=== PATIENT | female | born 1955 | race Caucasian/White ===

== ENCOUNTER 2017-03-15 16:40 | Emergency (ER) | payer MEDICARE, OTHER ==
[~2017-03-15] VITALS: Ht 147.3 cm; Wt 108.0 kg
--- OUTSIDE RECORDS SUMMARY | ~2017-03-15 | XMS ---
Demographics + + + | Address | [address] | | | [address] | | | [place] [address] | + + + | Preferred Language | Unknown | + + + | Marital Status | Unknown | + + + | Uatsdin Affiliation | Unknown | + + + | Race | Unknown | + + + | Ethnic Group | Unknown | + + + Author + + + | Author | [facility] | + + + | Organization | [facility] | + + + | Address | [address] | | | [place] [address] | + + + | Phone | | + + + Care Team Providers + + + + | Care Lime Boiler Name | Role | Phone | + + + + Unavailable | Unavailable | + + + + PROBLEMS +---------+ + + +--------+ + + | Type | Condition | ICD9-CM | [id number] | Onset | Condition | SNOMED | | | | Code | Code | Dates | Status | Code | +---------+ + + +--------+ + + | Problem | Migraine | G43.001 | | | Active | 07989607 | | | without | | | [...] | I11.9 | | | Active | 49363751 | | | ve | | | [...] | G43.101 | | | Active | 2940863 | | | with aura | | [...] | F33.1 | | | Active | 48756152 | | | , major, | | | | | | | | recurrent, | | | | | | | | moderate | | | | | | +---------+ + + +--------+ + + | 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 | 64290013 | | | tiated | | | | | | | | somatoform | | | | | | | | disorder | | | | | | +---------+ + + +--------+ + + | 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 | 79678915 | | | lorrie | | | | | | +---------+ + + +--------+ + + | Problem | Angina | I20.9 | | | Active | 025055560 | | | pectoris | | | [...] | K21.9 | | | Active | 131872826 | | | hageal | | | [...] | E66.01 | | | Active | 228081720 | | | obesity | | | | | | | | due to | | | | | | | | excess | | | | | | | | calories | | | | | | +---------+ + + +--------+ + + | Problem | Primary | M17.0 | | | Active | 965078827 | | | osteoarthr | | | | | | | | itis of | | | | | | | | both knees | | | | | | +---------+ + + +--------+ + + | Problem | Chronic | | G89.4 | | Active | 476036113 | | | pain | | | | | | | | syndrome | | | | | | +---------+ + + +--------+ + + | Problem | Essential | | I10 | | Active | 38751670 | | | hypertensi | | | | | | | | on | | | | | | +---------+ + + +--------+ + + | Problem | Type 2 | E11.9 | | | Active | 976657087 | | | diabetes | | | [...]
--- OUTSIDE RECORDS SUMMARY | ~2017-03-15 | XMS ---
Demographics + + + | Address | [address] | | | [address] | | | [place] [address] | + + + | Preferred Language [...] | + + + | Organization | [facility] | + + + | Address | [address] | | | [place] [address] | + + + | Phone | | + + + Care Team Providers + + + + | Care Web Content Manager Name | Role | Phone | + + + + Unavailable | Unavailable | + + + + PROBLEMS +---------+ + + +--------+ + + | Type | Condition | ICD9-CM | [id number] | Onset | Condition | SNOMED | | | | Code | Code | Dates | Status | Code | +---------+ + + +--------+ + + | Problem | Migraine | G43.001 | | | Active | 91494603 | | | without | | | [...] | I11.9 | | | Active | 50711999 | | | ve | | | [...] | G43.101 | | | Active | 3243080 | | | with aura | | [...] | F33.1 | | | Active | 07932728 | | | , major, | | | | | | | | recurrent, | | | | | | | | moderate | | | | | | +---------+ + + +--------+ + + | 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 | 64584291 | | | tiated | | | | | | | | somatoform | | | | | | | | disorder | | | | | | +---------+ + + +--------+ + + | 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 | 94064157 | | | lorrie | | | | | | +---------+ + + +--------+ + + | Problem | Angina | I20.9 | | | Active | 387567723 | | | pectoris | | | [...] | K21.9 | | | Active | 743877690 | | | hageal | | | [...] | E66.01 | | | Active | 114925312 | | | obesity | | | | | | | | due to | | | | | | | | excess | | | | | | | | calories | | | | | | +---------+ + + +--------+ + + | Problem | Primary | M17.0 | | | Active | 904951430 | | | osteoarthr | | | | | | | | itis of | | | | | | | | both knees | | | | | | +---------+ + + +--------+ + + | Problem | Chronic | | G89.4 | | Active | 424471780 | | | pain | | | | | | | | syndrome | | | | | | +---------+ + + +--------+ + + | Problem | Essential | | I10 | | Active | 48257343 | | | hypertensi | | | | | | | | on | | | | | | +---------+ + + +--------+ + + | Problem | Type 2 | E11.9 | | | Active | 947289673 | | | diabetes | | | [...]
--- OUTSIDE RECORDS SUMMARY | ~2017-03-15 | XMS ---
Demographics + + + | Address | [address] | | | [address] | | | [place] [address] | + + + | Preferred Language [...] | + + + | Organization | [facility] | + + + | Address | [address] | | | [place] [address] | + + + | Phone | | + + + Care Team Providers + + + + | Care Varnish Remover Name | Role | Phone | + + + + Unavailable | Unavailable | + + + + PROBLEMS +---------+ + + +--------+ + + | Type | Condition | ICD9-CM | [id number] | Onset | Condition | SNOMED | | | | Code | Code | Dates | Status | Code | +---------+ + + +--------+ + + | Problem | Migraine | G43.001 | | | Active | 62328405 | | | without | | | [...] | I11.9 | | | Active | 25435394 | | | ve | | | [...] | G43.101 | | | Active | 2816287 | | | with aura | | [...] | F33.1 | | | Active | 04544327 | | | , major, | | | | | | | | recurrent, | | | | | | | | moderate | | | | | | +---------+ + + +--------+ + + | 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 | 19850874 | | | tiated | | | | | | | | somatoform | | | | | | | | disorder | | | | | | +---------+ + + +--------+ + + | 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 | 17521519 | | | lorrie | | | | | | +---------+ + + +--------+ + + | Problem | Angina | I20.9 | | | Active | 830056815 | | | pectoris | | | [...] | K21.9 | | | Active | 085397687 | | | hageal | | | [...] | E66.01 | | | Active | 256374106 | | | obesity | | | | | | | | due to | | | | | | | | excess | | | | | | | | calories | | | | | | +---------+ + + +--------+ + + | Problem | Primary | M17.0 | | | Active | 543139096 | | | osteoarthr | | | | | | | | itis of | | | | | | | | both knees | | | | | | +---------+ + + +--------+ + + | Problem | Chronic | | G89.4 | | Active | 866305093 | | | pain | | | | | | | | syndrome | | | | | | +---------+ + + +--------+ + + | Problem | Essential | | I10 | | Active | 50149624 | | | hypertensi | | | | | | | | on | | | | | | +---------+ + + +--------+ + + | Problem | Type 2 | E11.9 | | | Active | 960535206 | | | diabetes | | | [...] available PLAN OF CARE VITAL SIGNS MEDICATIONS + + + + + + [...] + + +--------+ RESULTS No Results PROCEDURES No Known procedures IMMUNIZATIONS No Known Immunizations"
--- OUTSIDE RECORDS SUMMARY | ~2017-03-15 | XMS ---
Demographics + + + | Address | [address] | | | [address] | | | [place] [address] | + + + | Preferred Language | Unknown | + + + | Marital Status | Unknown | + + + | Scientologist Affiliation | Unknown | + + + | Race | Unknown | + + + | Ethnic Group | Unknown | + + + Author + + + | Author | [facility] | + + + | Organization | [facility] | + + + | Address | [address] | | | [place] [address] | + + + | Phone | | + + + Care Team Providers + + + + | Care Steel Rigger Name | Role | Phone | + + + + Unavailable | Unavailable | + + + + PROBLEMS +---------+ + + +--------+ + + | Type | Condition | ICD9-CM | XLO46-[id number] | Onset | Condition | SNOMED | | | | Code | Code | Dates | Status | Code | +---------+ + + +--------+ + + | Problem | Migraine | G43.001 | | | Active | 46894295 | | | without | | | [...] | I11.9 | | | Active | 80162454 | | | ve | | | [...] | G43.101 | | | Active | 6038157 | | | with aura | | [...] | F33.1 | | | Active | 52201448 | | | , major, | | | | | | | | recurrent, | | | | | | | | moderate | | | | | | +---------+ + + +--------+ + + | 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 | 49167647 | | | tiated | | | | | | | | somatoform | | | | | | | | disorder | | | | | | +---------+ + + +--------+ + + | 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 | 69349161 | | | lorrie | | | | | | +---------+ + + +--------+ + + | Problem | Angina | I20.9 | | | Active | 708145399 | | | pectoris | | | [...] | K21.9 | | | Active | 918059509 | | | hageal | | | [...] | E66.01 | | | Active | 725095437 | | | obesity | | | | | | | | due to | | | | | | | | excess | | | | | | | | calories | | | | | | +---------+ + + +--------+ + + | Problem | Primary | M17.0 | | | Active | 843790466 | | | osteoarthr | | | | | | | | itis of | | | | | | | | both knees | | | | | | +---------+ + + +--------+ + + | Problem | Chronic | | G89.4 | | Active | 852855077 | | | pain | | | | | | | | syndrome | | | | | | +---------+ + + +--------+ + + | Problem | Essential | | I10 | | Active | 59693701 | | | hypertensi | | | | | | | | on | | | | | | +---------+ + + +--------+ + + | Problem | Type 2 | E11.9 | | | Active | 299282931 | | | diabetes | | | [...]
--- OUTSIDE RECORDS SUMMARY | ~2017-03-15 | XMS ---
Demographics + + + | Address | [address] | | | [address] | | | [place] [address] | + + + | Preferred Language [...] | + + + | Organization | [facility] | + + + | Address | [address] | | | [place] [address] | + + + | Phone | | + + + Care Team Providers + + + + | Care Track Repairer Helper Name | Role | Phone | + + + + Unavailable | Unavailable | + + + + PROBLEMS +---------+ + + +--------+ + + | Type | Condition | ICD9-CM | KSP28-XM | Onset | Condition | SNOMED | | | | Code | Code | Dates | Status | Code | +---------+ + + +--------+ + + | Problem | Migraine | G43.001 | | | Active | 10829930 | | | without | | | [...] | I11.9 | | | Active | 49904872 | | | ve | | | [...] | G43.101 | | | Active | 1178735 | | | with aura | | [...] | F33.1 | | | Active | 70994482 | | | , major, | | | | | | | | recurrent, | | | | | | | | moderate | | | | | | +---------+ + + +--------+ + + | 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 | 94177865 | | | tiated | | | | | | | | somatoform | | | | | | | | disorder | | | | | | +---------+ + + +--------+ + + | 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 | 79302295 | | | lorrie | | | | | | +---------+ + + +--------+ + + | Problem | Angina | I20.9 | | | Active | 882253948 | | | pectoris | | | [...] | K21.9 | | | Active | 579557117 | | | hageal | | | [...] | E66.01 | | | Active | 941408197 | | | obesity | | | | | | | | due to | | | | | | | | excess | | | | | | | | calories | | | | | | +---------+ + + +--------+ + + | Problem | Primary | M17.0 | | | Active | 419728781 | | | osteoarthr | | | | | | | | itis of | | | | | | | | both knees | | | | | | +---------+ + + +--------+ + + | Problem | Chronic | | G89.4 | | Active | 880851097 | | | pain | | | | | | | | syndrome | | | | | | +---------+ + + +--------+ + + | Problem | Essential | | I10 | | Active | 25865859 | | | hypertensi | | | | | | | | on | | | | | | +---------+ + + +--------+ + + | Problem | Type 2 | E11.9 | | | Active | 659470708 | | | diabetes | | | [...]
--- OUTSIDE RECORDS SUMMARY | ~2017-03-15 | XMS ---
Demographics + + + | Address | [address] | | | [address] | | | [place] [address] | + + + | Preferred Language | Unknown | + + + | Marital Status | Unknown | + + + | Episcopal Affiliation | Unknown | + + + | Race | Unknown | + + + | Ethnic Group | Unknown | + + + Author + + + | Author | [facility] | + + + | Organization | [facility] | + + + | Address | [address] | | | [place] [address] | + + + | Phone | | + + + Care Team Providers + + + + | Care Informix Developer Name | Role | Phone | + + + + Unavailable | Unavailable | + + + + PROBLEMS +---------+ + + +--------+ + + | Type | Condition | ICD9-CM | HUM25-LP | Onset | Condition | SNOMED | | | | Code | Code | Dates | Status | Code | +---------+ + + +--------+ + + | Problem | Migraine | G43.001 | | | Active | 44057507 | | | without | | | [...] | I11.9 | | | Active | 50889576 | | | ve | | | [...] | G43.101 | | | Active | 2762576 | | | with aura | | [...] | F33.1 | | | Active | 24431908 | | | , major, | | | | | | | | recurrent, | | | | | | | | moderate | | | | | | +---------+ + + +--------+ + + | 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 | 55208486 | | | tiated | | | | | | | | somatoform | | | | | | | | disorder | | | | | | +---------+ + + +--------+ + + | 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 | 65872784 | | | lorrie | | | | | | +---------+ + + +--------+ + + | Problem | Angina | I20.9 | | | Active | 642011240 | | | pectoris | | | [...] | K21.9 | | | Active | 736458961 | | | hageal | | | [...] | E66.01 | | | Active | 140621389 | | | obesity | | | | | | | | due to | | | | | | | | excess | | | | | | | | calories | | | | | | +---------+ + + +--------+ + + | Problem | Primary | M17.0 | | | Active | 591968518 | | | osteoarthr | | | | | | | | itis of | | | | | | | | both knees | | | | | | +---------+ + + +--------+ + + | Problem | Chronic | | G89.4 | | Active | 413656851 | | | pain | | | | | | | | syndrome | | | | | | +---------+ + + +--------+ + + | Problem | Essential | | I10 | | Active | 37148360 | | | hypertensi | | | | | | | | on | | | | | | +---------+ + + +--------+ + + | Problem | Type 2 | E11.9 | | | Active | 892343809 | | | diabetes | | | [...]
--- OUTSIDE RECORDS SUMMARY | ~2017-03-15 | XMS ---
Demographics + + + | Address | [address] | | | [address] | | | [place] [address] | + + + | Preferred Language | Unknown | + + + | Marital Status | Unknown | + + + | Buddhism Affiliation | Unknown | + + + | Race | Unknown | + + + | Ethnic Group | Unknown | + + + Author + + + | Author | [facility] | + + + | Organization | [facility] | + + + | Address | [address] | | | [place] [address] | + + + | Phone | | + + + Care Team Providers + + + + | Care Field Observer Name | Role | Phone | + + + + Unavailable | Unavailable | + + + + PROBLEMS +---------+ + + +--------+ + + | Type | Condition | ICD9-CM | HYG68-[id number] | Onset | Condition | SNOMED | | | | Code | Code | Dates | Status | Code | +---------+ + + +--------+ + + | Problem | Migraine | G43.001 | | | Active | 33113665 | | | without | | | [...] | I11.9 | | | Active | 65330533 | | | ve | | | [...] | G43.101 | | | Active | 4668242 | | | with aura | | [...] | F33.1 | | | Active | 19244683 | | | , major, | | | | | | | | recurrent, | | | | | | | | moderate | | | | | | +---------+ + + +--------+ + + | 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 | 11873195 | | | tiated | | | | | | | | somatoform | | | | | | | | disorder | | | | | | +---------+ + + +--------+ + + | 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 | 71318664 | | | lorrie | | | | | | +---------+ + + +--------+ + + | Problem | Angina | I20.9 | | | Active | 339596271 | | | pectoris | | | [...] | K21.9 | | | Active | 188129657 | | | hageal | | | [...] | E66.01 | | | Active | 184734862 | | | obesity | | | | | | | | due to | | | | | | | | excess | | | | | | | | calories | | | | | | +---------+ + + +--------+ + + | Problem | Primary | M17.0 | | | Active | 438057423 | | | osteoarthr | | | | | | | | itis of | | | | | | | | both knees | | | | | | +---------+ + + +--------+ + + | Problem | Chronic | | G89.4 | | Active | 229692682 | | | pain | | | | | | | | syndrome | | | | | | +---------+ + + +--------+ + + | Problem | Essential | | I10 | | Active | 03001798 | | | hypertensi | | | | | | | | on | | | | | | +---------+ + + +--------+ + + | Problem | Type 2 | E11.9 | | | Active | 649268487 | | | diabetes | | | [...]
--- OUTSIDE RECORDS SUMMARY | ~2017-03-15 | XMS ---
Demographics + + + | Address | [address] | | | [address] | | | [place] [address] | + + + | Preferred Language | Unknown | + + + | Marital Status | Unknown | + + + | Denominational Affiliation | Unknown | + + + | Race | Unknown | + + + | Ethnic Group | Unknown | + + + Author + + + | Author | [facility] | + + + | Organization | [facility] | + + + | Address | [address] | | | [place] [address] | + + + | Phone | | + + + Care Team Providers + + + + | Care Grape Crusher Name | Role | Phone | + + + + Unavailable | Unavailable | + + + + PROBLEMS +---------+ + + +--------+ + + | Type | Condition | ICD9-CM | BLW98-[id number] | Onset | Condition | SNOMED | | | | Code | Code | Dates | Status | Code | +---------+ + + +--------+ + + | Problem | Migraine | G43.001 | | | Active | 96482576 | | | without | | | [...] | I11.9 | | | Active | 39416733 | | | ve | | | [...] | G43.101 | | | Active | 2114251 | | | with aura | | [...] | F33.1 | | | Active | 43062668 | | | , major, | | | | | | | | recurrent, | | | | | | | | moderate | | | | | | +---------+ + + +--------+ + + | 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 | 45295918 | | | tiated | | | | | | | | somatoform | | | | | | | | disorder | | | | | | +---------+ + + +--------+ + + | 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 | 81212521 | | | lorrie | | | | | | +---------+ + + +--------+ + + | Problem | Angina | I20.9 | | | Active | 457330317 | | | pectoris | | | [...] | K21.9 | | | Active | 689099528 | | | hageal | | | [...] | E66.01 | | | Active | 604501501 | | | obesity | | | | | | | | due to | | | | | | | | excess | | | | | | | | calories | | | | | | +---------+ + + +--------+ + + | Problem | Primary | M17.0 | | | Active | 537028666 | | | osteoarthr | | | | | | | | itis of | | | | | | | | both knees | | | | | | +---------+ + + +--------+ + + | Problem | Chronic | | G89.4 | | Active | 533498797 | | | pain | | | | | | | | syndrome | | | | | | +---------+ + + +--------+ + + | Problem | Essential | | I10 | | Active | 40213499 | | | hypertensi | | | | | | | | on | | | | | | +---------+ + + +--------+ + + | Problem | Type 2 | E11.9 | | | Active | 760405259 | | | diabetes | | | [...]
--- OUTSIDE RECORDS SUMMARY | ~2017-03-15 | XMS ---
Demographics + + + | Address | [address] | | | [address] | | | [place] [address] | + + + | Preferred Language | Unknown | + + + | Marital Status | Unknown | + + + | Taoism Affiliation | Unknown | + + + | Race | Unknown | + + + | Ethnic Group | Unknown | + + + Author + + + | Author | [facility] | + + + | Organization | [facility] | + + + | Address | [address] | | | [place] [address] | + + + | Phone | | + + + Care Team Providers + + + + | Care Pharmacy Benefit Manager Name | Role | Phone | + + + + Unavailable | Unavailable | + + + + PROBLEMS +---------+ + + +--------+ + + | Type | Condition | ICD9-CM | HKT44-KO | Onset | Condition | SNOMED | | | | Code | Code | Dates | Status | Code | +---------+ + + +--------+ + + | Problem | Migraine | G43.001 | | | Active | 95388778 | | | without | | | [...] | I11.9 | | | Active | 62135381 | | | ve | | | [...] | G43.101 | | | Active | 7441167 | | | with aura | | [...] | F33.1 | | | Active | 72377285 | | | , major, | | | | | | | | recurrent, | | | | | | | | moderate | | | | | | +---------+ + + +--------+ + + | 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 | 80793812 | | | tiated | | | | | | | | somatoform | | | | | | | | disorder | | | | | | +---------+ + + +--------+ + + | 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 | 17901512 | | | lorrie | | | | | | +---------+ + + +--------+ + + | Problem | Angina | I20.9 | | | Active | 275418508 | | | pectoris | | | [...] | K21.9 | | | Active | 022932795 | | | hageal | | | [...] | E66.01 | | | Active | 942208692 | | | obesity | | | | | | | | due to | | | | | | | | excess | | | | | | | | calories | | | | | | +---------+ + + +--------+ + + | Problem | Primary | M17.0 | | | Active | 074186875 | | | osteoarthr | | | | | | | | itis of | | | | | | | | both knees | | | | | | +---------+ + + +--------+ + + | Problem | Chronic | | G89.4 | | Active | 184140626 | | | pain | | | | | | | | syndrome | | | | | | +---------+ + + +--------+ + + | Problem | Essential | | I10 | | Active | 05117910 | | | hypertensi | | | | | | | | on | | | | | | +---------+ + + +--------+ + + | Problem | Type 2 | E11.9 | | | Active | 184702456 | | | diabetes | | | [...] information available PLAN OF CARE VITAL SIGNS + + + + | Height | 4 ft 10 in in | 2017-02-01 | + + + + | Weight | 244.0 lbs | 2017-02-01 | + + + + | BMI | 50.99 kg/m2 | 2017-02-01 | + + + + | Heart Rate | 79 /min | 2017-02-01 | + + + + | Blood pressure systolic | 145 mm Hg | 2017-02-01 | + + + + | Blood pressure diastolic | 81 mm Hg | 2017-02-01 | + + + + MEDICATIONS + [...] Orally | 1 tablet | 24h | Nov, | | 30 days | Active | | de | Once a | | | 2016 | | | | | Mononitr | day | | | | | | | | ate ER | | | | | | | | | 30 MG | | | | | | | | + + + + + + + +--------+ | Salsalat | Orally | 1-2 | | Aug, | Dec, | 30 | Active | | e 750 MG | two to | tablet | | 2015 | 2016 | day(s) | | | | three | | | | | | | | | times a | | | | | | | | | day prn | | | | | | | | | with | | | | | | | | | food | | | | | | | [...] + + + + + +--------+ | Nitrogly | | | | | | | Active | | cerin | | | | | | | | | 0.4 MG | | | | | | | | + + + + + + + +--------+ | Depend | | as | | 23 Hector, | | 30 | Active | | Underwea | | directed | | 2017 | | day(s) | | | r | | | | | | | | | X-Large | | | | | | | | | . | | | | | | | [...] 24h | Sep, | 7 Feb, | 30 days | Active | | Barrier | y once | applicat | | 2017 | 2018 | | | | Cream . | daily | ion | | | | | | + + + + + + + +--------+ RESULTS No Results PROCEDURES No Known procedures IMMUNIZATIONS No Known Immunizations"
--- OUTSIDE RECORDS SUMMARY | ~2017-03-15 | XMS ---
Demographics + + + | Address | [address] | | | [address] | | | [place] [address] | + + + | Preferred Language | Unknown | + + + | Marital Status | Unknown | + + + | Hoahaoism Affiliation | Unknown | + + + | Race | Unknown | + + + | Ethnic Group | Unknown | + + + Author + + + | Author | [facility] | + + + | Organization | [facility] | + + + | Address | [address] | | | [place] [address] | + + + | Phone | | + + + Care Team Providers + + + + | Care Third Steel Pourer Name | Role | Phone | + + + + Unavailable | Unavailable | + + + + PROBLEMS +---------+ + + +--------+ + + | Type | Condition | ICD9-CM | [id number] | Onset | Condition | SNOMED | | | | Code | Code | Dates | Status | Code | +---------+ + + +--------+ + + | Problem | Migraine | G43.001 | | | Active | 07673121 | | | without | | | [...] | I11.9 | | | Active | 14913698 | | | ve | | | [...] | G43.101 | | | Active | 2927847 | | | with aura | | [...] | F33.1 | | | Active | 48583104 | | | , major, | | | | | | | | recurrent, | | | | | | | | moderate | | | | | | +---------+ + + +--------+ + + | 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 | 71491538 | | | tiated | | | | | | | | somatoform | | | | | | | | disorder | | | | | | +---------+ + + +--------+ + + | 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 | 13198069 | | | lorrie | | | | | | +---------+ + + +--------+ + + | Problem | Angina | I20.9 | | | Active | [id number] | | | pectoris | | | [...] | K21.9 | | | Active | [id number] | | | hageal | | | [...] | E66.01 | | | Active | [id number] | | | obesity | | | | | | | | due to | | | | | | | | excess | | | | | | | | calories | | | | | | +---------+ + + +--------+ + + | Problem | Primary | M17.0 | | | Active | [id number] | | | osteoarthr | | | | | | | | itis of | | | | | | | | both knees | | | | | | +---------+ + + +--------+ + + | Problem | Chronic | | G89.4 | | Active | [id number] | | | pain | | | | | | | | syndrome | | | | | | +---------+ + + +--------+ + + | Problem | Essential | | I10 | | Active | [id number] | | | hypertensi | | | | | | | | on | | | | | | +---------+ + + +--------+ + + | Problem | Type 2 | E11.9 | | | Active | [id number] | | | diabetes | | | [...]
--- OUTSIDE RECORDS SUMMARY | ~2017-03-15 | XMS ---
Demographics + + + | Address | [address] | | | [address] | | | [place] [address] | + + + | Preferred Language | Unknown | + + + | Marital Status | Unknown | + + + | Yarsanism Affiliation | Unknown | + + + | Race | Unknown | + + + | Ethnic Group | Unknown | + + + Author + + + | Author | [facility] | + + + | Organization | [facility] | + + + | Address | [address] | | | [place] [address] | + + + | Phone | | + + + Care Team Providers + + + + | Care Monorail Hooker Name | Role | Phone | + + + + Unavailable | Unavailable | + + + + PROBLEMS +---------+ + + +--------+ + + | Type | Condition | ICD9-CM | [id number] | Onset | Condition | SNOMED | | | | Code | Code | Dates | Status | Code | +---------+ + + +--------+ + + | Problem | Migraine | G43.001 | | | Active | 41010581 | | | without | | | [...] | I11.9 | | | Active | 12044042 | | | ve | | | [...] | G43.101 | | | Active | 5649699 | | | with aura | | [...] | F33.1 | | | Active | 34952870 | | | , major, | | | | | | | | recurrent, | | | | | | | | moderate | | | | | | +---------+ + + +--------+ + + | 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 | 96950273 | | | tiated | | | | | | | | somatoform | | | | | | | | disorder | | | | | | +---------+ + + +--------+ + + | 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 | 59904121 | | | lorrie | | | | | | +---------+ + + +--------+ + + | Problem | Angina | I20.9 | | | Active | 617216543 | | | pectoris | | | [...] | K21.9 | | | Active | 673628511 | | | hageal | | | [...] | E66.01 | | | Active | 662921826 | | | obesity | | | | | | | | due to | | | | | | | | excess | | | | | | | | calories | | | | | | +---------+ + + +--------+ + + | Problem | Primary | M17.0 | | | Active | 417006115 | | | osteoarthr | | | | | | | | itis of | | | | | | | | both knees | | | | | | +---------+ + + +--------+ + + | Problem | Chronic | | G89.4 | | Active | 600578326 | | | pain | | | | | | | | syndrome | | | | | | +---------+ + + +--------+ + + | Problem | Essential | | I10 | | Active | 12984373 | | | hypertensi | | | | | | | | on | | | | | | +---------+ + + +--------+ + + | Problem | Type 2 | E11.9 | | | Active | 217707105 | | | diabetes | | | [...]
--- OUTSIDE RECORDS SUMMARY | ~2017-03-15 | XMS ---
Demographics + + + | Address | [address] | | | [address] | | | [place] [address] | + + + | Preferred Language | Unknown | + + + | Marital Status | Unknown | + + + | Mandaeism Affiliation | Unknown | + + + | Race | Unknown | + + + | Ethnic Group | Unknown | + + + Author + + + | Author | [facility] | + + + | Organization | [facility] | + + + | Address | [address] | | | [place] [address] | + + + | Phone | | + + + Care Team Providers + + + + | Care Apparatus Lineman Name | Role | Phone | + + + + Unavailable | Unavailable | + + + + PROBLEMS +---------+ + + +--------+ + + | Type | Condition | ICD9-CM | OJE32-FR | Onset | Condition | SNOMED | | | | Code | Code | Dates | Status | Code | +---------+ + + +--------+ + + | Problem | Migraine | G43.001 | | | Active | 25166526 | | | without | | | [...] | I11.9 | | | Active | 37433667 | | | ve | | | [...] | G43.101 | | | Active | 7298035 | | | with aura | | [...] | F33.1 | | | Active | 18941242 | | | , major, | | | | | | | | recurrent, | | | | | | | | moderate | | | | | | +---------+ + + +--------+ + + | 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 | 69309341 | | | tiated | | | | | | | | somatoform | | | | | | | | disorder | | | | | | +---------+ + + +--------+ + + | 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 | 34907051 | | | lorrie | | | | | | +---------+ + + +--------+ + + | Problem | Angina | I20.9 | | | Active | 957598089 | | | pectoris | | | [...] | K21.9 | | | Active | 073211182 | | | hageal | | | [...] | E66.01 | | | Active | 254405351 | | | obesity | | | | | | | | due to | | | | | | | | excess | | | | | | | | calories | | | | | | +---------+ + + +--------+ + + | Problem | Primary | M17.0 | | | Active | 992781990 | | | osteoarthr | | | | | | | | itis of | | | | | | | | both knees | | | | | | +---------+ + + +--------+ + + | Problem | Chronic | | G89.4 | | Active | 042849239 | | | pain | | | | | | | | syndrome | | | | | | +---------+ + + +--------+ + + | Problem | Essential | | I10 | | Active | 07386351 | | | hypertensi | | | | | | | | on | | | | | | +---------+ + + +--------+ + + | Problem | Type 2 | E11.9 | | | Active | 190906843 | | | diabetes | | | [...] Salsalat | Orally | 1-2 | | 01 Dec, | 26 Dec, | 30 | Active | | e 750 MG | two to | tablet | | 2016 | 2017 | day(s) | | | | three [...] | 24h | 10 Nov, | | 30 days | Active [...] | 13 Sep, | 7 Feb, | 30 days [...]
--- OUTSIDE RECORDS SUMMARY | ~2017-03-15 | XMS ---
Demographics + + + | Address | [address] | | | [address] | | | [place] [address] | + + + | Preferred Language | Unknown | + + + | Marital Status | Unknown | + + + | Orthodox Affiliation | Unknown | + + + | Race | Unknown | + + + | Ethnic Group | Unknown | + + + Author + + + | Author | [facility] | + + + | Organization | [facility] | + + + | Address | [address] | | | [place] [address] | + + + | Phone | | + + + Care Team Providers + + + + | Care Parking Officer Name | Role | Phone | + + + + Unavailable | Unavailable | + + + + PROBLEMS +---------+ + + +--------+ + + | Type | Condition | ICD9-CM | TER94-OQ | Onset | Condition | SNOMED | | | | Code | Code | Dates | Status | Code | +---------+ + + +--------+ + + | Problem | Migraine | G43.001 | | | Active | 40640317 | | | without | | | [...] | I11.9 | | | Active | 41231020 | | | ve | | | [...] | G43.101 | | | Active | 5411305 | | | with aura | | [...] | F33.1 | | | Active | 75362152 | | | , major, | | | | | | | | recurrent, | | | | | | | | moderate | | | | | | +---------+ + + +--------+ + + | 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 | 99296265 | | | tiated | | | | | | | | somatoform | | | | | | | | disorder | | | | | | +---------+ + + +--------+ + + | 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 | 10372897 | | | lorrie | | | | | | +---------+ + + +--------+ + + | Problem | Angina | I20.9 | | | Active | 268158808 | | | pectoris | | | [...] | K21.9 | | | Active | 585385894 | | | hageal | | | [...] | E66.01 | | | Active | 495874362 | | | obesity | | | | | | | | due to | | | | | | | | excess | | | | | | | | calories | | | | | | +---------+ + + +--------+ + + | Problem | Primary | M17.0 | | | Active | 531740248 | | | osteoarthr | | | | | | | | itis of | | | | | | | | both knees | | | | | | +---------+ + + +--------+ + + | Problem | Chronic | | G89.4 | | Active | 517257721 | | | pain | | | | | | | | syndrome | | | | | | +---------+ + + +--------+ + + | Problem | Essential | | I10 | | Active | 98020995 | | | hypertensi | | | | | | | | on | | | | | | +---------+ + + +--------+ + + | Problem | Type 2 | E11.9 | | | Active | 102943226 | | | diabetes | | | [...]
--- OUTSIDE RECORDS SUMMARY | ~2017-03-15 | XMS ---
Demographics + + + | Address | [address] | | | [address] | | | [place] [address] | + + + | Preferred Language | Unknown | + + + | Marital Status | Unknown | + + + | Druze Affiliation | Unknown | + + + | Race | Unknown | + + + | Ethnic Group | Unknown | + + + Author + + + | Author | [facility] | + + + | Organization | [facility] | + + + | Address | [address] | | | [place] [address] | + + + | Phone | | + + + Care Team Providers + + + + | Care Buyer Broker Name | Role | Phone | + + + + Unavailable | Unavailable | + + + + PROBLEMS +---------+ + + +--------+ + + | Type | Condition | ICD9-CM | NLS60-ZV | Onset | Condition | SNOMED | | | | Code | Code | Dates | Status | Code | +---------+ + + +--------+ + + | Problem | Migraine | G43.001 | | | Active | 92249435 | | | without | | | [...] | I11.9 | | | Active | 84776058 | | | ve | | | [...] | G43.101 | | | Active | 0408456 | | | with aura | | [...] | F33.1 | | | Active | 57187998 | | | , major, | | | | | | | | recurrent, | | | | | | | | moderate | | | | | | +---------+ + + +--------+ + + | 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 | 23576513 | | | tiated | | | | | | | | somatoform | | | | | | | | disorder | | | | | | +---------+ + + +--------+ + + | 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 | 89093615 | | | lorrie | | | | | | +---------+ + + +--------+ + + | Problem | Angina | I20.9 | | | Active | 639046930 | | | pectoris | | | [...] | K21.9 | | | Active | 200504880 | | | hageal | | | [...] | E66.01 | | | Active | 562402010 | | | obesity | | | | | | | | due to | | | | | | | | excess | | | | | | | | calories | | | | | | +---------+ + + +--------+ + + | Problem | Primary | M17.0 | | | Active | 238816895 | | | osteoarthr | | | | | | | | itis of | | | | | | | | both knees | | | | | | +---------+ + + +--------+ + + | Problem | Chronic | | G89.4 | | Active | 822317211 | | | pain | | | | | | | | syndrome | | | | | | +---------+ + + +--------+ + + | Problem | Essential | | I10 | | Active | 78438785 | | | hypertensi | | | | | | | | on | | | | | | +---------+ + + +--------+ + + | Problem | Type 2 | E11.9 | | | Active | 339211626 | | | diabetes | | | [...]
--- OUTSIDE RECORDS SUMMARY | ~2017-03-15 | XMS ---
Demographics + + + | Address | [address] | | | [address] | | | [place] [address] | + + + | Preferred Language | Unknown | + + + | Marital Status | Unknown | + + + | Presybeterian Affiliation | Unknown | + + + | Race | Unknown | + + + | Ethnic Group | Unknown | + + + Author + + + | Author | [facility] | + + + | Organization | [facility] | + + + | Address | [address] | | | [place] [address] | + + + | Phone | | + + + Care Team Providers + + + + | Care Public Policy Analyst Name | Role | Phone | + + + + Unavailable | Unavailable | + + + + PROBLEMS +---------+ + + +--------+ + + | Type | Condition | ICD9-CM | OUM70-QU | Onset | Condition | SNOMED | | | | Code | Code | Dates | Status | Code | +---------+ + + +--------+ + + | Problem | Migraine | G43.001 | | | Active | 51468552 | | | without | | | [...] | I11.9 | | | Active | 92358318 | | | ve | | | [...] | G43.101 | | | Active | 0150208 | | | with aura | | [...] | F33.1 | | | Active | 44408961 | | | , major, | | | | | | | | recurrent, | | | | | | | | moderate | | | | | | +---------+ + + +--------+ + + | 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 | 81814890 | | | tiated | | | | | | | | somatoform | | | | | | | | disorder | | | | | | +---------+ + + +--------+ + + | 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 | 33407718 | | | lorrie | | | | | | +---------+ + + +--------+ + + | Problem | Angina | I20.9 | | | Active | 303195498 | | | pectoris | | | [...] | K21.9 | | | Active | 077208640 | | | hageal | | | [...] | E66.01 | | | Active | 519925239 | | | obesity | | | | | | | | due to | | | | | | | | excess | | | | | | | | calories | | | | | | +---------+ + + +--------+ + + | Problem | Primary | M17.0 | | | Active | 137311860 | | | osteoarthr | | | | | | | | itis of | | | | | | | | both knees | | | | | | +---------+ + + +--------+ + + | Problem | Chronic | | G89.4 | | Active | 515829627 | | | pain | | | | | | | | syndrome | | | | | | +---------+ + + +--------+ + + | Problem | Essential | | I10 | | Active | 70538653 | | | hypertensi | | | | | | | | on | | | | | | +---------+ + + +--------+ + + | Problem | Type 2 | E11.9 | | | Active | 638379317 | | | diabetes | | | [...]
--- OUTSIDE RECORDS SUMMARY | ~2017-03-15 | XMS ---
Demographics + + + | Address | [address] | | | [address] | | | [place] [address] | + + + | Preferred Language [...] | + + + | Organization | [facility] | + + + | Address | [address] | | | [place] [address] | + + + | Phone | | + + + Care Team Providers + + + + | Care Cloth Finisher Name | Role | Phone | + + + + Unavailable | Unavailable | + + + + PROBLEMS +---------+ + + +--------+ + + | Type | Condition | ICD9-CM | YQL21-TL | Onset | Condition | SNOMED | | | | Code | Code | Dates | Status | Code | +---------+ + + +--------+ + + | Problem | Migraine | G43.001 | | | Active | 96028021 | | | without | | | [...] | I11.9 | | | Active | 81373648 | | | ve | | | [...] | G43.101 | | | Active | 5006892 | | | with aura | | [...] | F33.1 | | | Active | 76570308 | | | , major, | | | | | | | | recurrent, | | | | | | | | moderate | | | | | | +---------+ + + +--------+ + + | 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 | 34830220 | | | tiated | | | | | | | | somatoform | | | | | | | | disorder | | | | | | +---------+ + + +--------+ + + | 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 | 68442628 | | | lorrie | | | | | | +---------+ + + +--------+ + + | Problem | Angina | I20.9 | | | Active | 572675405 | | | pectoris | | | [...] | K21.9 | | | Active | 189045646 | | | hageal | | | [...] | E66.01 | | | Active | 480718422 | | | obesity | | | | | | | | due to | | | | | | | | excess | | | | | | | | calories | | | | | | +---------+ + + +--------+ + + | Problem | Primary | M17.0 | | | Active | 637730216 | | | osteoarthr | | | | | | | | itis of | | | | | | | | both knees | | | | | | +---------+ + + +--------+ + + | Problem | Chronic | | G89.4 | | Active | 800197253 | | | pain | | | | | | | | syndrome | | | | | | +---------+ + + +--------+ + + | Problem | Essential | | I10 | | Active | 87933162 | | | hypertensi | | | | | | | | on | | | | | | +---------+ + + +--------+ + + | Problem | Type 2 | E11.9 | | | Active | 500848541 | | | diabetes | | | [...]
--- OUTSIDE RECORDS SUMMARY | ~2017-03-15 | XMS ---
Demographics + + + | Address | [address] | | | [address] | | | [place] [address] | + + + | Preferred Language | Unknown | + + + | Marital Status | Unknown | + + + | Yazdanism Affiliation | Unknown | + + + | Race | Unknown | + + + | Ethnic Group | Unknown | + + + Author + + + | Author | [facility] | + + + | Organization | [facility] | + + + | Address | [address] | | | [place] [address] | + + + | Phone | | + + + Care Team Providers + + + + | Care Dietary Cook Name | Role | Phone | + + + + Unavailable | Unavailable | + + + + PROBLEMS +---------+ + + +--------+ + + | Type | Condition | ICD9-CM | KIZ49-TE | Onset | Condition | SNOMED | | | | Code | Code | Dates | Status | Code | +---------+ + + +--------+ + + | Problem | Migraine | G43.001 | | | Active | 87753123 | | | without | | | [...] | I11.9 | | | Active | 78973816 | | | ve | | | [...] | G43.101 | | | Active | 2102484 | | | with aura | | [...] | F33.1 | | | Active | 84930684 | | | , major, | | | | | | | | recurrent, | | | | | | | | moderate | | | | | | +---------+ + + +--------+ + + | 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 | 56043813 | | | tiated | | | | | | | | somatoform | | | | | | | | disorder | | | | | | +---------+ + + +--------+ + + | 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 | 06570159 | | | lorrie | | | | | | +---------+ + + +--------+ + + | Problem | Angina | I20.9 | | | Active | 348078419 | | | pectoris | | | [...] | K21.9 | | | Active | 195394508 | | | hageal | | | [...] | E66.01 | | | Active | 317679912 | | | obesity | | | | | | | | due to | | | | | | | | excess | | | | | | | | calories | | | | | | +---------+ + + +--------+ + + | Problem | Primary | M17.0 | | | Active | 229843672 | | | osteoarthr | | | | | | | | itis of | | | | | | | | both knees | | | | | | +---------+ + + +--------+ + + | Problem | Chronic | | G89.4 | | Active | 342355981 | | | pain | | | | | | | | syndrome | | | | | | +---------+ + + +--------+ + + | Problem | Essential | | I10 | | Active | 49540817 | | | hypertensi | | | | | | | | on | | | | | | +---------+ + + +--------+ + + | Problem | Type 2 | E11.9 | | | Active | 854465781 | | | diabetes | | | [...]
--- OUTSIDE RECORDS SUMMARY | ~2017-03-15 | XMS ---
Demographics + + + | Address | [address] | | | [address] | | | [place] [address] | + + + | Preferred Language | Unknown | + + + | Marital Status | Unknown | + + + | Gnosticism Affiliation | Unknown | + + + | Race | Unknown | + + + | Ethnic Group | Unknown | + + + Author + + + | Author | [facility] | + + + | Organization | [facility] | + + + | Address | [address] | | | [place] [address] | + + + | Phone | | + + + Care Team Providers + + + + | Care Oyster Grower Name | Role | Phone | + + + + Unavailable | Unavailable | + + + + PROBLEMS +---------+ + + +--------+ + + | Type | Condition | ICD9-CM | OTJ25-ES | Onset | Condition | SNOMED | | | | Code | Code | Dates | Status | Code | +---------+ + + +--------+ + + | Problem | Migraine | G43.001 | | | Active | 05384465 | | | without | | | [...] | I11.9 | | | Active | 23133664 | | | ve | | | [...] | G43.101 | | | Active | 9745327 | | | with aura | | [...] | F33.1 | | | Active | 40101637 | | | , major, | | | | | | | | recurrent, | | | | | | | | moderate | | | | | | +---------+ + + +--------+ + + | 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 | 42358369 | | | tiated | | | | | | | | somatoform | | | | | | | | disorder | | | | | | +---------+ + + +--------+ + + | 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 | 22769553 | | | lorrie | | | | | | +---------+ + + +--------+ + + | Problem | Angina | I20.9 | | | Active | 351217587 | | | pectoris | | | [...] | K21.9 | | | Active | 315080953 | | | hageal | | | [...] | E66.01 | | | Active | 198664113 | | | obesity | | | | | | | | due to | | | | | | | | excess | | | | | | | | calories | | | | | | +---------+ + + +--------+ + + | Problem | Primary | M17.0 | | | Active | 551261080 | | | osteoarthr | | | | | | | | itis of | | | | | | | | both knees | | | | | | +---------+ + + +--------+ + + | Problem | Chronic | | G89.4 | | Active | 435755371 | | | pain | | | | | | | | syndrome | | | | | | +---------+ + + +--------+ + + | Problem | Essential | | I10 | | Active | 18321105 | | | hypertensi | | | | | | | | on | | | | | | +---------+ + + +--------+ + + | Problem | Type 2 | E11.9 | | | Active | 194949245 | | | diabetes | | | [...]
--- OUTSIDE RECORDS SUMMARY | ~2017-03-15 | XMS ---
Demographics + + + | Address | [address] | | | [address] | | | [place] [address] | + + + | Preferred Language | Unknown | + + + | Marital Status | Unknown | + + + | Zoroastrianism Affiliation | Unknown | + + + | Race | Unknown | + + + | Ethnic Group | Unknown | + + + Author + + + | Author | [facility] | + + + | Organization | [facility] | + + + | Address | [address] | | | [place] [address] | + + + | Phone | | + + + Care Team Providers + + + + | Care Compound Specialist Name | Role | Phone | + + + + Unavailable | Unavailable | + + + + PROBLEMS +---------+ + + +--------+ + + | Type | Condition | ICD9-CM | FMQ43-ZB | Onset | Condition | SNOMED | | | | Code | Code | Dates | Status | Code | +---------+ + + +--------+ + + | Problem | Migraine | G43.001 | | | Active | 05527672 | | | without | | | [...] | I11.9 | | | Active | 55621399 | | | ve | | | [...] | G43.101 | | | Active | 6299952 | | | with aura | | [...] | F33.1 | | | Active | 09134932 | | | , major, | | | | | | | | recurrent, | | | | | | | | moderate | | | | | | +---------+ + + +--------+ + + | 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 | 80272726 | | | tiated | | | | | | | | somatoform | | | | | | | | disorder | | | | | | +---------+ + + +--------+ + + | 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 | 47515891 | | | lorrie | | | | | | +---------+ + + +--------+ + + | Problem | Angina | I20.9 | | | Active | 742366532 | | | pectoris | | | [...] | K21.9 | | | Active | 851570627 | | | hageal | | | [...] | E66.01 | | | Active | 215642492 | | | obesity | | | | | | | | due to | | | | | | | | excess | | | | | | | | calories | | | | | | +---------+ + + +--------+ + + | Problem | Primary | M17.0 | | | Active | 165848474 | | | osteoarthr | | | | | | | | itis of | | | | | | | | both knees | | | | | | +---------+ + + +--------+ + + | Problem | Chronic | | G89.4 | | Active | 311522906 | | | pain | | | | | | | | syndrome | | | | | | +---------+ + + +--------+ + + | Problem | Essential | | I10 | | Active | 85028500 | | | hypertensi | | | | | | | | on | | | | | | +---------+ + + +--------+ + + | Problem | Type 2 | E11.9 | | | Active | 053365691 | | | diabetes | | | [...]
--- OUTSIDE RECORDS SUMMARY | ~2017-03-15 | XMS ---
Demographics + + + | Address | [address] | | | [address] | | | [place] [address] | + + + | Preferred Language [...] | Organization | [facility] | + + + | Address | [address] | | | [place] [address] | + + + | Phone | | + + + Care Team Providers + + + + | Care Pinsetter Mechanic Helper Name | Role | Phone | + + + + Unavailable | Unavailable | + + + + PROBLEMS +---------+ + + +--------+ + + | Type | Condition | ICD9-CM | ICO40-BI | Onset | Condition | SNOMED | | | | Code | Code | Dates | Status | Code | +---------+ + + +--------+ + + | Problem | Migraine | G43.001 | | | Active | 88879916 | | | without | | | [...] | I11.9 | | | Active | 30953899 | | | ve | | | [...] | G43.101 | | | Active | 7758226 | | | with aura | | [...] | F33.1 | | | Active | 94861446 | | | , major, | | | | | | | | recurrent, | | | | | | | | moderate | | | | | | +---------+ + + +--------+ + + | 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 | 29106854 | | | tiated | | | | | | | | somatoform | | | | | | | | disorder | | | | | | +---------+ + + +--------+ + + | 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 | 96163437 | | | lorrie | | | | | | +---------+ + + +--------+ + + | Problem | Angina | I20.9 | | | Active | 286724601 | | | pectoris | | | [...] | K21.9 | | | Active | 239616317 | | | hageal | | | [...] | E66.01 | | | Active | 356238765 | | | obesity | | | | | | | | due to | | | | | | | | excess | | | | | | | | calories | | | | | | +---------+ + + +--------+ + + | Problem | Primary | M17.0 | | | Active | 298571768 | | | osteoarthr | | | | | | | | itis of | | | | | | | | both knees | | | | | | +---------+ + + +--------+ + + | Problem | Chronic | | G89.4 | | Active | 383293857 | | | pain | | | | | | | | syndrome | | | | | | +---------+ + + +--------+ + + | Problem | Essential | | I10 | | Active | 16459229 | | | hypertensi | | | | | | | | on | | | | | | +---------+ + + +--------+ + + | Problem | Type 2 | E11.9 | | | Active | 156364202 | | | diabetes | | | [...]
--- OUTSIDE RECORDS SUMMARY | ~2017-03-15 | XMS ---
Demographics + + + | Address | [address] | | | [address] | | | [place] [address] | + + + | Preferred Language | Unknown | + + + | Marital Status | Unknown | + + + | Samaritan Affiliation | Unknown | + + + | Race | Unknown | + + + | Ethnic Group | Unknown | + + + Author + + + | Author | [facility] | + + + | Organization | [facility] | + + + | Address | [address] | | | [place] [address] | + + + | Phone | | + + + Care Team Providers + + + + | Care Auto Service Dispatcher Name | Role | Phone | + + + + Unavailable | Unavailable | + + + + PROBLEMS +---------+ + + +--------+ + + | Type | Condition | ICD9-CM | [id number] | Onset | Condition | SNOMED | | | | Code | Code | Dates | Status | Code | +---------+ + + +--------+ + + | Problem | Migraine | G43.001 | | | Active | 88967723 | | | without | | | [...] | I11.9 | | | Active | 21034021 | | | ve | | | [...] | G43.101 | | | Active | 2941996 | | | with aura | | [...] | F33.1 | | | Active | 68951642 | | | , major, | | | | | | | | recurrent, | | | | | | | | moderate | | | | | | +---------+ + + +--------+ + + | 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 | 70043726 | | | tiated | | | | | | | | somatoform | | | | | | | | disorder | | | | | | +---------+ + + +--------+ + + | 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 | | | | | | +---------+ + + +--------+ + + | Problem | Angina | I20.9 | | | Active | 042945205 | | | pectoris | | | [...] | K21.9 | | | Active | 137146792 | | | hageal | | | [...] | E66.01 | | | Active | 212139171 | | | obesity | | | | | | | | due to | | | | | | | | excess | | | | | | | | calories | | | | | | +---------+ + + +--------+ + + | Problem | Primary | M17.0 | | | Active | 732541368 | | | osteoarthr | | | | | | | | itis of | | | | | | | | both knees | | | | | | +---------+ + + +--------+ + + | Problem | Chronic | | G89.4 | | Active | 359926341 | | | pain | | | | | | | | syndrome | | | | | | +---------+ + + +--------+ + + | Problem | Essential | | I10 | | Active | 52228989 | | | hypertensi | | | | | | | | on | | | | | | +---------+ + + +--------+ + + | Problem | Type 2 | E11.9 | | | Active | 993423822 | | | diabetes | | | [...]
[~2017-03-15 16:40] MED LIST: ABILIFY5 MG PO; ALLOPURINOL PO; ALLOPURINOL300 MG PO; AMLODIPINE BES2.5 MG PO; ARIPIPRAZOLE2 MG PO; BUSPIRONE HCL10 MG PO; BUSPIRONE HCL5 MG PO; CODEINE SULFATE30 MG PO; COZAAR100 MG PO; CYCLOBENZAPRINE10 MG PO; CYMBALTA60 MG PO; DOXYCYCLINE HYC50 MG PO; DULOXETINE HCL60 MG PO; GABAPENTIN100 MG PO; GLUCOPHAGE500 MG PO; IMITREX50 MG PO; ISOSORBIDE MONO30 MG PO; LIDODERM700 MG TOP; LO-DOSE ASPIRIN81 M1 PO; LORAZEPAM1 MG PO; LOSARTAN POTAS100 MG PO; LYRICA75 MG PO; NAPROXEN500 MG PO; NITROSTAT0.4 MG SL; OMEPRAZOLE20 MG PO; POLYETHYLENE G255 GM PO; PREDNISONE20 MG PO; PROMETHAZINE HC25 M1 PO; PROPRANOLOL HCL60 M1 PO; PROVENTIL HFA6.7 GM INH; SALSALATE750 MG PO; SEROQUEL100 MG PO; SUMATRIPTA6 MG/0.5 M SUB-Q; TOPAMAX100 MG PO; TOPAMAX50 MG PO; TRAMADOL HCL50 MG PO; VITAMIN D2000 UNI1 PO; VITAMIN D32000 UNIT PO; ZITHROMAX250 MG PO
[2017-05-09] MEDS ORDERED: CINSULIN PO (22:08)
[2017-05-09] MEDS ORDERED: ISOSORBIDE DINI30 MG PO (22:09)
[2017-05-09] MEDS ORDERED: ULTRAM50 MG PO (22:11)
[2017-05-09] MEDS ORDERED: IMITREX50 MG PO (23:22)
[2017-08-17] MEDS ORDERED: RANITIDINE HCL150 MG PO (03:26)
[2017-08-17] MEDS ORDERED: GEODON40 MG PO (03:28)
== END 2017-03-15 18:30 | disposition home or self-care (01) ==
LOC: ED 16:40
DX: R10.9 Unspecified abdominal pain (principal); I10 Essential (primary) hypertension; E11.9 Type 2 diabetes mellitus without complications; F32.9 Major depressive disorder, single episode, unspecified; K21.9 Gastro-esophageal reflux disease without esophagitis; I25.10 Atherosclerotic heart disease of native coronary artery without angina pectoris; E66.01 Morbid (severe) obesity due to excess calories; Z86.73 Personal history of transient ischemic attack (TIA), and cerebral infarction without residual deficits; Z90.710 Acquired absence of both cervix and uterus; Z90.89 Acquired absence of other organs; Z88.8 Allergy status to other drugs, medicaments and biological substances; Z88.1 Allergy status to other antibiotic agents; Z88.6 Allergy status to analgesic agent; Z79.82 Long term (current) use of aspirin; Z79.899 Other long term (current) drug therapy
CPT/HCPCS: 80048; 85025; 99283

== ENCOUNTER 2017-03-16 19:24 | Emergency (ER) | payer MEDICARE, OTHER ==
[~2017-03-16] VITALS: Ht 147.3 cm; Wt 108.0 kg
--- OUTSIDE RECORDS SUMMARY | ~2017-03-16 | XMS ---
Demographics + + + | Address | [address] | | | [address] | | | [place] [address] | + + + | Preferred Language | Unknown | + + + | Marital Status | Unknown | + + + | Jainism Affiliation | Unknown | + + + | Race | Unknown | + + + | Ethnic Group | Unknown | + + + Author + + + | Author | [facility] | + + + | Organization | [facility] | + + + | Address | [address] | | | [place] [address] | + + + | Phone | | + + + Care Team Providers + + + + | Care Network Planner Name | Role | Phone | + + + + Unavailable | Unavailable | + + + + PROBLEMS +---------+ + + +--------+ + + | Type | Condition | ICD9-CM | STR53-[id number] | Onset | Condition | SNOMED | | | | Code | Code | Dates | Status | Code | +---------+ + + +--------+ + + | Problem | Migraine | G43.001 | | | Active | 72088257 | | | without | | | [...] | I11.9 | | | Active | 20879492 | | | ve | | | [...] | G43.101 | | | Active | 2591950 | | | with aura | | [...] | F33.1 | | | Active | 08640143 | | | , major, | | | | | | | | recurrent, | | | | | | | | moderate | | | | | | +---------+ + + +--------+ + + | 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 | 83720517 | | | tiated | | | | | | | | somatoform | | | | | | | | disorder | | | | | | +---------+ + + +--------+ + + | 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 | 96076137 | | | lorrie | | | | | | +---------+ + + +--------+ + + | Problem | Angina | I20.9 | | | Active | 451325765 | | | pectoris | | | [...] | K21.9 | | | Active | 045384159 | | | hageal | | | [...] | E66.01 | | | Active | 891863655 | | | obesity | | | | | | | | due to | | | | | | | | excess | | | | | | | | calories | | | | | | +---------+ + + +--------+ + + | Problem | Primary | M17.0 | | | Active | 919302315 | | | osteoarthr | | | | | | | | itis of | | | | | | | | both knees | | | | | | +---------+ + + +--------+ + + | Problem | Chronic | | G89.4 | | Active | 505660391 | | | pain | | | | | | | | syndrome | | | | | | +---------+ + + +--------+ + + | Problem | Essential | | I10 | | Active | 16131735 | | | hypertensi | | | | | | | | on | | | | | | +---------+ + + +--------+ + + | Problem | Type 2 | E11.9 | | | Active | 880465653 | | | diabetes | | | [...]
--- NOTE | 2017-03-17 14:24 | EKG ---
[facility] [address] [facility] [place] [address] Signed Normal sinus rhythm ST \T\ T wave abnormality, consider lateral ischemia Abnormal ECG When compared with ECG of 24-FEB-2017 00:21, No significant change was found Confirmed by ALEXANDRA WERNER MD ([id number]) on 03/17/2017 2:24:23 PM Electronically Signed By: ALEXANDRA WERNER MD 03/17/17 1424 PATIENT NAME: MAJOR GROVES Electrocardiogram DATE OF : 55 PHYSICIAN: ALEXANDRA WERNER MD REPORT #: [id number] REPORT IS CONFIDENTIAL AND NOT TO BE RELEASED WITHOUT AUTHORIZATION
[2017-05-09] MEDS ORDERED: CINSULIN PO (22:08)
[2017-05-09] MEDS ORDERED: ISOSORBIDE DINI30 MG PO (22:09)
[2017-05-09] MEDS ORDERED: ULTRAM50 MG PO (22:11)
[2017-05-09] MEDS ORDERED: IMITREX50 MG PO (23:22)
[2017-08-17] MEDS ORDERED: RANITIDINE HCL150 MG PO (03:26)
[2017-08-17] MEDS ORDERED: GEODON40 MG PO (03:28)
== END 2017-03-16 21:26 | disposition home or self-care (01) ==
LOC: ED 19:24
DX: R07.9 Chest pain, unspecified (principal); F41.9 Anxiety disorder, unspecified; G89.29 Other chronic pain; M54.9 Dorsalgia, unspecified; I10 Essential (primary) hypertension; E11.9 Type 2 diabetes mellitus without complications; E66.01 Morbid (severe) obesity due to excess calories; Z86.73 Personal history of transient ischemic attack (TIA), and cerebral infarction without residual deficits; Z98.51 Tubal ligation status; Z88.8 Allergy status to other drugs, medicaments and biological substances; Z88.5 Allergy status to narcotic agent; Z79.01 Long term (current) use of anticoagulants; Z79.899 Other long term (current) drug therapy; Z79.82 Long term (current) use of aspirin
CPT/HCPCS: 36415; 84484; 93005; 93010; 99284

== ENCOUNTER → 2017-05-09 | Emergency (ER) | payer MEDICARE, OTHER ==
[~2017-05-09] VITALS: Ht 147.3 cm; Wt 108.0 kg
[~2017-05-09] MED LIST changes: +CINSULIN PO; +GEODON40 MG PO; +ISOSORBIDE DINI30 MG PO; +RANITIDINE HCL150 MG PO; +ULTRAM50 MG PO
--- OUTSIDE RECORDS SUMMARY | 2017-05-09 22:12 | XMS ---
Demographics + + + | Address | [address] | | | [address] | | | [place] [address] | + + + | Preferred Language | Unknown | + + + | Marital Status | Unknown | + + + | Rastafarian Affiliation | Unknown | + + + | Race | Unknown | + + + | Ethnic Group | Unknown | + + + Author + + + | Author | [facility] | + + + | Organization | [facility] | + + + | Address | [address] | | | [place] [address] | + + + | Phone | | + + + Care Team Providers + + + + | Care Business Office Director Name | Role | Phone | + + + + Unavailable | Unavailable | + + + + PROBLEMS +---------+ + + +--------+ + + | Type | Condition | ICD9-CM | PER04-ZA | Onset | Condition | SNOMED | | | | Code | Code | Dates | Status | Code | +---------+ + + +--------+ + + | Problem | Migraine | G43.001 | | | Active | 40604734 | | | without | | | | | | | | aura and | | | | | | | | with | | | | | | | | status | | | | | | | | migrainosu | | | | | | | | s, not | | | | | | | | intractabl | | | | | | | | e | | | | | | +---------+ + + +--------+ + + | Problem | Hypertensi | I11.9 | | | Active | 46416616 | | | ve | | | | | | | | arterioscl | | | | | | | | erotic | | | | | | | | cardiovasc | | | | | | | | ular | | | | | | | | disease | | | | | | +---------+ + + +--------+ + + | Problem | Migraine | G43.101 | | | Active | 0315186 | | | with aura | | | | | | | | and with | | | | | | | | status | | | | | | | | migrainosu | | | | | | | | s, not | | | | | | | | intractabl | | | | | | | | e | | | | | | +---------+ + + +--------+ + + | Problem | Depression | F33.1 | | | Active | 23954146 | | | , major, | | | | | | | | recurrent, | | | | | | | | moderate | | | | | | +---------+ + + +--------+ + + | 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 | 85462494 | | | tiated | | | | | | | | somatoform | | | | | | | | disorder | | | | | | +---------+ + + +--------+ + + | 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 | 14747399 | | | lorrie | | | | | | +---------+ + + +--------+ + + | Problem | Angina | I20.9 | | | Active | 217716468 | | | pectoris | | | | | | +---------+ + + +--------+ + + | Problem | Other | | F60.89 | | Active | | | | specific | | | | | | | | personalit | | | | | | | | y | | | | | | | | disorders | | | | | | +---------+ + + +--------+ + + | Problem | Gastroesop | K21.9 | | | Active | 443153978 | | | hageal | | | | | | | | reflux | | | | | | | | disease | | | | | | | | without | | | | | | | | esophagiti | | | | | | | | s | | | | | | +---------+ + + +--------+ + + | Problem | Morbid | E66.01 | | | Active | 612600800 | | | obesity | | | | | | | | due to | | | | | | | | excess | | | | | | | | calories | | | | | | +---------+ + + +--------+ + + | Problem | Primary | M17.0 | | | Active | 951589984 | | | osteoarthr | | | | | | | | itis of | | | | | | | | both knees | | | | | | +---------+ + + +--------+ + + | Problem | Chronic | | G89.4 | | Active | 190034523 | | | pain | | | | | | | | syndrome | | | | | | +---------+ + + +--------+ + + | Problem | Essential | | I10 | | Active | 34721403 | | | hypertensi | | | | | | | | on | | | | | | +---------+ + + +--------+ + + | Problem | Type 2 | E11.9 | | | Active | 268167116 | | | diabetes | | | | | | | | mellitus | | | | | | | | without | | | | | | | | complicati | | | | | | | | on | | | | | | +---------+ + + +--------+ + + ALLERGIES + + + + +--------+ | Substance | Reaction | Event Type | Date | Status | + + + + +--------+ | Simvastatin | unknown | Drug Allergy | Mar, | Active | + + + + +--------+ | Polysorbate | unknown | Drug Allergy | Mar, | Active | | 80-Lecithin | | | | | + + + + +--------+ | Phenobarbital | unknown | Drug Allergy | Mar, | Active | + + + + +--------+ | Lisinopril | cough | Drug Allergy | Mar, | Active | + + + + +--------+ | Inapsine | unknown | Drug Allergy | Mar, | Active | + + + + +--------+ | Ditropan | unknown | Drug Allergy | Mar, | Active | + + + + +--------+ SOCIAL HISTORY No smoking Hx information available PLAN OF CARE + +---------+ | Activity | Details | + +---------+ +---+ | | +---+ + + + | Follow Up | as scheduled by nilson ELIAS Reason:null | + + + VITAL SIGNS + + + + | Height | 4 ft 10 in in | 2017-03-15 | + + + + | Weight | 238.1 lbs | 2017-03-15 | + + + + | BMI | 49.76 kg/m2 | 2017-03-15 | + + + + | Temperature | 97.8 degrees Fahrenheit | 2017-03-15 | + + + + | Heart Rate | 89 /min | 2017-03-15 | + + + + | Blood pressure systolic | 138 mm Hg | 2017-03-15 | + + + + | Blood pressure diastolic | 83 mm Hg | 2017-03-15 | + + + + MEDICATIONS + + + + + + + +--------+ | Medicati | Instruct | Dosage | Frequenc | Start | End Date | Duration | Status | | on | ions | | y | Date | | | | + + + + + + + +--------+ | Moisture | topicall | an | 24h | Sep, | 7 b, | | Active | | Barrier | y once | applicat | | 2017 | 2018 | | | | Cream . | daily | ion | | | | | | + + + + + + + +--------+ | Abilify | Orally | 1 tablet | 24h | | | | Active | | 2 MG | Once a | | | | | | | | | day | | | | | | | + + + + + + + +--------+ | Vitamin | Orally | 1 tablet | 24h | | | | Active | | C 500 MG | Once a | | | | | | | | | day | | | | | | | + + + + + + + +--------+ | Ventolin | Inhalati | 2-3 | | | | | Active | | HFA 108 | on | puffs as | | | | | | | (90 | every2-3 | needed | | | | | | | Base) | hrs | | | | | | | | MCG/ACT | | | | | | | | + + + + + + + +--------+ | Topirama | Orally | 1 tablet | | | | | Active | | te 200 | Once a | | | | | | | | MG | day qhs | | | | | | | + + + + + + + +--------+ | Allopuri | Orally | 1 tablet | 24h | | | | Active | | nol 300 | Once a | | | | | | | | MG | day | | | | | | | + + + + + + + +--------+ | Proprano | Orally | 1 | 24h | | | | Active | | lol HCl | Once a | capsule | | | | | | | ER 60 MG | day | | | | | | | + + + + + + + +--------+ | Prometha | | TAKE ONE | | | | | Active | | zine HCl | | TABLET | | | | | | | 25 MG | | BY MOUTH | | | | | | | | | EVERY 8 | | | | | | | | | HOURS | | | | | | | | | | | | | | | | | | NEEDED | | | | | | + + + + + + + +--------+ | Salsalat | Orally | 1 tablet | | | | | Active | | e 750 MG | Twice a | | | | | | | | | day prn | | | | | | | + + + + + + + +--------+ | BusPIRon | Orally | 1 tablet | 8h | | | | Active | | e HCl 10 | tid | | | | | | | | mg | | | | | | | | + + + + + + + +--------+ | Isosorbi | Orally | 1 tablet | 24h | 10 Mar, | | | Active | | de | Once a | | | 2017 | | | | | Mononitr | day | | | | | | | | ate ER | | | | | | | | | 30 MG | | | | | | | | + + + + + + + +--------+ | Prilosec | Orally | 1 | 24h | | | | Active | | 20 MG | Once a | capsule | | | | | | | | day | | | | | | | + + + + + + + +--------+ | Cymbalta | Orally | 1 | 24h | | | | Active | | 60 MG | Once a | capsule | | | | | | | | day | | | | | | | + + + + + + + +--------+ | Aspirin | Orally | 1 tablet | 24h | | | | Active | | 81 MG | Once a | | | | | | | | | day | | | | | | | + + + + + + + +--------+ | Losartan | Orally | 1 tablet | 24h | | | | Active | | | Once a | | | | | | | | Potassiu | day | | | | | | | | m 100 MG | | | | | | | | + + + + + + + +--------+ | Amlodipi | Orally | 1 tablet | 24h | | | | Active | | ne | Once a | | | | | | | | Besylate | day | | | | | | | | 2.5 MG | | | | | | | | + + + + + + + +--------+ | Cinnamon | Orally | 2 | 24h | | | | Active | | 500 MG | daily | tablets | | | | | | + + + + + + + +--------+ RESULTS + +--------+------+ + | Name | Result | Date | Reference Range | + +--------+------+ + | Urinalysis, Dip | | | | | (IH) | | | | + +--------+------+ + | Specific Mobile | 1.015 | | | + +--------+------+ + | pH | 6 | | | + +--------+------+ + | Leukocytes | neg | | | + +--------+------+ + | Nitrite, Urine | neg | | | + +--------+------+ + | Protein | neg | | | + +--------+------+ + | Glucose | norm | | | + +--------+------+ + | Ketones | neg | | | + +--------+------+ + | Urobilingen, | norm | | | | Semi-Qn | | | | + +--------+------+ + | Bilirubin | neg | | | + +--------+------+ + | Blood Hemoglobin | neg | | | | (BLD) | | | | + +--------+------+ + PROCEDURES + + + + + | Procedure | Date Ordered | Related Diagnosis | Body Site | + + + + + | LAB URINALYSIS (DIP | March 15, 2017 | | | | STICK ONLY | | | | + + + + + | Office Visit, Est | March 15, 2017 | | | | Pt., Level 3 | | | | + + + + + IMMUNIZATIONS No Known Immunizations"
--- OUTSIDE RECORDS SUMMARY | 2017-05-09 22:12 | XMS ---
Demographics + + + | Address | [address] | | | [address] | | | [place] [address] | + + + | Preferred Language | Unknown | + + + | Marital Status | Unknown | + + + | Bahai Affiliation | Unknown | + + + | Race | Unknown | + + + | Ethnic Group | Unknown | + + + Author + + + | Author | [facility] | + + + | Organization | [facility] | + + + | Address | [address] | | | [place] [address] | + + + | Phone | | + + + Care Team Providers + + + + | Care Physician Scribe Name | Role | Phone | + + + + Unavailable | Unavailable | + + + + PROBLEMS +---------+ + + +--------+ + + | Type | Condition | ICD9-CM | [id number] | Onset | Condition | SNOMED | | | | Code | Code | Dates | Status | Code | +---------+ + + +--------+ + + | Problem | Migraine | G43.001 | | | Active | 10077981 | | | without | | | [...] | I11.9 | | | Active | 89525267 | | | ve | | | [...] | G43.101 | | | Active | 1386164 | | | with aura | | [...] | F33.1 | | | Active | 58307863 | | | , major, | | | | | | | | recurrent, | | | | | | | | moderate | | | | | | +---------+ + + +--------+ + + | 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 | 69186651 | | | tiated | | | | | | | | somatoform | | | | | | | | disorder | | | | | | +---------+ + + +--------+ + + | 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 | 90011663 | | | lorrie | | | | | | +---------+ + + +--------+ + + | Problem | Angina | I20.9 | | | Active | 724291364 | | | pectoris | | | [...] | K21.9 | | | Active | 846173159 | | | hageal | | | [...] | E66.01 | | | Active | 453741041 | | | obesity | | | | | | | | due to | | | | | | | | excess | | | | | | | | calories | | | | | | +---------+ + + +--------+ + + | Problem | Primary | M17.0 | | | Active | 671783808 | | | osteoarthr | | | | | | | | itis of | | | | | | | | both knees | | | | | | +---------+ + + +--------+ + + | Problem | Chronic | | G89.4 | | Active | 031095516 | | | pain | | | | | | | | syndrome | | | | | | +---------+ + + +--------+ + + | Problem | Essential | | I10 | | Active | 64007209 | | | hypertensi | | | | | | | | on | | | | | | +---------+ + + +--------+ + + | Problem | Type 2 | E11.9 | | | Active | 966470659 | | | diabetes | | | | | | | | mellitus | | | | | | | | without | | | | | | | | complicati | | | | | | | | on | | | | | | +---------+ + + +--------+ + + ALLERGIES Unknown Allergies SOCIAL HISTORY No smoking Hx information available PLAN OF CARE VITAL SIGNS MEDICATIONS Unknown Medications RESULTS No Results PROCEDURES No Known procedures IMMUNIZATIONS No Known Immunizations"
--- OUTSIDE RECORDS SUMMARY | 2017-05-09 22:12 | XMS ---
Demographics + + + | Address | [address] | | | [address] | | | [place] [address] | + + + | Preferred Language | Unknown | + + + | Marital Status | Unknown | + + + | Orthodoxy Affiliation | Unknown | + + + | Race | Unknown | + + + | Ethnic Group | Unknown | + + + Author + + + | Author | [facility] | + + + | Organization | [facility] [address] | + + + | Address | [address] | | | [place] [address] | + + + | Phone | | + + + Care Team Providers + + + + | Care Superintendent Name | Role | Phone | + + + + Unavailable | Unavailable | + + + + PROBLEMS +---------+ + + +--------+ + + | Type | Condition | ICD9-CM | [id number] | Onset | Condition | SNOMED | | | | Code | Code | Dates | Status | Code | +---------+ + + +--------+ + + | 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 | 47764150 | | | lorrie | | | | | | +---------+ + + +--------+ + + | Problem | Other | | F60.89 | | Active | 36680158 | | | specific | | | | | | | | personalit | | | | | | | | y | | | | | | | | disorders | | | | | | +---------+ + + +--------+ + + | Problem | Gastroesop | K21.9 | | | Active | 245194228 | | | hageal | | | [...] + +--------+ + + | Problem | Viral | | B34.9 | | Active | 95831319 | | | illness | | | | | | +---------+ + + +--------+ + + | Problem | Cough | | R05 | | Active | 16540149 | +---------+ + + +--------+ + + | Problem | Depression | F33.1 | | | Active | 10244203 | | | , major, | | | | | | | | recurrent, | | | | | | | | moderate | | | | | | +---------+ + + +--------+ + + | 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 | 91950444 | | | tiated | | | | | | | | somatoform | | | | | | | | disorder | | | | | | +---------+ + + +--------+ + + | Problem | Pharyngiti | | J02.9 | | Active | 956473220 | | | s | | | | | | +---------+ + + +--------+ + + | Problem | Nausea | | R11.0 | | Active | 564034765 | +---------+ + + +--------+ + + | Problem | Morbid | E66.01 | | | Active | 070946029 | | | obesity | | | | | | | | due to | | | | | | | | excess | | | | | | | | calories | | | | | | +---------+ + + +--------+ + + | Problem | Primary | M17.0 | | | Active | 961071605 | | | osteoarthr | | | | | | | | itis of | | | | | | | | both knees | | | | | | +---------+ + + +--------+ + + | Problem | Essential | | I10 | | Active | 71431830 | | | hypertensi | | | | | | | | on | | | | | | +---------+ + + +--------+ + + | Problem | Migraine | G43.001 | | | Active | 54051326 | | | without | | | [...] | G43.101 | | | Active | 9708814 | | | with aura | | [...] | | G89.4 | | Active | 125206892 | | | pain | | | | | | | | syndrome | | | | | | +---------+ + + +--------+ + + | Problem | Hypertensi | I11.9 | | | Active | 73022709 | | | ve | | | [...] | E11.9 | | | Active | 296113961 | | | diabetes | | | | | | | | mellitus | | | | | | | | without | | | | | | | | complicati | | | | | | | | on | | | | | | +---------+ + + +--------+ + + | Problem | Angina | I20.9 | | | Active | 617258186 | | | pectoris | | | | | | +---------+ + + +--------+ + + ALLERGIES + + + + +--------+ | Substance | Reaction | Event Type | Date | Status | + + + + +--------+ | Simvastatin | unknown | Drug Allergy | Apr, | Active | + + + + +--------+ | Polysorbate | unknown | Drug Allergy | Apr, | Active | | 80-Lecithin | | | | | + + + + +--------+ | Phenobarbital | unknown | Drug Allergy | Apr, | Active | + + + + +--------+ | Lisinopril | cough | Drug Allergy | Apr, | Active | + + + + +--------+ | Inapsine | unknown | Drug Allergy | Apr, | Active | + + + + +--------+ | Ditropan | unknown | Drug Allergy | 27 Apr, 2017 | Active | + + + + +--------+ SOCIAL HISTORY No smoking Hx information available PLAN OF CARE + +---------+ | Activity | Details | + +---------+ +---+ | | +---+ + + + | Follow Up | prn Reason:null | + + + | Pending Test | Urinalysis, Complete | + + + | Pending Test | CBC With Differential/Platelet | + + + | Pending Test | Comp. Metabolic Panel (14) | + + + | Pending Test | Topiramate | + + + VITAL SIGNS + + + + | Height | 4 ft 10 in in | 2017-04-29 | + + + + | Weight | 240.8 lbs | 2017-04-29 | + + + + | BMI | 50.32 kg/m2 | 2017-04-29 | + + + + | Temperature | 98.0 degrees Fahrenheit | 2017-04-29 | + + + + | Heart Rate | 73 /min | 2017-04-29 | + + + + | Blood pressure systolic | 134 mm Hg | 2017-04-29 | + + + + | Blood pressure diastolic | 70 mm Hg | 2017-04-29 | + + + + MEDICATIONS + [...] | 1 tablet | 24h | 10 Nov, | | | Active | | de [...] | topicall | an | 24h | 13 Sep, | 7 Feb, | | Active | | Barrier | [...] + + +--------+ | Salsalat | Orally 3 | 1-2 | | | | 30 day | Active | | e 750 MG | times a | tablet | | | | | | | | day as | | | | | | | | | needed | | | | | | | | | not to | | | | | | | | | use more | | | | | | | | | than 6 | | | | | | | | | a day | | | | | | | + + + + + + + +--------+ RESULTS No Results PROCEDURES + + + + + | Procedure | Date Ordered | Related Diagnosis | Body Site | + + + + + | Office Visit, Est | Apr 29, 2017 | | | | Pt., Level 3 | | | | + + + + + | [facility] MED/CURRENT | Apr 29, 2017 | | | | MED MERGE | | | | + + + + + | DOC MEDS VERIFIED | Apr 29, 2017 | | | | W/PT OR RE | | | | + + + + + IMMUNIZATIONS No Known Immunizations"
--- OUTSIDE RECORDS SUMMARY | 2017-05-09 22:12 | XMS ---
Demographics + + + | Address | [address] | | | [address] | | | [place] [address] | + + + | Preferred Language | Unknown | + + + | Marital Status | Unknown | + + + | Catholic Affiliation | Unknown | + + + | Race | Unknown | + + + | Ethnic Group | Unknown | + + + Author + + + | Author | [facility] | + + + | Organization | [facility] | + + + | Address | [address] | | | [place] [address] | + + + | Phone | Unavailable | + + + Care Team Providers + + + + | Care Cashier Office Name | Role | Phone | + + + + Unavailable | Unavailable | + + + + PROBLEMS +---------+ + + +--------+ + + | Type | Condition | ICD9-CM | [id number] | Onset | Condition | SNOMED | | | | Code | Code | Dates | Status | Code | +---------+ + + +--------+ + + | Problem | Migraine | G43.001 | | | Active | 68143183 | | | without | | | [...] | I11.9 | | | Active | 24353510 | | | ve | | | [...] | G43.101 | | | Active | 8553344 | | | with aura | | [...] | F33.1 | | | Active | 68812430 | | | , major, | | | | | | | | recurrent, | | | | | | | | moderate | | | | | | +---------+ + + +--------+ + + | 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 | 54076338 | | | tiated | | | | | | | | somatoform | | | | | | | | disorder | | | | | | +---------+ + + +--------+ + + | 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 | 61170179 | | | lorrie | | | | | | +---------+ + + +--------+ + + | Problem | Angina | I20.9 | | | Active | 853671971 | | | pectoris | | | [...] | K21.9 | | | Active | 074947654 | | | hageal | | | [...] | E66.01 | | | Active | 233919146 | | | obesity | | | | | | | | due to | | | | | | | | excess | | | | | | | | calories | | | | | | +---------+ + + +--------+ + + | Problem | Primary | M17.0 | | | Active | [id number] | | | osteoarthr | | | | | | | | itis of | | | | | | | | both knees | | | | | | +---------+ + + +--------+ + + | Problem | Chronic | | G89.4 | | Active | [id number] | | | pain | | | | | | | | syndrome | | | | | | +---------+ + + +--------+ + + | Problem | Essential | | I10 | | Active | [id number] | | | hypertensi | | | | | | | | on | | | | | | +---------+ + + +--------+ + + | Problem | Type 2 | E11.9 | | | Active | [id number] | | | diabetes | | | [...]
--- OUTSIDE RECORDS SUMMARY | 2017-05-09 22:12 | XMS ---
Demographics + + + | Address | [address] | | | [address] | | | [place] [address] | + + + | Preferred Language | Unknown | + + + | Marital Status | Unknown | + + + | Pentecostalism Affiliation | Unknown | + + + | Race | Unknown | + + + | Ethnic Group | Unknown | + + + Author + + + | Author | [facility] | + + + | Organization | [facility] | + + + | Address | [address] | | | [place] [address] | + + + | Phone | | + + + Care Team Providers + + + + | Care Stain Wiper Name | Role | Phone | + + + + Unavailable | Unavailable | + + + + PROBLEMS +---------+ + + +--------+ + + | Type | Condition | ICD9-CM | [id number] | Onset | Condition | SNOMED | | | | Code | Code | Dates | Status | Code | +---------+ + + +--------+ + + | Problem | Migraine | G43.001 | | | Active | 57945970 | | | without | | | [...] | I11.9 | | | Active | 21590820 | | | ve | | | [...] | G43.101 | | | Active | 7288236 | | | with aura | | [...] | F33.1 | | | Active | 12005325 | | | , major, | | | | | | | | recurrent, | | | | | | | | moderate | | | | | | +---------+ + + +--------+ + + | 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 | 26087286 | | | tiated | | | | | | | | somatoform | | | | | | | | disorder | | | | | | +---------+ + + +--------+ + + | 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 | 05645516 | | | lorrie | | | | | | +---------+ + + +--------+ + + | Problem | Angina | I20.9 | | | Active | 271406619 | | | pectoris | | | [...] | K21.9 | | | Active | 492223273 | | | hageal | | | [...] | E66.01 | | | Active | 135237709 | | | obesity | | | | | | | | due to | | | | | | | | excess | | | | | | | | calories | | | | | | +---------+ + + +--------+ + + | Problem | Primary | M17.0 | | | Active | 385277679 | | | osteoarthr | | | | | | | | itis of | | | | | | | | both knees | | | | | | +---------+ + + +--------+ + + | Problem | Chronic | | G89.4 | | Active | 263101785 | | | pain | | | | | | | | syndrome | | | | | | +---------+ + + +--------+ + + | Problem | Essential | | I10 | | Active | 17250871 | | | hypertensi | | | | | | | | on | | | | | | +---------+ + + +--------+ + + | Problem | Type 2 | E11.9 | | | Active | 629248014 | | | diabetes | | | [...] + | Follow Up | as scheduled with PCP Reason:null | + + + VITAL SIGNS + + + + | Height | 4 ft 10 in in | 2017-03-07 | + + + + | Weight | 239.3 lbs | 2017-03-07 | + + + + | BMI | 50.01 kg/m2 | 2017-03-07 | + + + + | Temperature | 97.3 degrees Fahrenheit | 2017-03-07 | + + + + | Heart Rate | 68 /min | 2017-03-07 | + + + + | Blood pressure systolic | 132 mm Hg | 2017-03-07 | + + + + | Blood pressure diastolic | 68 mm Hg | 2017-03-07 | + + + + MEDICATIONS + [...] + | Office Visit, Est | March 07, 2017 | | | | Pt., Level 2 | | | | + + + + + IMMUNIZATIONS No Known Immunizations"
--- OUTSIDE RECORDS SUMMARY | 2017-05-09 22:12 | XMS ---
Demographics + + + | Address | [address] | | | [address] | | | [place] [address] | + + + | Preferred Language | Unknown | + + + | Marital Status | Unknown | + + + | Lutheran Affiliation | Unknown | + + + | Race | Unknown | + + + | Ethnic Group | Unknown | + + + Author + + + | Author | [facility] | + + + | Organization | [facility] | + + + | Address | [address] | | | [place] [address] | + + + | Phone | | + + + Care Team Providers + + + + | Care Shop Clerk Name | Role | Phone | + + + + Unavailable | Unavailable | + + + + PROBLEMS +---------+ + + +--------+ + + | Type | Condition | ICD9-CM | [id number]-KV | Onset | Condition | SNOMED | | | | Code | Code | Dates | Status | Code | +---------+ + + +--------+ + + | Problem | Migraine | G43.001 | | | Active | 64072958 | | | without | | | [...] | I11.9 | | | Active | 83118951 | | | ve | | | [...] | G43.101 | | | Active | 1312711 | | | with aura | | [...] | F33.1 | | | Active | 59017285 | | | , major, | | | | | | | | recurrent, | | | | | | | | moderate | | | | | | +---------+ + + +--------+ + + | 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 | 51300444 | | | tiated | | | | | | | | somatoform | | | | | | | | disorder | | | | | | +---------+ + + +--------+ + + | 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 | 53777209 | | | lorrie | | | | | | +---------+ + + +--------+ + + | Problem | Angina | I20.9 | | | Active | 766301480 | | | pectoris | | | [...] | K21.9 | | | Active | 657932239 | | | hageal | | | [...] | E66.01 | | | Active | 834567219 | | | obesity | | | | | | | | due to | | | | | | | | excess | | | | | | | | calories | | | | | | +---------+ + + +--------+ + + | Problem | Primary | M17.0 | | | Active | 839227446 | | | osteoarthr | | | | | | | | itis of | | | | | | | | both knees | | | | | | +---------+ + + +--------+ + + | Problem | Chronic | | G89.4 | | Active | 665385628 | | | pain | | | | | | | | syndrome | | | | | | +---------+ + + +--------+ + + | Problem | Essential | | I10 | | Active | 40805908 | | | hypertensi | | | | | | | | on | | | | | | +---------+ + + +--------+ + + | Problem | Type 2 | E11.9 | | | Active | 010454339 | | | diabetes | | | [...]
--- OUTSIDE RECORDS SUMMARY | 2017-05-09 22:12 | XMS ---
Demographics + + + | Address | [address] | | | [address] | | | [place] [address] | + + + | Preferred Language | Unknown | + + + | Marital Status | Unknown | + + + | Taoist Affiliation | Unknown | + + + | Race | Unknown | + + + | Ethnic Group | Unknown | + + + Author + + + | Author | [facility] | + + + | Organization | [facility] | + + + | Address | [address] | | | [place] [phone] | + + + | Phone | | + + + Care Team Providers + + + + | Care Flight Technician Name | Role | Phone | + + + + Unavailable | Unavailable | + + + + PROBLEMS +---------+ + + +--------+ + + | Type | Condition | ICD9-CM | DBR29-MC | Onset | Condition | SNOMED | | | | Code | Code | Dates | Status | Code | +---------+ + + +--------+ + + | Problem | Migraine | G43.001 | | | Active | 56584376 | | | without | | | [...] | I11.9 | | | Active | 49682114 | | | ve | | | [...] | G43.101 | | | Active | 7097118 | | | with aura | | [...] | F33.1 | | | Active | 14549562 | | | , major, | | | | | | | | recurrent, | | | | | | | | moderate | | | | | | +---------+ + + +--------+ + + | 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 | 20372024 | | | tiated | | | | | | | | somatoform | | | | | | | | disorder | | | | | | +---------+ + + +--------+ + + | 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 | 74001450 | | | lorrie | | | | | | +---------+ + + +--------+ + + | Problem | Angina | I20.9 | | | Active | 280311763 | | | pectoris | | | [...] | K21.9 | | | Active | 011061856 | | | hageal | | | [...] | E66.01 | | | Active | 875421026 | | | obesity | | | | | | | | due to | | | | | | | | excess | | | | | | | | calories | | | | | | +---------+ + + +--------+ + + | Problem | Primary | M17.0 | | | Active | 446276973 | | | osteoarthr | | | | | | | | itis of | | | | | | | | both knees | | | | | | +---------+ + + +--------+ + + | Problem | Chronic | | G89.4 | | Active | 670734528 | | | pain | | | | | | | | syndrome | | | | | | +---------+ + + +--------+ + + | Problem | Essential | | I10 | | Active | 66218424 | | | hypertensi | | | | | | | | on | | | | | | +---------+ + + +--------+ + + | Problem | Type 2 | E11.9 | | | Active | 349771748 | | | diabetes | | | [...]
--- OUTSIDE RECORDS SUMMARY | 2017-05-09 22:12 | XMS ---
Demographics + + + | Address | [address] | | | [address] | | | [place] [address] | + + + | Preferred Language | Unknown | + + + | Marital Status | Unknown | + + + | Confucianist Affiliation | Unknown | + + + | Race | Unknown | + + + | Ethnic Group | Unknown | + + + Author + + + | Author | [facility] | + + + | Organization | [facility] | + + + | Address | [address] | | | [place] [phone] | + + + | Phone | | + + + Care Team Providers + + + + | Care Cinetechnician Name | Role | Phone | + + + + Unavailable | Unavailable | + + + + PROBLEMS +---------+ + + +--------+ + + | Type | Condition | ICD9-CM | RUR14-IV | Onset | Condition | SNOMED | | | | Code | Code | Dates | Status | Code | +---------+ + + +--------+ + + | Problem | Migraine | G43.001 | | | Active | 46876666 | | | without | | | [...] | I11.9 | | | Active | 18076060 | | | ve | | | [...] | G43.101 | | | Active | 2674790 | | | with aura | | [...] | F33.1 | | | Active | 86967195 | | | , major, | | | | | | | | recurrent, | | | | | | | | moderate | | | | | | +---------+ + + +--------+ + + | 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 | 60002723 | | | tiated | | | | | | | | somatoform | | | | | | | | disorder | | | | | | +---------+ + + +--------+ + + | 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 | 09504229 | | | lorrie | | | | | | +---------+ + + +--------+ + + | Problem | Angina | I20.9 | | | Active | 275711446 | | | pectoris | | | [...] | K21.9 | | | Active | 281572462 | | | hageal | | | [...] | E66.01 | | | Active | 820486190 | | | obesity | | | | | | | | due to | | | | | | | | excess | | | | | | | | calories | | | | | | +---------+ + + +--------+ + + | Problem | Primary | M17.0 | | | Active | 098308594 | | | osteoarthr | | | | | | | | itis of | | | | | | | | both knees | | | | | | +---------+ + + +--------+ + + | Problem | Chronic | | G89.4 | | Active | 767324808 | | | pain | | | | | | | | syndrome | | | | | | +---------+ + + +--------+ + + | Problem | Essential | | I10 | | Active | 07128865 | | | hypertensi | | | | | | | | on | | | | | | +---------+ + + +--------+ + + | Problem | Type 2 | E11.9 | | | Active | 042847828 | | | diabetes | | | [...]
--- OUTSIDE RECORDS SUMMARY | 2017-05-09 22:12 | XMS ---
Demographics + + + | Address | [address] | | | [address] | | | [place] [address] | + + + | Preferred Language | Unknown | + + + | Marital Status | Unknown | + + + | Yazidi Affiliation | Unknown | + + + | Race | Unknown | + + + | Ethnic Group | Unknown | + + + Author + + + | Author | [facility] | + + + | Organization | [facility] | + + + | Address | [address] | | | [place] [phone] | + + + | Phone | | + + + Care Team Providers + + + + | Care Business Intelligence Analyst Name | Role | Phone | + + + + Unavailable | Unavailable | + + + + PROBLEMS +---------+ + + +--------+ + + | Type | Condition | ICD9-CM | KKC32-CV | Onset | Condition | SNOMED | | | | Code | Code | Dates | Status | Code | +---------+ + + +--------+ + + | Problem | Migraine | G43.001 | | | Active | 76259435 | | | without | | | [...] | I11.9 | | | Active | 97077643 | | | ve | | | [...] | G43.101 | | | Active | 6271580 | | | with aura | | [...] | F33.1 | | | Active | 98078967 | | | , major, | | | | | | | | recurrent, | | | | | | | | moderate | | | | | | +---------+ + + +--------+ + + | 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 | 00539536 | | | tiated | | | | | | | | somatoform | | | | | | | | disorder | | | | | | +---------+ + + +--------+ + + | 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 | 07688168 | | | lorrie | | | | | | +---------+ + + +--------+ + + | Problem | Angina | I20.9 | | | Active | 293037355 | | | pectoris | | | [...] | K21.9 | | | Active | 766916207 | | | hageal | | | [...] | E66.01 | | | Active | 024608073 | | | obesity | | | | | | | | due to | | | | | | | | excess | | | | | | | | calories | | | | | | +---------+ + + +--------+ + + | Problem | Primary | M17.0 | | | Active | 788225729 | | | osteoarthr | | | | | | | | itis of | | | | | | | | both knees | | | | | | +---------+ + + +--------+ + + | Problem | Chronic | | G89.4 | | Active | 447994388 | | | pain | | | | | | | | syndrome | | | | | | +---------+ + + +--------+ + + | Problem | Essential | | I10 | | Active | 62932365 | | | hypertensi | | | | | | | | on | | | | | | +---------+ + + +--------+ + + | Problem | Type 2 | E11.9 | | | Active | 455364470 | | | diabetes | | | [...]
--- OUTSIDE RECORDS SUMMARY | 2017-05-09 22:12 | XMS ---
Demographics + + + | Address | [address] | | | [address] | | | [place] [address] | + + + | Preferred Language | Unknown | + + + | Marital Status | Unknown | + + + | Muslim Affiliation | Unknown | + + + | Race | Unknown | + + + | Ethnic Group | Unknown | + + + Author + + + | Author | [facility] | + + + | Organization | [facility] | + + + | Address | [address] | | | [place] [address] | + + + | Phone | | + + + Care Team Providers + + + + | Care Pain Management Specialist Name | Role | Phone | + + + + Unavailable | Unavailable | + + + + PROBLEMS +---------+ + + +--------+ + + | Type | Condition | ICD9-CM | WAZ55-CN | Onset | Condition | SNOMED | | | | Code | Code | Dates | Status | Code | +---------+ + + +--------+ + + | 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 | 39946430 | | | lorrie | | | | | | +---------+ + + +--------+ + + | Problem | Other | | F60.89 | | Active | 39114215 | | | specific | | | | | | | | personalit | | | | | | | | y | | | | | | | | disorders | | | | | | +---------+ + + +--------+ + + | Problem | Gastroesop | K21.9 | | | Active | 880324159 | | | hageal | | | [...] | | B34.9 | | Active | 63697863 | | | illness | | | | | | +---------+ + + +--------+ + + | Problem | Cough | | R05 | | Active | 58681602 | +---------+ + + +--------+ + + | Problem | Depression | F33.1 | | | Active | 53990693 | | | , major, | | | | | | | | recurrent, | | | | | | | | moderate | | | | | | +---------+ + + +--------+ + + | 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 | 37784207 | | | tiated | | | | | | | | somatoform | | | | | | | | disorder | | | | | | +---------+ + + +--------+ + + | Problem | Pharyngiti | | J02.9 | | Active | 834422462 | | | s | | | | | | +---------+ + + +--------+ + + | Problem | Nausea | | R11.0 | | Active | 540441553 | +---------+ + + +--------+ + + | Problem | Morbid | E66.01 | | | Active | 639375833 | | | obesity | | | | | | | | due to | | | | | | | | excess | | | | | | | | calories | | | | | | +---------+ + + +--------+ + + | Problem | Primary | M17.0 | | | Active | 970953197 | | | osteoarthr | | | | | | | | itis of | | | | | | | | both knees | | | | | | +---------+ + + +--------+ + + | Problem | Essential | | I10 | | Active | 00956207 | | | hypertensi | | | | | | | | on | | | | | | +---------+ + + +--------+ + + | Problem | Migraine | G43.001 | | | Active | 47923936 | | | without | | | [...] | G43.101 | | | Active | 7616867 | | | with aura | | [...] | | G89.4 | | Active | 155664980 | | | pain | | | | | | | | syndrome | | | | | | +---------+ + + +--------+ + + | Problem | Hypertensi | I11.9 | | | Active | 20615299 | | | ve | | | [...] | E11.9 | | | Active | 194626308 | | | diabetes | | | | | | | | mellitus | | | | | | | | without | | | | | | | | complicati | | | | | | | | on | | | | | | +---------+ + + +--------+ + + | Problem | Angina | I20.9 | | | Active | 253827887 | | | pectoris | | | | | | +---------+ + + +--------+ + + ALLERGIES Unknown Allergies SOCIAL HISTORY No smoking Hx information available PLAN OF CARE VITAL SIGNS MEDICATIONS Unknown Medications RESULTS No Results PROCEDURES No Known procedures IMMUNIZATIONS No Known Immunizations"
--- OUTSIDE RECORDS SUMMARY | 2017-05-09 22:12 | XMS ---
Demographics + + + | Address | [address] | | | [address] | | | [place] [address] | + + + | Preferred Language | Unknown | + + + | Marital Status | Unknown | + + + | Oriental Orthodox Affiliation | Unknown | + + + | Race | Unknown | + + + | Ethnic Group | Unknown | + + + Author + + + | Author | [facility] | + + + | Organization | [facility] | + + + | Address | [address] | | | [place] [address] | + + + | Phone | | + + + Care Team Providers + + + + | Care Fire Management Specialist Name | Role | Phone | + + + + Unavailable | Unavailable | + + + + PROBLEMS +---------+ + + +--------+ + + | Type | Condition | ICD9-CM | HMK47-XD | Onset | Condition | SNOMED | | | | Code | Code | Dates | Status | Code | +---------+ + + +--------+ + + | Problem | Migraine | G43.001 | | | Active | 39072203 | | | without | | | [...] | I11.9 | | | Active | 30900549 | | | ve | | | [...] | G43.101 | | | Active | 6074297 | | | with aura | | [...] | F33.1 | | | Active | 66621979 | | | , major, | | | | | | | | recurrent, | | | | | | | | moderate | | | | | | +---------+ + + +--------+ + + | 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 | 03890777 | | | tiated | | | | | | | | somatoform | | | | | | | | disorder | | | | | | +---------+ + + +--------+ + + | 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 | 13514536 | | | lorrie | | | | | | +---------+ + + +--------+ + + | Problem | Angina | I20.9 | | | Active | 830459059 | | | pectoris | | | [...] | K21.9 | | | Active | 353967126 | | | hageal | | | [...] | E66.01 | | | Active | 339818159 | | | obesity | | | | | | | | due to | | | | | | | | excess | | | | | | | | calories | | | | | | +---------+ + + +--------+ + + | Problem | Primary | M17.0 | | | Active | 794816441 | | | osteoarthr | | | | | | | | itis of | | | | | | | | both knees | | | | | | +---------+ + + +--------+ + + | Problem | Chronic | | G89.4 | | Active | 626147599 | | | pain | | | | | | | | syndrome | | | | | | +---------+ + + +--------+ + + | Problem | Essential | | I10 | | Active | 86246977 | | | hypertensi | | | | | | | | on | | | | | | +---------+ + + +--------+ + + | Problem | Type 2 | E11.9 | | | Active | 559740588 | | | diabetes | | | [...]
--- OUTSIDE RECORDS SUMMARY | 2017-05-09 22:12 | XMS ---
Demographics + + + | Address | [address] | | | [address] | | | [place] [address] | + + + | Preferred Language | Unknown | + + + | Marital Status | Unknown | + + + | Restoration Affiliation | Unknown | + + + | Race | Unknown | + + + | Ethnic Group | Unknown | + + + Author + + + | Author | [facility] | + + + | Organization | [facility] | + + + | Address | [address] | | | [place] [address] | + + + | Phone | | + + + Care Team Providers + + + + | Care Database Administration Project Manager Name | Role | Phone | + + + + Unavailable | Unavailable | + + + + PROBLEMS +---------+ + + +--------+ + + | Type | Condition | ICD9-CM | XWL02-EC | Onset | Condition | SNOMED | | | | Code | Code | Dates | Status | Code | +---------+ + + +--------+ + + | Problem | Migraine | G43.001 | | | Active | 18078510 | | | without | | | [...] | I11.9 | | | Active | 09910596 | | | ve | | | [...] | G43.101 | | | Active | 2054375 | | | with aura | | [...] | F33.1 | | | Active | 15588548 | | | , major, | | | | | | | | recurrent, | | | | | | | | moderate | | | | | | +---------+ + + +--------+ + + | 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 | 97518206 | | | tiated | | | | | | | | somatoform | | | | | | | | disorder | | | | | | +---------+ + + +--------+ + + | 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 | 07787688 | | | lorrie | | | | | | +---------+ + + +--------+ + + | Problem | Angina | I20.9 | | | Active | 445862652 | | | pectoris | | | [...] | K21.9 | | | Active | 629451313 | | | hageal | | | [...] | E66.01 | | | Active | 724481059 | | | obesity | | | | | | | | due to | | | | | | | | excess | | | | | | | | calories | | | | | | +---------+ + + +--------+ + + | Problem | Primary | M17.0 | | | Active | 034022439 | | | osteoarthr | | | | | | | | itis of | | | | | | | | both knees | | | | | | +---------+ + + +--------+ + + | Problem | Chronic | | G89.4 | | Active | 430193194 | | | pain | | | | | | | | syndrome | | | | | | +---------+ + + +--------+ + + | Problem | Essential | | I10 | | Active | 59659183 | | | hypertensi | | | | | | | | on | | | | | | +---------+ + + +--------+ + + | Problem | Type 2 | E11.9 | | | Active | 993401157 | | | diabetes | | | [...]
--- OUTSIDE RECORDS SUMMARY | 2017-05-09 22:12 | XMS ---
Demographics + + + | Address | [address] | | | [address] | | | [place] [address] | + + + | Preferred Language | Unknown | + + + | Marital Status | Unknown | + + + | Tenriism Affiliation | Unknown | + + + | Race | Unknown | + + + | Ethnic Group | Unknown | + + + Author + + + | Author | [facility] | + + + | Organization | [facility] | + + + | Address | [address] | | | [place] [address] | + + + | Phone | | + + + Care Team Providers + + + + | Care Welder Assistant Name | Role | Phone | + + + + Unavailable | Unavailable | + + + + PROBLEMS +---------+ + + +--------+ + + | Type | Condition | ICD9-CM | DIO49-UQ | Onset | Condition | SNOMED | | | | Code | Code | Dates | Status | Code | +---------+ + + +--------+ + + | 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 | 62985335 | | | lorrie | | | [...] | K21.9 | | | Active | 829863111 | | | hageal | | | [...] | | B34.9 | | Active | 87602177 | | | illness | | | | | | +---------+ + + +--------+ + + | Problem | Cough | | R05 | | Active | 17530924 | +---------+ + + +--------+ + + | Problem | Depression | F33.1 | | | Active | 02423856 | | | , major, | | | | | | | | recurrent, | | | | | | | | moderate | | | | | | +---------+ + + +--------+ + + | 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 | 42360621 | | | tiated | | | | | | | | somatoform | | | | | | | | disorder | | | | | | +---------+ + + +--------+ + + | Problem | Pharyngiti | | J02.9 | | Active | 792599947 | | | s | | | | | | +---------+ + + +--------+ + + | Problem | Nausea | | R11.0 | | Active | 614012373 | +---------+ + + +--------+ + + | Problem | Morbid | E66.01 | | | Active | 307227268 | | | obesity | | | | | | | | due to | | | | | | | | excess | | | | | | | | calories | | | | | | +---------+ + + +--------+ + + | Problem | Primary | M17.0 | | | Active | 607774070 | | | osteoarthr | | | | | | | | itis of | | | | | | | | both knees | | | | | | +---------+ + + +--------+ + + | Problem | Essential | | I10 | | Active | 02339852 | | | hypertensi | | | | | | | | on | | | | | | +---------+ + + +--------+ + + | Problem | Migraine | G43.001 | | | Active | 89005300 | | | without | | | [...] | G43.101 | | | Active | 7865997 | | | with aura | | [...] | | G89.4 | | Active | 086802654 | | | pain | | | | | | | | syndrome | | | | | | +---------+ + + +--------+ + + | Problem | Hypertensi | I11.9 | | | Active | 26609360 | | | ve | | | [...] | E11.9 | | | Active | 599718743 | | | diabetes | | | | | | | | mellitus | | | | | | | | without | | | | | | | | complicati | | | | | | | | on | | | | | | +---------+ + + +--------+ + + | Problem | Angina | I20.9 | | | Active | 083455164 | | | pectoris | | | [...] Ditropan | unknown | Drug Allergy | Apr, | Active | + + + + +--------+ SOCIAL HISTORY No smoking Hx information available PLAN OF CARE + +---------+ | Activity | Details | + +---------+ +---+ | | +---+ + + + | Follow Up | prn Reason:null | + + + VITAL SIGNS + + + + | Height | 4 ft 10 in in | 2017-04-07 | + + + + | Weight | 234 lbs | 2017-04-07 | + + + + | BMI | 48.90 kg/m2 | 2017-04-07 | + + + + | Temperature | 98.5 degrees Fahrenheit | 2017-04-07 | + + + + | Heart Rate | 81 /min | 2017-04-07 | + + + + MEDICATIONS + [...] + + + + + +--------+ | Sudafed | Orally | 1 tablet | 6h | 05 Aug, | | 10 | Active | | 30 MG | every 6 | as | | 2017 | | day(s) | | | | hrs | needed | | | | | | + [...] + + + + + +--------+ | Tessalon | Orally | 1 | 8h | | | 10 | Active | | Perles | Three | capsule | | | | day(s) | | | 100 mg | times a | as | | | | | | | | day | needed | | | | | | + [...] an | 24h | Sep, | 7 Feb, | | Active [...] + + + + + +--------+ | Zofran | Orally | 1 tablet | 8h | 05 Aug, | | 5 day(s) | Active | | ODT 4 mg | every 8 | on the | | 2016 | | | | | | hrs | tongue | | | | | | | | | and | | | | | | | | | allow to | | | | | | | | | | | | | | | | | | dissolve | | | | | | + [...] + | Office Visit, Est | Apr 07, 2017 | | | | Pt., Level 3 | | | | + + + + + IMMUNIZATIONS No Known Immunizations"
--- OUTSIDE RECORDS SUMMARY | 2017-05-09 22:12 | XMS ---
Demographics + + + | Address | [address] | | | [address] | | | [place] [address] | + + + | Preferred Language | Unknown | + + + | Marital Status | Unknown | + + + | Adventism Affiliation | Unknown | + + + | Race | Unknown | + + + | Ethnic Group | Unknown | + + + Author + + + | Author | [facility] | + + + | Organization | [facility] | + + + | Address | [address] | | | [place] [address] | + + + | Phone | | + + + Care Team Providers + + + + | Care Petal Shaper Hand Name | Role | Phone | + + + + Unavailable | Unavailable | + + + + PROBLEMS +---------+ + + +--------+ + + | Type | Condition | ICD9-CM | VBE67-SN | Onset | Condition | SNOMED | | | | Code | Code | Dates | Status | Code | +---------+ + + +--------+ + + | Problem | Migraine | G43.001 | | | Active | 12661615 | | | without | | | [...] | I11.9 | | | Active | 08687900 | | | ve | | | [...] | G43.101 | | | Active | 9145337 | | | with aura | | [...] | F33.1 | | | Active | 82935207 | | | , major, | | | | | | | | recurrent, | | | | | | | | moderate | | | | | | +---------+ + + +--------+ + + | 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 | 11239657 | | | tiated | | | | | | | | somatoform | | | | | | | | disorder | | | | | | +---------+ + + +--------+ + + | 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 | 39848330 | | | lorrie | | | | | | +---------+ + + +--------+ + + | Problem | Angina | I20.9 | | | Active | 265859522 | | | pectoris | | | [...] | K21.9 | | | Active | 054793804 | | | hageal | | | [...] | E66.01 | | | Active | 552684267 | | | obesity | | | | | | | | due to | | | | | | | | excess | | | | | | | | calories | | | | | | +---------+ + + +--------+ + + | Problem | Primary | M17.0 | | | Active | 682672645 | | | osteoarthr | | | | | | | | itis of | | | | | | | | both knees | | | | | | +---------+ + + +--------+ + + | Problem | Chronic | | G89.4 | | Active | 078768439 | | | pain | | | | | | | | syndrome | | | | | | +---------+ + + +--------+ + + | Problem | Essential | | I10 | | Active | 90615218 | | | hypertensi | | | | | | | | on | | | | | | +---------+ + + +--------+ + + | Problem | Type 2 | E11.9 | | | Active | 756826148 | | | diabetes | | | [...]
== END ==
LOC: ED 21:58
DX: G43.909 Migraine, unspecified, not intractable, without status migrainosus (principal); I10 Essential (primary) hypertension; E11.9 Type 2 diabetes mellitus without complications; E66.01 Morbid (severe) obesity due to excess calories; I25.10 Atherosclerotic heart disease of native coronary artery without angina pectoris; F32.9 Major depressive disorder, single episode, unspecified; K21.9 Gastro-esophageal reflux disease without esophagitis; Z86.73 Personal history of transient ischemic attack (TIA), and cerebral infarction without residual deficits; Z90.89 Acquired absence of other organs; Z90.710 Acquired absence of both cervix and uterus; Z88.8 Allergy status to other drugs, medicaments and biological substances; Z88.6 Allergy status to analgesic agent; Z88.1 Allergy status to other antibiotic agents; Z79.899 Other long term (current) drug therapy; Z79.82 Long term (current) use of aspirin
CPT/HCPCS: 96372; 99283; J3030

== ENCOUNTER 2017-06-09 10:46 | Emergency (ER) | payer MEDICARE, OTHER ==
[~2017-06-09] VITALS: Ht 147.3 cm; Wt 108.0 kg
--- OUTSIDE RECORDS SUMMARY | ~2017-06-09 | XMS ---
Demographics + + + | Address | [address] | | | [address] | | | [place] [address] | + + + | Preferred Language | Unknown | + + + | Marital Status | Unknown | + + + | Hinduism Affiliation | Unknown | + + + | Race | Unknown | + + + | Ethnic Group | Unknown | + + + Author + + + | Author | [facility] | + + + | Organization | [facility] | + + + | Address | [address] | | | [place] [address] | + + + | Phone | Unavailable | + + + Care Team Providers + + + + | Care Associate Financial Planner Name | Role | Phone | + + + + Unavailable | Unavailable | + + + + PROBLEMS +---------+ + + +--------+ + + | Type | Condition | ICD9-CM | EOA16-QR | Onset | Condition | SNOMED | | | | Code | Code | Dates | Status | Code | +---------+ + + +--------+ + + | 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 | 25322739 | | | lorrie | | | | | | +---------+ + + +--------+ + + | Problem | Other | | F60.89 | | Active | 61743750 | | | specific | | | | | | | | personalit | | | | | | | | y | | | | | | | | disorders | | | | | | +---------+ + + +--------+ + + | Problem | Gastroesop | K21.9 | | | Active | 894805460 | | | hageal | | | [...] | | B34.9 | | Active | 83384018 | | | illness | | | | | | +---------+ + + +--------+ + + | Problem | Cough | | R05 | | Active | 27435697 | +---------+ + + +--------+ + + | Problem | Depression | F33.1 | | | Active | 50151229 | | | , major, | | | | | | | | recurrent, | | | | | | | | moderate | | | | | | +---------+ + + +--------+ + + | 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 | 18152188 | | | tiated | | | | | | | | somatoform | | | | | | | | disorder | | | | | | +---------+ + + +--------+ + + | Problem | Pharyngiti | | J02.9 | | Active | 556662687 | | | s | | | | | | +---------+ + + +--------+ + + | Problem | Nausea | | R11.0 | | Active | 313564314 | +---------+ + + +--------+ + + | Problem | Morbid | E66.01 | | | Active | 830819188 | | | obesity | | | | | | | | due to | | | | | | | | excess | | | | | | | | calories | | | | | | +---------+ + + +--------+ + + | Problem | Primary | M17.0 | | | Active | 388921486 | | | osteoarthr | | | | | | | | itis of | | | | | | | | both knees | | | | | | +---------+ + + +--------+ + + | Problem | Essential | | I10 | | Active | 76232652 | | | hypertensi | | | | | | | | on | | | | | | +---------+ + + +--------+ + + | Problem | Migraine | G43.001 | | | Active | 24002933 | | | without | | | [...] | G43.101 | | | Active | 9522298 | | | with aura | | [...] | | G89.4 | | Active | 258170754 | | | pain | | | | | | | | syndrome | | | | | | +---------+ + + +--------+ + + | Problem | Hypertensi | I11.9 | | | Active | 10072623 | | | ve | | | [...] | E11.9 | | | Active | 337201773 | | | diabetes | | | | | | | | mellitus | | | | | | | | without | | | | | | | | complicati | | | | | | | | on | | | | | | +---------+ + + +--------+ + + | Problem | Angina | I20.9 | | | Active | 080115533 | | | pectoris | | | | | | +---------+ + + +--------+ + + ALLERGIES No Information SOCIAL HISTORY Never Assessed PLAN OF CARE VITAL SIGNS MEDICATIONS Unknown Medications RESULTS No Results PROCEDURES No Known procedures IMMUNIZATIONS No Known Immunizations MEDICAL (GENERAL) HISTORY + + + + | Type | Description | Date | + + + + | Medical History | Somatoform | | | | disorders/Personality | | | | disorder/Depression/Anxiety | | | | - Mental Health Provider | | | | [facility] Cassidy | | | | Dashawn | | + + + + | Medical History | Fibromyalgia | | + + + + | Medical History | Hypertension | | + + + + | Medical History | DM | | + + + + | Medical History | Chronic Headaches/ | | | | Migraines on Topomax | | + + + + | Medical History | Urinary Incontinence, | | | | stress - uses Poise | | | | consistantly. | | + + + + | Medical History | GERD | | + + + + | Medical History | Primary Hyperparathyroid - | | | | Ca 10.3H 03/03/16, CrCL | | | | 76ml/min urine Ca 351 | | | | (100-250mg/24hr) 02/23/16, | | | | Vit D level 45 02/22/16, Ca | | | | 10.3, PTH 79H 12/31/15. DEXA | | | | femoral T-score 0.5 01/05/16 | | + + + + | Medical History | Essential Tremer - | | | | neurology consult Dr Robertson | | | | [place]: most likely, cannot | | | | rule out some degree of | | | | Parkinsonism secondary to | | | | termite control representative Abilify use. | | + + + + | Medical History | Vitamin D deficiency | | + + + + | Medical History | Hyperurecemia | | + + + + | Medical History | Arthritis knees | | + + + + | Medical History | Angina Pectoris - 04/17/16 | | | | Cardiolite Cardiac Stress | | | | test normal | | + + + + | Medical History | Morbid Obesity s/p Cristal | | | | Fundoplication 2004 | | + + + + | Medical History | hx/o Seizures - neurology | | | | consult 11/2015 Dr Robertson | | | | [place]: doubt pt has ongoing | | | | seizures at this point. 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) | | + + + + | Medical History | POLST filled pt is DNR | | | | 02/16/17 | | + + + + | Surgical History | Neurologsusanne Cage | 11/2015 | | | Rafael GUTIERREZ [phone] | | + + + + | Surgical History | Mental Health Provider | | | | [facility] | | + + + + | Surgical History | Colonoscopy | 1999 | + + + + | Surgical History | FRANSISCO/BSO | age 37 | + + + + | Surgical History | Cristal Fundoplication | 2003 | + + + + | Surgical History | Echocardiogram - | 06/24/14 | | | hyperdynamic L ventricle, | | | | gr I diastolic dysfunction, | | | | [facility] | | | | Cardiology | | + + + + | Surgical History | Mammogram | 06/07/16 12/05/16 | + + + + | Surgical History | DEXA femoral T-score 0.5 | 01/05/16 | + + + + | Surgical History | Cardiolite Cardiac Stress | 04/17/16 | | | Test - normal | | + + + + | Hospitalization History | [facility] re: Headache | 02/11/15 | + + + + | Hospitalization History | [facility] re: anxiety | 11/06/15 | + + + + | Hospitalization History | [facility] re: migraine | 11/22/15 | + + + + | Hospitalization History | [facility] re: BLAS | 11/25/15 | + + + + | Hospitalization History | [facility] re: chest pain | 03/22/16 | + + + + | Hospitalization History | [facility] re: chest pain | 04/17/16 | | | transfered to [facility] | | | | [facility] | | + + + + | Hospitalization History | [facility] re: chest pain | 04/17-04/18/16 | + + + + | Hospitalization History | [facility] re: chest pain | 04/26/16 | + + + + | Hospitalization History | [facility] re: epigastric pain | 05/01/16 | + + + + | Hospitalization History | [facility] re: candidiasis | 07/29/16 | | | under breast | | + + + + | Hospitalization History | [facility] re: chest pain, back | 09/04/16 | | | pain | | + + + + | Hospitalization History | [facility] re: chest pain | 10/19/16 | + + + + | Hospitalization History | [facility] re: chest pain | 10/22/16 | + + + + | Hospitalization History | [facility] re: chest pain [facility] | 11/06/16 | | | ER re: not being able to | | | | walk on L leg | | + + + + | Hospitalization History | [facility] re: knee pain | 11/08/16 | + + + + | Hospitalization History | [facility] re: weakness | 12/22/16 | + + + + | Hospitalization History | [facility] re: chest pain | 02/24/17 | + + + + | Hospitalization History | [facility] re: flank pain | 03/15/17 | + + + + | Hospitalization History | [facility] re: back pain | 03/16/17 | + + + +"
[~2017-06-09 10:46] MED LIST changes: -GEODON40 MG PO; -RANITIDINE HCL150 MG PO
[2017-08-17] MEDS ORDERED: RANITIDINE HCL150 MG PO (03:26)
[2017-08-17] MEDS ORDERED: GEODON40 MG PO (03:28)
== END 2017-06-09 11:09 | disposition home or self-care (01) ==
LOC: ED 10:46
DX: R25.1 Tremor, unspecified (principal); Z00.8 Encounter for other general examination

== ENCOUNTER 2017-07-04 20:59 | Emergency (ER) | payer MEDICARE, OTHER ==
[~2017-07-04] VITALS: Ht 147.3 cm; Wt 106.1 kg
[2017-08-17] MEDS ORDERED: RANITIDINE HCL150 MG PO (03:26)
[2017-08-17] MEDS ORDERED: GEODON40 MG PO (03:28)
== END 2017-07-04 23:57 | disposition home or self-care (01) ==
LOC: ED 20:59
DX: F22 Delusional disorders (principal); I11.9 Hypertensive heart disease without heart failure; E11.9 Type 2 diabetes mellitus without complications; G43.809 Other migraine, not intractable, without status migrainosus; E66.01 Morbid (severe) obesity due to excess calories; F32.9 Major depressive disorder, single episode, unspecified; K21.9 Gastro-esophageal reflux disease without esophagitis; Z86.73 Personal history of transient ischemic attack (TIA), and cerebral infarction without residual deficits; Z90.89 Acquired absence of other organs; Z90.710 Acquired absence of both cervix and uterus; Z98.51 Tubal ligation status; Z98.890 Other specified postprocedural states; Z88.8 Allergy status to other drugs, medicaments and biological substances
CPT/HCPCS: 99282

== ENCOUNTER → 2017-08-17 | Emergency (ER) | payer MEDICARE, OTHER ==
[~2017-08-17] VITALS: Ht 147.3 cm; Wt 106.1 kg
[~2017-08-17] MED LIST changes: +GEODON40 MG PO; +RANITIDINE HCL150 MG PO
--- NOTE | 2017-08-17 12:40 | EKG ---
[facility] [address] [place] [address] Signed Sinus rhythm with 1st degree AV block ST \T\ T wave abnormality, consider lateral ischemia Abnormal ECG When compared with ECG of 16-MAR-2017 19:56, No significant change was found Confirmed by ALEXANDRA WERNER MD ([id number]) on 08/17/2017 12:40:16 PM Electronically Signed By: ALEXANDRA WERNER MD 08/17/17 1240 PATIENT NAME: GROVESMAJOR RAMIRES JEAN Electrocardiogram DATE OF : 55 PHYSICIAN: ALEXANDRA WERNER MD REPORT #: [id number] REPORT IS CONFIDENTIAL AND NOT TO BE RELEASED WITHOUT AUTHORIZATION
== END ==
LOC: ED 03:17
DX: G43.909 Migraine, unspecified, not intractable, without status migrainosus (principal); I10 Essential (primary) hypertension; E11.9 Type 2 diabetes mellitus without complications; E66.01 Morbid (severe) obesity due to excess calories; Z79.899 Other long term (current) drug therapy; Z90.710 Acquired absence of both cervix and uterus; Z98.51 Tubal ligation status; Z89.419 Acquired absence of unspecified great toe; Z98.890 Other specified postprocedural states; Z88.6 Allergy status to analgesic agent; Z88.5 Allergy status to narcotic agent; Z88.8 Allergy status to other drugs, medicaments and biological substances; Z79.82 Long term (current) use of aspirin
CPT/HCPCS: 81001; 93005; 93010; 96361; 96374; 96375; 99283; J1200; J2765; J7030

== ENCOUNTER 2017-09-25 20:32 | Emergency (ER) | payer MEDICARE, OTHER ==
[~2017-09-25] VITALS: Ht 147.3 cm; Wt 106.1 kg
--- OUTSIDE RECORDS SUMMARY | 2017-09-25 22:17 | XMS | Clinical Summary ---
Demographics + + + | Address | [address] | | | [place] [address] | + + + | Home Phone | | + + + | Preferred Language | Unknown | + + + | Marital Status | | + + + | Religion Affiliation | Unknown | + + + | Race | White | + + + | Ethnic Group | Not or | + + + Author + + + | Author | [facility] | + + + | Organization | [facility] | + + + | Address | Unknown | + + + | Phone | Unavailable | + + + Support +------+ + + + + | Name | Relationship | Address | Phone | +------+ + + + + ECON | [address] | | [place] [address] | +------+ + + + + Care Team Providers + +------+-------+ | Care Cloth Painter Name | Role | Phone | + +------+-------+ | Jason Tucker DO | PP | tel | + +------+-------+ Source Comments [facility] is fully live on both [facility] Allergies + + + + + + | Active Allergy | Reactions | Severity | Noted | Comments | | | | | Date | | + + + + + + | Droperidol | | | 02/20/20 | | | | | | 06 | | + + + + + + | Phenobarbital | | | 02/20/20 | | | | | | 06 | | + + + + + + | Acetaminophen | | | 08/21/20 | liver enzymes go | | | | | 06 | out of whack she | | | | | | can't take it at all | + + + + + + Current Medications + + +-------+---------+------+------+-------+ | Prescription | Sig. | Disp. | Refills | Star | End | Statu | | | | | | t | Date | s | | | | | | Date | | | + + +-------+---------+------+------+-------+ | Oxycodone HCl | take 1 tablet (10 | | | | | Activ | | (OXYCONTIN) 10 mg | mg) by oral route | | | | | e | | Oral Tablet | every 12 hours prn | | | | | | | Sustained Release 12 | | | | | | | | hr | | | | | | | + + +-------+---------+------+------+-------+ | potassium chloride | Take 20 mEq by mouth | | | / | | Activ | | SR (KLOR-CON M20) | two times daily. | | | 2 | | e | | 20 mEq Oral Tablet, | | | | 11 | | | | ER | | | | | | | | Particles/Crystals | | | | | | | + + +-------+---------+------+------+-------+ | furosemide 20 mg | Take 20 mg by mouth | | | 03/03 | | Activ | | Oral Tablet | two times daily. | | | 2 | | e | | | | | | 11 | | | + + +-------+---------+------+------+-------+ | omeprazole 20 mg | Take 20 mg by mouth | | | 03/03 | | Activ | | Oral Capsule, | two times daily. | | | 2 | | e | | Delayed | | | | 11 | | | | Release(E.C.) | | | | | | | + + +-------+---------+------+------+-------+ | isosorbide | Take 30 mg by mouth | | | | | Activ | | mononitrate CR 30 mg | once daily. | | | | | e | | Oral Tablet | | | | | | | | Extended Release 24 | | | | | | | | hr | | | | | | | + + +-------+---------+------+------+-------+ | ranitidine 150 mg | Take 150 mg by mouth | | | | | Activ | | Oral Tablet | two times daily. | | | | | e | + + +-------+---------+------+------+-------+ | docusate sodium | Take 100 mg by mouth | | | 07/1 | | Activ | | 100 mg Oral Capsule | once daily. Take 2 | | | 2/20 | | e | | | caps by mouth daily | | | 11 | | | + + +-------+---------+------+------+-------+ | propranolol ER 60 | Take 60 mg by mouth | | | | | Activ | | mg Oral | once daily. | | | | | e | | Capsule,Extended | | | | | | | | Release 24 hr | | | | | | | + + +-------+---------+------+------+-------+ | DULoxetine | Take 60 mg by mouth | | | | | Activ | | (CYMBALTA) 60 mg | once daily. | | | | | e | | Oral Capsule, | | | | | | | | Delayed | | | | | | | | Release(E.C.) | | | | | | | + + +-------+---------+------+------+-------+ | chlorhexidine 0.12 | Take 15 mL by mouth | | | | | Activ | | % Mucous Membrane | two times daily. | | | | | e | | Mouthwash | Swish undiluted oral | | | | | | | | rinse around in | | | | | | | | mouth for 30 | | | | | | | | seconds, then spit. | | | | | | | | Do not swallow. | | | | | | | | After breakfast and | | | | | | | | once before bed. | | | | | | + + +-------+---------+------+------+-------+ | PROPYLENE | Instill in eye. | | | | | Activ | | GLYCOL/PEG 400 | Keep at bedside | | | | | e | | (SYSTANE OPHT) | | | | | | | + + +-------+---------+------+------+-------+ | ammonium lactate | Apply to affected | | | 07/ | | Activ | | 12 % Topical Cream | area once daily. | | | 2/20 | | e | | | Apply to feet daily. | | | 11 | | | | | | | | | | | + + +-------+---------+------+------+-------+ | ergocalciferol | Take 50,000 Units by | | | | | Activ | | (VITAMIN D) 50,000 | mouth every seven | | | | | e | | unit Oral Capsule | days. Take 1 cap | | | | | | | | twice weekly | | | | | | + + +-------+---------+------+------+-------+ | traZODone 50 mg | Take 50 mg by mouth | | | | | Activ | | Oral Tablet | once daily at | | | | | e | | | bedtime. | | | | | | + + +-------+---------+------+------+-------+ | nystatin (NYSTOP) | Apply to affected | | | | | Activ | | 100,000 unit/g | area two times | | | | | e | | Topical Powder | daily. Apply to | | | | | | | | candidal lesions | | | | | | | | until lesions have | | | | | | | | healed. For fungal | | | | | | | | infection of the | | | | | | | | feet cause by | | | | | | | | Breana species, the | | | | | | | | powder should be | | | | | | | | dusted freely on the | | | | | | | | feet as well as in | | | | | | | | shoes and socks. | | | | | | + + +-------+---------+------+------+-------+ | zolpidem 10 mg | Take 10 mg by mouth | | | | | Activ | | Oral Tablet | once daily at | | | | | e | | | bedtime as needed. | | | | | | + + +-------+---------+------+------+-------+ | Selenium | Apply to affected | | | 03/03 | | Activ | | Sulfide-Menthol | area as needed. | | | 2/20 | | e | | 1-0.5 % Topical | | | | 11 | | | | Shampoo | | | | | | | + + +-------+---------+------+------+-------+ | valsartan (DIOVAN) | Take 160 mg by mouth | | | | | Activ | | 160 mg Oral Tablet | once daily. | | | | | e | + + +-------+---------+------+------+-------+ | pregabalin | Take by mouth two | | | | | Activ | | (LYRICA) 75 mg Oral | times daily. Max: | | | | | e | | Capsule | 600 mg/day | | | | | | + + +-------+---------+------+------+-------+ | Urea 20 % Topical | Apply to affected | | | 03/03 | | Activ | | Cream | area once daily. | | | 10/23 | | e | | | Apply to B/L feet | | | 11 | | | | | every day for 90 | | | | | | | | days | | | | | | + + +-------+---------+------+------+-------+ | | Apply to affected | | | | | Activ | | clotrimazole-betamet | area two times | | | | | e | | hasone 1-0.05 % | daily. Apply to | | | | | | | Topical Cream | affected area. | | | | | | + + +-------+---------+------+------+-------+ | bismuth | Take by mouth every | | | | | Activ | | subsalicylate (PINK | thirty minutes as | | | | | e | | BISMUTH) 262 mg/15 | needed. Max of 8 | | | | | | | mL Oral Suspension | doses per 24 hours | | | | | | + + +-------+---------+------+------+-------+ | SUMATRIPTAN | Take by mouth two | | | 07/1 | | Activ | | SUCCINATE ORAL | times daily. | | | 2/20 | | e | | | | | | 11 | | | + + +-------+---------+------+------+-------+ | ibuprofen 600 mg | Take 600 mg by mouth | | | | | Activ | | Oral Tablet | every six hours as | | | | | e | | | needed. | | | | | | + + +-------+---------+------+------+-------+ | | Take 1 Tab by mouth | | | | | Activ | | HYDROcodone-acetamin | every four hours as | | | | | e | | ophen 5-325 mg Oral | needed. Not to | | | | | | | Tablet | exceed 12 tablets | | | | | | | | per any 24 hour | | | | | | | | period. (Not to | | | | | | | | exceed 4000 mg of | | | | | | | | acetaminophen from | | | | | | | | all products per 24 | | | | | | | | hour period.) | | | | | | + + +-------+---------+------+------+-------+ | CYCLOBENZAPRINE | Take by mouth three | | | 03/03 | | Activ | | HCL (CYCLOBENZAPRINE | times daily. | | | 10/23 | | e | | ORAL) | | | | 11 | | | + + +-------+---------+------+------+-------+ Active Problems + + + | Problem | Noted Date | + + + | Tobacco dependence syndrome | 02/15/2007 | + + + | Morbid obesity (HCC) | 02/15/2007 | + + + | Abnormality of gait | 02/15/2007 | + + + + + | Overview: Movement disorder clinic at [facility]: no neurological | | gait disorder | + + + + + | Pain in Joint, Left Shoulder Region | 02/15/2007 | + + + | Leg Pain Right | 02/15/2007 | + + + + + | Overview: Possible refer pain from facet arthropathy need to | | assess for radiculopathy or spinal stenosisSecondary myofascial | | pain Abnormal gait over compensationDeactivated and | | deconditionedI need to review of the lumbar spine - MRI | |I need to review of the lumbar spine - MRI | + + + + + | Low back pain | 02/15/2007 | + + + + + | Overview: No myelopathy or neuropathy | | Possible radicular pain into right LE | | Diffuse myofascial pain in the axial spine and buttocks | | I need to review imaging - MRI | + + + + + | Elijah hypesthesia (Left) | 02/15/2007 | + + + + + | Overview: Hx of TIAs possibly from cerebral vascular changes | | or "white plaque" seen on brain MRICould be radicular | + + + + + | Fibromyalgia | 02/15/2007 | + + + | Generalized osteoarthritis of multiple sites | 02/15/2007 | + + + + + | Overview: ICD10 | + + + + + | Obstructive sleep apnea | 02/15/2007 | + + + + + | Overview: CPAP not well tolerated | + + + + + | At risk for falling | 02/15/2007 | + + + | Neck pain | 02/15/2007 | + + + + + | Overview: No myelopathy or neuropathy | | Possible radicular pain into left UE | | Facetogenic vs discogenic | | Diffuse myofascial pain in the axial spine and trapezius | | I need to review imaging - MRI | + + + + + | Depression | 02/15/2007 | + + + | Diabetes Mellitus Type II, Diet Controlled with elevated | 02/15/2007 | | Creatinine(1.2) in 2005; No neuropathy | | + + + | Tremor, essential | 02/19/2006 | + + + + + | Overview: Not responded to antiparkinsons medications | + + Family History + + +------+ + | Medical History | Relation | Name | Comments | + + +------+ + | Arthritis | Mother | | | + + +------+ + + +------+--------+ + | Relation | Name | Status | Comments | + +------+--------+ + | Mother | | | | + +------+--------+ + Social History + +-------+ +--------+------+ | Tobacco Use | Types | Packs/Day | Years | Date | | | | | Used | | + +-------+ +--------+------+ | Never Smoker | | | | | + +-------+ +--------+------+ + +---+---+---+ | Smokeless Tobacco: | | | | | Never Used | | | | + +---+---+---+ + + +---------+ + | Alcohol Use | Drinks/We | oz/Week | Comments | | | ek | | | + + +---------+ + | No | | | | + + +---------+ + + + + | Sex Assigned at | Date Recorded | | | | + + + | Not on file | | + + + Last Filed Vital Signs + + + + | Vital Sign | Reading | Time Taken | + + + + | Blood Pressure | 111/62 | 03/14/2011 12:05 PM PDT | + + + + | Pulse | 67 | 03/14/2011 12:05 PM PDT | + + + + | Temperature | 36.8 C (98.2 F) | 02/15/2007 1:42 PM PDT | + + + + | Respiratory Rate | 12 | 03/14/2011 12:05 PM PDT | + + + + | Oxygen Saturation | 94% | 02/15/2007 1:42 PM PDT | + + + + | Inhaled Oxygen | - | - | | Concentration | | | + + + + | Weight | 126.1 kg (278 lb) | 03/14/2011 12:05 PM PDT | + + + + | Height | 147.3 cm (4' 10") | 03/14/2011 12:05 PM PDT | + + + + | Body Mass Index | 58.1 | 03/14/2011 12:05 PM PDT | + + + + Plan of Treatment + + + + + | Health Maintenance | Due Date | Last Done | Comments | + + + + + | INFLUENZA VACCINE | | | | | (FLU SHOT) | 7 | | | + + + + + Results Not on filefrom Last 3 Months
--- OUTSIDE RECORDS SUMMARY | 2017-09-25 22:18 | XMS | Clinical Summary ---
Demographics + + + | Address | [address] | | | [place] [address] | + + + | Home Phone [...] [address] | | [place] [address] | +------+ + + + + Care Team Providers + +------+-------+ | Care Advertising Associate Name | Role | Phone | + +------+-------+ | Jason Tucker DO | PP | tel | + +------+-------+ Source Comments [facility] is fully live on both [facility] Allergies + + + + + + [...] + | Overview: Movement disorder clinic at [facility]: no neurological | | gait disorder | [...]
== END 2017-09-25 22:18 | disposition home or self-care (01) ==
LOC: ED 20:32
PROC: 0T9B70Z Drainage of Bladder with Drainage Device, Via Natural or Artificial Opening (ICD-10-PCS; principal; 2017-09-25)
DX: E11.65 Type 2 diabetes mellitus with hyperglycemia (principal); I10 Essential (primary) hypertension; G43.909 Migraine, unspecified, not intractable, without status migrainosus; F32.9 Major depressive disorder, single episode, unspecified; K21.9 Gastro-esophageal reflux disease without esophagitis; E66.01 Morbid (severe) obesity due to excess calories; Z88.8 Allergy status to other drugs, medicaments and biological substances; Z79.899 Other long term (current) drug therapy
CPT/HCPCS: 51701; 80053; 81001; 83036; 83690; 85025; 99283

== ENCOUNTER 2018-01-06 09:05 | Emergency (ER) | payer MEDICARE, OTHER ==
[~2018-01-06] VITALS: Ht 147.3 cm; Wt 106.1 kg
[2018-01-06] MEDS ORDERED: BUTRANS1 EAC1 TD (09:34)
[2018-01-06] MEDS ORDERED: IMITREX25 MG PO (09:54)
--- OUTSIDE RECORDS SUMMARY | 2018-01-06 10:10 | XMS | Encounter Summary ---
Demographics + + + | Address | [address] | | | [place] [address] | + + + | Home Phone | | + + + | Preferred Language | Unknown | + + + | Marital Status | Single | + + + | Rastafarian Affiliation | Unknown | + + + | Race | White | + + + | Ethnic Group | Not or | + + + Author + + + | Author | [facility] | + + + | Organization | [facility] | + + + | Address | Unknown | + + + | Phone | Unavailable | + + + Support + + +---------+ + | Name | Relationship | Address | Phone | + + +---------+ + | DENNY ALAN | ECON | Unknown | | + + +---------+ + Care Team Providers + +------+ + | Care Food Demonstrator Name | Role | Phone | + +------+ + | Patti Dillon DO | PCP | | + +------+ + Reason for Visit +--------+ + | Reason | Comments | +--------+ + | Tremor | Worsening tremors | +--------+ + Encounter Details +--------+ + + + + | Date | Type | Department | Care Team | Description | +--------+ + + + + | 10/24/ | Telephone | Neurology at | [place], [place], | Tremor (Worsening | | 2018 | | [facility] & | [address] | tremors) | | | | Healing [address] | [address] | | | | | [address] Mail Code: | [place], [place] | | | | | [facility] | [address] | | | | | Health and Healing, | [phone] | | | | | 8th floor [place], | | | | | | [place] [address] | | | | | | [phone] | | | +--------+ + + + + Social History + +-------+ +--------+------+ | [...] on file | | + + + as of this encounter Plan of Treatment +--------+---------+ + + + | Date | Type | Specialty | Care Team | Description | +--------+---------+ + + + | 01/09/ | Office | Neurology | Xuan Hayden MD | | | 2017 | Visit | | [address] | | | | | | [place] | | | | | | [address] | | | | | | [phone] | | | | | | | | +--------+---------+ + + + as of this encounter Visit Diagnoses Not on filein this encounter"
--- OUTSIDE RECORDS SUMMARY | 2018-01-06 10:10 | XMS | Encounter Summary ---
Demographics + + + | Address | [address] | | | [place] [address] | + + + | Home Phone | | + + + | Preferred Language | Unknown | + + + | Marital Status | Single | + + + | Advent Affiliation | Unknown | + + + | Race | White | + + + | Ethnic Group | Not or | + + + Author + + + | Author | [facility] | + + + | Organization | [facility] | + + + | Address | Unknown | + + + | Phone | Unavailable | + + + Support + + +---------+ + | Name | Relationship | Address | Phone | + + +---------+ + | DENNY ALAN | ECON | Unknown | | + + +---------+ + Care Team Providers + +------+ + | Care Satellite Tv Technician Installer Name | Role | Phone | + +------+ + | Patti Dillon DO | PCP | | + +------+ + Reason for Visit + + + | Reason | Comments | + + + | New patient | | | consultation | | + + + Intake Referral (Routine) + +--------+ + + + + | Status | Reason | Specialty | Diagnoses / | Referred By | Referred To | | | | | Procedures | Contact | Contact | + +--------+ + + + + | New Request | | Neurology | Diagnoses | Nelly | Chari, | | | | | Tremor, | Jen, | MD Sid | | | | | unspecified | Patti So, | [address] | | | | | - Tremor, | DO [facility] | [address] | | | | | unspecified | [address] | [address] [place], | | | | | | Family | [place] | | | | | | Health [address] | [address] | | | | | | [address] | Phone: | | | | | | [address] | [phone] | | | | | | [place], | Fax: | | | | | | [place] [address] | [phone] | | | | | | Phone: | | | | | | | [phone] | | | | | | | Fax: | | | | | | | [phone] | | + +--------+ + + + + Encounter Details +--------+---------+ + + + | Date | Type | Department | Care Team | Description | +--------+---------+ + + + | 12/10/ | Office | Neurology at | Sid Marcelino, | Tremor, essential | | 2018 | Visit | [facility] & | MD [address] | (Primary Dx) | | | | Healing [address] | [address] | | | | | [address] Mail Code: | [place], [place] | | | | | [facility] | [address] | | | | | Health and Healing, | [phone] | | | | | 8th floor [place], | | | | | | [place] [address] | | | | | | [phone] | | | +--------+---------+ + + + Social History + +-------+ [...] + + + as of this encounter Last Filed Vital Signs + + + + | Vital Sign | Reading | Time Taken | + + + + | Blood Pressure | 90/68 | 12/10/2017 3:47 PM PDT | + + + + | Pulse | 189 | 12/10/2017 3:47 PM PDT | + + + + | Temperature | - | - | + + + + | Respiratory Rate | - | - | + + + + | Oxygen Saturation | - | - | + + + + | Inhaled Oxygen | - | - | | Concentration | | | + + + + | Weight | 105.7 kg (233 lb) | 12/10/2017 3:44 PM PDT | + + + + | Height | - | - | + + + + | Body Mass Index | 48.7 | 12/10/2017 3:44 PM PDT | + + + + in this encounter Progress Notes Sid Marcelino MD - 12/10/2017 3:40 PM PDTFormatting of this note may be different from the original. CC: Re-evaluation for tremor HPI: Jessie Groves is a 62 y.o. female on whom we were consulted for tremor re-evaluation . She was last seen in our clinic in 2010. She had not come to our clinic due to travel dist [facility]. Tremor is in the head, arms, and legs. It can be reduced from what she has today. She does feel it is interfering with daily activities. Her tremor has occasionally gotten to the [facility] where she needed assistance to help her walk. In one example, she was in a meeting and the shaking started worse than usual. She was unable to get up - she needed two people to help her get into the car. At her home, they had to get a walker to get her back into her house. She felt like she had a seizure and she felt like someone had 'taken her insides and shook u p her insides'. It took her two days to feel better from that episode. These episodes are leonard ppening more frequently lately. She has been working on walking and feels like the rehab is working better. She has been off of using the walker and her scooter any more. She dose stil l need to use a walker when she is in unfamiliar surroundings on or uneven ground. Her memory is not doing well. ROS: Reviewed and negative except as noted above. She said she has lost weight and overall is feeling much better. She is now able to ambulate most of time where in the past, she was requiring a scooter for long walks such as visiting a big building like our clinic building . PMHx: (reviewed and updated) OA COPD DM 2 HTN Migraines FIbromyalgia Seizures S/P Tubal, T&A, Hernia repair, Cristal fundiplication, and toe bone repair Current Outpatient Prescriptions Medication Sig albuterol 90 mcg/actuation inhalation HFA aerosol inhaler Inhale by mouth. allopurinol 300 mg oral tablet Take by mouth. amLODIPine 2.5 mg oral tablet Take by mouth. ARIPiprazole 2 mg oral tablet Take by mouth. No current facility-administered medications for this visit. Allergies Allergen Reactions Inapsine [Droperidol] Phenobarbital Tylenol [Acetaminophen] liver enzymes go out of whack she can't take it at all FHx: Non-contributory Social History Social History Marital status: Single Spouse name: N/A Number of children: N/A Years of education: N/A Occupational History Not on file. Social History Main Topics Smoking status: Never Smoker Smokeless tobacco: Never Used Alcohol use No Drug use: No Sexual activity: Not on file Other Topics Concern Not on file Social History Narrative Family History: The patient reports that her mother had pains but was unable to elaborate. Her daughter has epilepsy. She denies any history of Parkinson's or essential tremor in her family, although her parents both young. Not very frequent caffeine. She is on a caffeine-free diet. She mainly drinks Squirt and us es caffeine-free tea. She made a switch 2.5 years ago. Physical Examination: Vital Signs: BP 90/68 | Pulse 189 | Wt 105.7 kg (233 lb) | BMI 48.7 kg/(m^2) General exam: Ms. Groves is in no apparent distress. There are no carotid bruits. The heart is regular in rate and rhythm. Neurological Examination: Mental status examination: Ms. Groves was alert and oriented x3. Speech was not dysarth clint. Comprehension was normal. Language was otherwise normal. Cranial nerves: Cranial nerves II-XII revealedextra-ocular movements were full with normal saccades. Facial sensation was intact to pinprick and light touch. No facial droop was no josh. Hearing was normal bilaterally. Palate elevated to midline. Sternocleidomastoid and Trapezius were 5/5 bilaterally. Tongue protruded to midline. Strength testing revealed 5/5 strength bilaterally in the arms and legs. Reflexes were 0-1 + and symmetric throughout with toes downgoing bilaterally. Pinprick and vibratory sensatio n was decreased in the distal legs which did have some edema. She had bilateral tremor in both arms which had a primary component of a postural/intention tremor, but did have some mild resting components. It did also have a truncal and neck comp onent as well which was in the same frequency as the arm tremor. It was a bit suggestible, b ut was not distractible. It did not really have an entrainment. No bradykinesia noted in bot h arms and both legs. No increase in tone noted throughout. Impression: 1) Tremor Discussion: Ms. Groves has tremors. It is unclear how much these tremors are being influ enced by her medications. She had tremor which resolved in the past with discontinuation of neuroleptic. I think it is possible that this time the recurrence of tremor may be related t o the aripiprazole. There does still seem to be a potential functional overlay to her tremor s. Will communicate this with her mental health team to see if aripiprazole can be discontinue d or an alternative agent can be tried. She can also have an anticholinergic added (like Cog entin) to see if this may help with her tremors as well. If there is no help with removal of aripirazole and/or addition of anticholinergic, then tremor-suppressing medications can be tried including Lyrica (which she has been on before) or gabapentin, and we could also poten augie try primidone, clonazepam, or topiramate. She said her mental health is provided through [employer] with a fax number She was interested in potentially following up via telehealth through the [facility] . I will discuss this possibility with our office staff. Recommendations: 1) Consider discontinuing aripiprazole 2) Consider additional medications as above if needed 3) Return to my clinic through (telehealth if possible) in 6-9 months I spent 40 minutes with the patient. Greater than 50% of the time was spent counseling the patient regarding differential diagnosis and disease progression. in this encounter Plan of Treatment +--------+---------+ + + + | Date | Type | Specialty | Care Team | Description | +--------+---------+ + + + | 01/09/ | Office | Neurology | Xuan Hayden MD | | | 2017 | Visit | | [address] | | | | | | [place] | | | | | | [address] | | | | | | [phone] | | | | | | | | +--------+---------+ + + + as of this encounter Visit Diagnoses + + | Diagnosis | + + | Tremor, essential - Primary | + + | Essential and other specified forms of tremor | + +"
--- OUTSIDE RECORDS SUMMARY | 2018-01-06 10:10 | XMS | Clinical Summary ---
Demographics + + + | Address | [address] | | | [place] [address] | + + + | Home Phone | | + + + | Preferred Language | Unknown | + + + | Marital Status | | + + + | Zoroastrian Affiliation | Unknown | + + + | Race | Unknown | + + + | Ethnic Group | Unknown | + + + Author + + + | Author | [facility] | + + + | Organization | [facility] | + + + | Address | Unknown | + + + | Phone | Unavailable | + + + Support + + +---------+ + | Name | Relationship | Address | Phone | + + +---------+ + | Urszula Solano | ECON | Unknown | | + + +---------+ + | Breanna Ford | ECON | Unknown | | | Assisted Living | | | | + + +---------+ + | Rex Vieyra | ECON | Unknown | | | [place] | | | | + + +---------+ + Care Team Providers + +------+ + | Care Optical Glass Etcher Name | Role | Phone | + +------+ + | Patti Mcneil DO | PP | | + +------+ + Allergies Not on File Current Medications Not on file Active Problems Not on file Social History + +-------+ +--------+------+ | Tobacco Use | Types | Packs/Day | Years | Date | | | | | Used | | + +-------+ +--------+------+ | Never Assessed | | | | | + +-------+ +--------+------+ + + + | Sex Assigned at | Date Recorded | | | | + + + | Not on file | | + + + Plan of Treatment Not on file Results Not on filefrom Last 3 Months Insurance + +--------+ +------+-------+ + | Payer | Benefi | Subscriber | Type | Phone | Address | | | t Plan | ID | | | | | | / | | | | | | | Group | | | | | + +--------+ +------+-------+ + | MEDICARE | MEDICA | xxxxxxxxxx | | | [address] | | | RE | | | | [place] [address] | | | IP-OP | | | | | + +--------+ +------+-------+ + | MEDICAID | [place] | xxxxxxxx | | | [address] | | | | | | | [place], [place] | | | [place] | | | | [phone] | | | [place] | | | | | | | OTHER | | | | | + +--------+ +------+-------+ + + +--------+ +--------+ + + | Guarantor Name | Accoun | Relation to | Date | Phone | Billing Address | | | t Type | Patient | of | | | | | | | | | | + +--------+ +--------+ + + | MAJOR GROVES | Person | Self [birth year] | Home: | [address] | | | al/Fam | | 1955 | [phone] [place] | | | [place] | | [phone] | + +--------+ +--------+ + +"
--- OUTSIDE RECORDS SUMMARY | 2018-01-06 10:10 | XMS | Encounter Summary ---
Demographics + + + | Address | [address] | | | [place] [address] | + + + | Home Phone | | + + + | Preferred Language | Unknown | + + + | Marital Status | Single | + + + | Islam Affiliation | Unknown | + + + | Race | White | + + + | Ethnic Group | Not or | + + + Author + + + | Author | [facility] | + + + | Organization | [facility] | + + + | Address | Unknown | + + + | Phone | Unavailable | + + + Support + + +---------+ + | Name | Relationship | Address | Phone | + + +---------+ + | DENNY ALAN | ECON | Unknown | | + + +---------+ + Care Team Providers + +------+ + | Care Plunger Machine Operator Name | Role | Phone | + +------+ + | Patti Dillon DO | PCP | | + +------+ + Encounter Details +--------+ + + + + | Date | Type | Department | Care Team | Description | +--------+ + + + + | 12/19/ | Document-Sc | UNKNOWN DEPARTMENT | Unknown . | | | 2018 | anned | [address] [facility] | | | | | | [facility] | | | | | | [place], [place] | | | | | | [address] | | | +--------+ + + + [...] [place] | | | | | | [address] | | | | | | [phone] | | | | | | | | +--------+---------+ + + + as of this encounter Visit Diagnoses Not on filein this encounter"
--- OUTSIDE RECORDS SUMMARY | 2018-01-06 10:10 | XMS | Clinical Summary ---
Demographics + + + | Address | [address] | | | [place] [address] | + + + | Home Phone | | + + + | Preferred Language | Unknown | + + + | Marital Status | | + + + | Mu-Ism Affiliation | Unknown | + + + | Race | Unknown | + + + | Ethnic Group | Unknown | + + + Author + + + | Author | [facility] | | | and [place] | + + + | Organization | [facility] | | | and [place] | + + + | Address | Unknown | + + + | Phone | Unavailable | + + + Support + + +---------+ + | Name | Relationship | Address | Phone | + + +---------+ + | RussAnibalUrszula | ECON | Unknown | | + + +---------+ + | David Arndt | ECON | Unknown | | + + +---------+ + Care Team Providers + +------+ + | Care Press Cleaner Name | Role | Phone | + +------+ + | No Physician | PP | Unavailable | + +------+ + Allergies + + + + + + | Active Allergy | Reactions | Severity | Noted | Comments | | | | | Date | | + + + + + + | Acetaminophen | | Medium | 08/15/20 | | | | | | 16 | | + + + + + + | Droperidol | | High | 08/15/20 | | | | | | 16 | | + + + + + + | Ibuprofen | | Medium | 08/15/20 | | | | | | 16 | | + + + + + + | Lisinopril | | High | 08/15/20 | | | | | | 16 | | + + + + + + | Oxybutynin | | High | 08/15/20 | | | | | | 16 | | + + + + + + | Phenobarbital | | High | 08/15/20 | | | | | | 16 | | + + + + + + | Polysorbate | | Medium | 08/15/20 | | | | | | 16 | | + + + + + + | Simvastatin | | High | 08/15/20 | | | | | | 16 | | + + + + + + Current Medications + + +--------+---------+------+------+-------+ | Prescription | Sig. | Disp. | Refills | Star | End | Statu | | | | | | t | Date | s | | | | | | Date | | | + + +--------+---------+------+------+-------+ | albuterol 90 | Inhale 2 puffs into | | | | | Activ | | mcg/puff inhaler | the lungs every 2 | | | | | e | | | hours as needed for | | | | | | | | Wheezing. | | | | | | + + +--------+---------+------+------+-------+ | isosorbide | Take 30 mg by mouth | | | | | Activ | | mononitrate (IMDUR) | Daily. | | | | | e | | 30 mg ER tablet | | | | | | | + + +--------+---------+------+------+-------+ | losartan (COZAAR) | Take 100 mg by mouth | | | | | Activ | | 100 MG tablet | Daily. | | | | | e | + + +--------+---------+------+------+-------+ | DULoxetine | Take 60 mg by mouth | | | | | Activ | | (CYMBALTA) [address] | Daily. | | | | | e | | capsule | | | | | | | + + +--------+---------+------+------+-------+ | busPIRone (BUSPAR) | Take 15 mg by mouth | | | | | Activ | | 10 MG tablet | 3 times daily. | | | | | e | + + +--------+---------+------+------+-------+ | topiramate | Take 200 mg by mouth | | | | | Activ | | (TOPAMAX) 200 MG | 2 times daily. | | | | | e | | tablet | | | | | | | + + +--------+---------+------+------+-------+ | propranolol | Take 60 mg by mouth | | | | | Activ | | (INDERAL) 60 MG | 3 times daily. | | | | | e | | tablet | | | | | | | + + +--------+---------+------+------+-------+ | omeprazole | Take 20 mg by mouth | | | | | Activ | | (PRILOSEC) 20 mg | every morning | | | | | e | | capsule | (before breakfast). | | | | | | + + +--------+---------+------+------+-------+ | promethazine | Take 25 mg by mouth | | | | | Activ | | (PHENERGAN) 25 mg | every 8 hours as | | | | | e | | tablet | needed. | | | | | | + + +--------+---------+------+------+-------+ | allopurinol | Take 300 mg by mouth | | | | | Activ | | (ZYLOPRIM) 300 mg | Daily. | | | | | e | | tablet | | | | | | | + + +--------+---------+------+------+-------+ | ARIPiprazole | Take 2 mg by mouth | | | | | Activ | | (ABILIFY) 5 mg | Daily. | | | | | e | | tablet | | | | | | | + + +--------+---------+------+------+-------+ | amLODIPine | Take 10 mg by mouth | | | | | Activ | | (NORVASC) 10 MG | Daily. | | | | | e | | tablet | | | | | | | + + +--------+---------+------+------+-------+ | aspirin 81 mg | Take 81 mg by mouth | | | | | Activ | | chewable tablet | Daily. | | | | | e | + + +--------+---------+------+------+-------+ | nystatin | Apply topically 2 | | | | | Activ | | (MYCOSTATIN) cream | times daily. | | | | | e | + + +--------+---------+------+------+-------+ | magnesium | Take by mouth Daily | | | | | Activ | | hydroxide (MILK OF | as needed for | | | | | e | | MAGNESIA) 400 mg/5 | Constipation. | | | | | | | mL suspension | | | | | | | + + +--------+---------+------+------+-------+ | nitroglycerin | Place 0.4 mg under | | | | | Activ | | (NITROSTAT) 0.4 mg | the tongue every 5 | | | | | e | | SL tablet | minutes as needed | | | | | | | | for Chest pain. | | | | | | + + +--------+---------+------+------+-------+ | salsalate | Take 750 mg by mouth | | | | | Activ | | (DISALCID) 750 MG | 2 times daily. | | | | | e | | tablet | | | | | | | + + +--------+---------+------+------+-------+ | salsalate | Take 1 tablet by | 120 | 4 | 07/2 | | Activ | | (DISALCID) 750 MG | mouth 2 times daily. | tablet | | 6/20 | | e | | tabletIndications: | | | | 17 | | | | Arthritis | | | | | | | + + +--------+---------+------+------+-------+ | nystatin | Apply to affected | 30 g | 11 | 07/2 | | Activ | | (MYCOSTATIN) | skin twice daily | | | 6/20 | | e | | creamIndications: | after cleansing and | | | 17 | | | | Yeast infection of | drying | | | | | | | the skin | | | | | | | + + +--------+---------+------+------+-------+ | tiZANidine | Take 1 tablet by | 30 | 0 | 08/0 | | Activ | | (ZANAFLEX) 2 MG | mouth every 8 hours | tablet | | 8/20 | | e | | tabletIndications: | as needed. | | | 17 | | | | Acute low back pain, | | | | | | | | unspecified back | | | | | | | | pain laterality, | | | | | | | | with sciatica | | | | | | | | presence unspecified | | | | | | | + + +--------+---------+------+------+-------+ | SUMAtriptan | Inject 6 mg under | | | 09/0 | | Activ | | (IMITREX) 6 mg/0.5 | the skin. | | | 5/20 | | e | | mL injection (vial) | | | | 17 | | | + + +--------+---------+------+------+-------+ | traMADol (ULTRAM) | Take 50 mg by mouth. | | | | | Activ | | 50 mg tablet | | | | | | e | + + +--------+---------+------+------+-------+ | ziprasidone | Take 20 mg by mouth | | | | | Activ | | (GEODON) 20 mg | every evening. | | | | | e | | capsule | | | | | | | + + +--------+---------+------+------+-------+ Active Problems + + + | Problem | Noted Date | + + + | Acute bilateral low back pain with bilateral sciatica | 05/15/2017 | + + + | Abnormality of gait and mobility | 05/15/2017 | + + + | Hemiparesis affecting dominant side as late effect of stroke | 05/15/2017 | | (HCC) | | + + + | Chest pain | 04/17/2016 | + + + | HTN (hypertension) | 04/17/2016 | + + + | T2DM (type 2 diabetes mellitus) (HCC) | 04/17/2016 | + + + | Fibromyalgia | 04/17/2016 | + + + Social History + +-------+ [...] + + + | Blood Pressure | 132/78 | 05/14/2017833 PDT | + + + + | Pulse | 68 | 05/14/2017833 PDT | + + + + | Temperature | 36.7 C (98 F) | 03/30/20171204 PDT | + + + + | Respiratory Rate | 26 | 03/30/20171204 PDT | + + + + | Oxygen Saturation | 96% | 05/14/2017833 PDT | + + + + | Inhaled Oxygen | - | - | | Concentration | | | + + + + | Weight | 105.2 kg (232 lb) | 05/14/2017833 PDT | + + + + | Height | 147 cm (4' 987") | 05/14/2017833 PDT | + + + + | Body Mass Index | 48.71 | 05/14/2017833 PDT | + + + + Plan of Treatment + + + + + | Health Maintenance | Due Date | Last Done | Comments | + + + + + | Hepatitis C | | | | | Screening | 5 | | | + + + + + | Diabetic Eye Exam | | | | | (Bi-Annually) | 3 | | | + + + + + | Diabetic Foot Exam | | | | | | 3 | | | + + + + + | Hemoglobin A1c Q3 | | | | | Months | 3 | | | + + + + + | CERVICAL CANCER | | | | | SCREENING (PAP EVERY | 6 | | | | 3 YEARS 21-64 ) | | | | + + + + + | BREAST CANCER | | | | | SCREENING (MAMM Q2 | 5 | | | | YEARS 50-74) | | | | + + + + + | COLON CANCER | | | | | SCREENING | 5 | | | | (COLONOSCOPY EVERY | | | | | 10 YEARS 50-75) | | | | + + + + + | Vaccine: | | 06/05/2016 | | | Dtap/Tdap/Td (2 - | 6 | | | | Td) | | | | + + + + + | Vaccine: | Completed | 05/08/2017 | | | Pneumococcal 19-64 | | | | | (PPSV23 only) Medium | | | | | Risk | | | | + + + + + | Vaccine: Influenza | Completed | 05/25/2017, 06/05/2016, | | | | | 06/05/2013 | | + + + + + Results Not on filefrom Last 3 Months Insurance + +--------+ +--------+ +---------+ | Payer | Benefi | Subscriber | Type | Phone | Address | | | t Plan | ID | | | | | | / | | | | | | | Group | | | | | + +--------+ +--------+ +---------+ | MEDICARE | MEDICA | xxxxxxxxxx | Medica | [phone] | | | | RE | | re | [phone] | | | | PART A | | | | | | | AND B | | | | | + +--------+ +--------+ +---------+ | [employer] | MODA | [id number] | Medica | [id number] | | MEDICAID HMO | HEALTH | | id | [phone] | | | | MDCD | | | | | | | [place]MO [place] | | | | | + +--------+ +--------+ +---------+ + +--------+ +--------+ + + | Guarantor Name | Accoun | Relation to | Date | Phone | Billing Address | | | t Type | Patient | of | | | | | | | | | | + +--------+ +--------+ + + | MAJOR GROVES | Person | Self [birth year] | Home: | [address] | | | al/Fam | | 1955 | [phone] | [place] | | | [place] | | [phone] | + +--------+ +--------+ + +
--- OUTSIDE RECORDS SUMMARY | 2018-01-06 10:10 | XMS | Encounter Summary ---
Demographics + + + | Address | [address] | | | [place] [address] | + + + | Home Phone | | + + + | Preferred Language | Unknown | + + + | Marital Status | Single | + + + | Yarsanism Affiliation | Unknown | + + + | Race | White | + + + | Ethnic Group | Not or | + + + Author + + + | Author | [facility] | + + + | Organization | [facility] | + + + | Address | Unknown | + + + | Phone | Unavailable | + + + Support + + +---------+ + | Name | Relationship | Address | Phone | + + +---------+ + | DENNY LAAN | ECON | Unknown | | + + +---------+ + Care Team Providers + +------+ + | Care Bleaching Supervisor Name | Role | Phone | + +------+ + | Patti Dillon DO | PCP | | + +------+ + Encounter Details +--------+ + + + + | Date | Type | Department | Care Team | Description | +--------+ + + + + | 11/20/ | Abstract | Neurology at | Clinic, Neurology | | | 2017 | | Center [facility] & | | | | | | Healing [address] | | | | | | [address] Mail Code: | | | | | | [facility] | | | | | | Health and Healing, | | | | | | [address] [place] [address], | | | | | | [place] [address] | | | | | | [phone] | | | +--------+ + + + [...] [place] | | | | | | [address] | | | | | | [phone] | | | | | | | | +--------+---------+ + + + as of this encounter Visit Diagnoses Not on filein this encounter"
--- OUTSIDE RECORDS SUMMARY | 2018-01-06 10:11 | XMS | Clinical Summary ---
Demographics + + + | Address | [address] | | | [place] [address] | + + + | Home Phone | | + + + | Preferred Language | Unknown | + + + | Marital Status | | + + + | Jew Affiliation | Unknown | + + + | Race | Unknown | + + + | Ethnic Group | Unknown | + + + Author + + + | Author | [facility] | | | and [place] | + + + | Organization | [facility] | | | and [...] Team Providers + +------+ + | Care Enterprise Solutions Architect Name | Role | Phone | + [...] | MODA | [id number] | Medica | [id number] | | MEDICAID HMO | HEALTH [...] | | | mack | | | [phone] | [phone] | + +--------+ +--------+ + +
--- OUTSIDE RECORDS SUMMARY | 2018-01-06 10:11 | XMS | Encounter Summary ---
Demographics + + + | Address | [address] | | | [place] [address] | + + + | Home Phone | | + + + | Preferred Language | Unknown | + + + | Marital Status | Single | + + + | Christian Affiliation | Unknown | + + + | Race | White | + + + | Ethnic Group | Not or | + + + Author + + + | Author | [facility] | + + + | Organization | [facility] | + + + | Address | Unknown | + + + | Phone | Unavailable | + + + Support + + +---------+ + | Name | Relationship | Address | Phone | + + +---------+ + | DENNY ALAN | ECON | Unknown | | + + +---------+ + Care Team Providers + +------+ + | Care Sales Representative Printing Name | Role | Phone | + +------+ + | Patti Dillon DO | PCP | | + +------+ + Encounter Details +--------+ + + + + | Date | Type | Department | Care Team | Description | +--------+ + + + + | 11/20/ | Abstract | Neurology at | Clinic, Neurology | | | 2017 | | Center [facility] & | | | | | | Healing [address] | | | | | | [address] Mail Code: | | | | | | [facility] | | | | | | Health and Healing, | | | | | | [address] [place] [address], | | | | | | [place] [address] | | | | | | [phone] | | | +--------+ + + + [...] [place] | | | | | | [address] | | | | | | [phone] | | | | | | | | +--------+---------+ + + + as of this encounter Visit Diagnoses Not on filein this encounter"
--- OUTSIDE RECORDS SUMMARY | 2018-01-06 10:11 | XMS | Encounter Summary ---
Demographics + + + | Address | [address] | | | [place] [address] | + + + | Home Phone | | + + + | Preferred Language | Unknown | + + + | Marital Status | Single | + + + | Gnosticist Affiliation | Unknown | + + + | Race | White | + + + | Ethnic Group | Not or | + + + Author + + + | Author | [facility] | + + + | Organization | [facility] | + + + | Address | Unknown | + + + | Phone | Unavailable | + + + Support + + +---------+ + | Name | Relationship | Address | Phone | + + +---------+ + | DENNY ALAN | ECON | Unknown | | + + +---------+ + Care Team Providers + +------+ + | Care Newspaper Distributor Supervisor Name | Role | Phone | + +------+ + | Patti Dillon DO | PCP | | + +------+ + Encounter Details +--------+ + + + + | Date | Type | Department | Care Team | Description | +--------+ + + + + | 12/19/ | Document-Sc | UNKNOWN DEPARTMENT | Unknown . | | | 2018 | anned | [address] | | | | | | [facility] | | | | | | [place], [place] | | | | | | [address] | | | +--------+ + + + [...] [place] | | | | | | [address] | | | | | | [phone] | | | | | | | | +--------+---------+ + + + as of this encounter Visit Diagnoses Not on filein this encounter"
--- OUTSIDE RECORDS SUMMARY | 2018-01-06 10:11 | XMS | Clinical Summary ---
Demographics + + + | Address | [address] | | | [place] [address] | + + + | Home Phone | | + + + | Preferred Language | Unknown | + + + | Marital Status | | + + + | Episcopal Affiliation | Unknown | + + + | Race | Unknown | + + + | Ethnic Group | Unknown | + + + Author + + + | Author | [facility] | + + + | Organization | [facility] | + + + | [...] | ECON | Unknown | | | [place] | | | | + + +---------+ + Care Team Providers + +------+ + | Care Bdr Name | Role | Phone | + [...] | [id number] | | | [address] | | | RE | | | | [place] [address] | | | IP-OP | | | | | + +--------+ +------+-------+ + | MEDICAID | [place] | xxxxxxxx | | | [address] | | | | | | | [place], [place] | | | MEDICA | | | | [address] | | | ID | | | [...] | mack | | | [phone] | [phone] | + +--------+ +--------+ + +"
--- OUTSIDE RECORDS SUMMARY | 2018-01-06 10:11 | XMS | Encounter Summary ---
Demographics + + + | Address | [address] | | | [place] [address] | + + + | Home Phone | | + + + | Preferred Language | Unknown | + + + | Marital Status | Single | + + + | Scientologist Affiliation | Unknown | + + + | Race | White | + + + | Ethnic Group | Not or | + + + Author + + + | Author | [facility] | + + + | Organization | [facility] | + + + | Address | Unknown | + + + | Phone | Unavailable | + + + Support + + +---------+ + | Name | Relationship | Address | Phone | + + +---------+ + | DENNY ALAN | ECON | Unknown | | + + +---------+ + Care Team Providers + +------+ + | Care Oracle Scm Consultant Name | Role | Phone | + [...] | | unspecified | Patti So, | [address] | | | | | - Tremor, | DO [facility] | [address] | | | | | unspecified | [address] | [address] [place], | | | | | | Family | [place] | | | | | | Health [address] | [address] | | | | | | [place] | Phone: | | | | | | 11 | [phone] | | | | | | [place], | Fax: | | | | | | [place] [address] | [phone] | | | | | | Phone: | | | | | | | [phone] | | | | | | | Fax: | | | | | | | [phone] | | + +--------+ + + + + Encounter Details +--------+---------+ + + + | Date | Type | Department | Care Team | Description | +--------+---------+ + + + | 12/10/ | Office | Neurology at | Sid Marcelino, | Tremor, essential | | 2018 | Visit | [facility] & | MD [address] | (Primary Dx) | | | | Healing [address] | | | | | [address] Mail Code: | [place], [place] | | | | | [facility] | [address] | | | | | Health and Healing, | [phone] | | | | | 8th floor [place], | | | | | | [place] [address] | | | | | | [phone] | | | +--------+---------+ + + + [...] to our clinic due to travel dist [facility]. Tremor is in the head, arms, and legs. It can be reduced from what she has today. She does feel it is interfering with daily activities. Her tremor has occasionally gotten to the [facility] where she needed assistance to help her [...] said her mental health is provided through [employer] with a fax number She was interested in potentially following up via telehealth through the [facility] . I will discuss this possibility with [...] [place] | | | | | | [address] | | | | | | [phone] | | | | | | | | +--------+---------+ + + + as of this encounter Visit Diagnoses + + | Diagnosis | + + | Tremor, essential - Primary | + + | Essential and other specified forms of tremor | + +"
--- OUTSIDE RECORDS SUMMARY | 2018-01-06 10:11 | XMS | Encounter Summary ---
Demographics + + + | Address | [address] | | | [place] [address] | + + + | Home Phone | | + + + | Preferred Language | Unknown | + + + | Marital Status | Single | + + + | Yazdanism Affiliation | Unknown | + + + | Race | White | + + + | Ethnic Group | Not or | + + + Author + + + | Author | [facility] | + + + | Organization | [facility] | + + + | Address | Unknown | + + + | Phone | Unavailable | + + + Support + + +---------+ + | Name | Relationship | Address | Phone | + + +---------+ + | DENNY ALAN | ECON | Unknown | | + + +---------+ + Care Team Providers + +------+ + | Care Washing Machine Repairer Name | Role | Phone | + [...] Tremor (Worsening | | 2018 | | [facility] & | [address] | tremors) | | | | Healing [address] | [address] | | | | | [address] Mail Code: | [place], [place] | | | | | [facility] | [address] | | | | | Health and Healing, | [phone] | | | | | 8th floor [place], | | | | | | [place] [address] | | | | | | [phone] | | | +--------+ + + + [...] [place] | | | | | | [address] | | | | | | [phone] | | | | | | | | +--------+---------+ + + + as of this encounter Visit Diagnoses Not on filein this encounter"
--- OUTSIDE RECORDS SUMMARY | 2018-01-06 10:11 | XMS ---
Demographics + + + | Address | [address] | | | [address] | | | [place] [address] | + + + | Preferred Language [...] | + + + | Organization | [facility] | + + + | Address | 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.] | E66.01 | | | Active | 819329429 | | | obesity | | | | | | | | due to | | | | | | | | excess | | | | | | | | calories | | | | | | +---------+ + + +--------+ + + | Problem | Primary | M17.0 | | | Active | 168240930 | | | osteoarthr | | | | | | | | itis of | | | | | | | | both knees | | | | | | +---------+ + + +--------+ + + | Problem | Chronic | | G89.4 | | Active | 169877168 | | | pain | | | | | | | | syndrome | | | | | | +---------+ + + +--------+ + + | Problem | Essential | | I10 | | Active | 56243412 | | | hypertensi | | | | | | | | on | | | | | | +---------+ + + +--------+ + + | Problem | Type 2 | E11.9 | | | Active | 117632031 | | | diabetes | | | [...] Simvastatin | unknown | Drug Allergy | Feb, | Active | + + + + +--------+ | Polysorbate | unknown | Drug Allergy | Feb, | Active | | 80-Lecithin | | | | | + + + + +--------+ | Phenobarbital | unknown | Drug Allergy | Feb, | Active | + + + + +--------+ | Lisinopril | cough | Drug Allergy | Feb, | Active | + + + + +--------+ | Inapsine | unknown | Drug Allergy | Feb, | Active | + + + + +--------+ | Ditropan | unknown | Drug Allergy | Feb, | Active | + + + + +--------+ SOCIAL HISTORY No smoking Hx information available PLAN OF CARE + +---------+ | Activity | Details | + +---------+ +---+ | | +---+ + + + | Follow Up | prn Reason:null | + + + VITAL SIGNS + + + + | Height | 4 ft 10 in in | 2017-02-16 | + + + + | Weight | 240.4 lbs | 2017-02-16 | + + + + | BMI | 50.24 kg/m2 | 2017-02-16 | + + + + | Heart Rate | 78 /min | 2017-02-16 | + + + + | Blood pressure systolic | 169 mm Hg | 2017-02-16 | + + + + | Blood pressure diastolic | 70 mm Hg | 2017-02-16 | + + + + MEDICATIONS + [...] + + | Office Visit, Est | February 16, 2017 | | | | Pt., Level 4 | | | | + + + + + IMMUNIZATIONS No Known Immunizations"
--- OUTSIDE RECORDS SUMMARY | 2018-01-06 10:11 | XMS | Clinical Summary ---
Demographics + + + | Address | [address] | | | [place] [address] | + + + | Home Phone | | + + + | Preferred Language | Unknown | + + + | Marital Status | Single | + + + | Episcopalian Affiliation | Unknown | + + + [...] Team Providers + +------+ + | Care Header Set Up Operator Name | Role | Phone | + +------+ + | aPtti Dillon | PP | | + +------+ + Source Comments SABINO is fully live on both [facility] and [facility] Allergies + + + + + + [...] | | | + + +-------+---------+------+------+-------+ | albuterol 90 | Inhale by mouth. | | | /2 | 05/05 | Activ | | mcg/actuation | | | | 10/23 | 10/23 | e | | inhalation HFA | | | | 17 | 18 | | | aerosol inhaler | | | | | | | + + +-------+---------+------+------+-------+ | allopurinol 300 mg | Take by mouth. | | | | | Activ | | oral tablet | | | | | | e | + + +-------+---------+------+------+-------+ | amLODIPine 2.5 mg | Take by mouth. | | | | | Activ | | oral tablet | | | | | | e | + + +-------+---------+------+------+-------+ | ARIPiprazole 2 mg | Take by mouth. | | | | | Activ | | oral tablet | | | | | | e | + + +-------+---------+------+------+-------+ | busPIRone 15 mg | Take by mouth. | | | | | Activ | | oral tablet | | | | | | e | + + +-------+---------+------+------+-------+ | DULoxetine 60 mg | Take by mouth. | | | | | Activ | | oral capsule,delayed | | | | | | e | | release(/JULIANE) | | | | | | | + + +-------+---------+------+------+-------+ | furosemide 20 mg | Take 1 tablet every | | | | | Activ | | oral tablet | day by oral route. | | | | | e | + + +-------+---------+------+------+-------+ | gabapentin 300 mg | Take by mouth. | | | 10/05 | 10/05 | Activ | | oral capsule | | | | 04/22 | 04/22 | e | | | | | | 18 | 19 | | + + +-------+---------+------+------+-------+ | ziprasidone | Take 1 capsule twice | | | | | Activ | | (GEODON) 20 mg oral | a day by oral | | | | | e | | capsule | route. | | | | | | + + +-------+---------+------+------+-------+ | isosorbide | Take by mouth. | | | | | Activ | | mononitrate CR 30 mg | | | | | | e | | oral tablet | | | | | | | | extended release 24 | | | | | | | | hr | | | | | | | + + +-------+---------+------+------+-------+ | losartan 100 mg | Take by mouth. | | | | | Activ | | oral tablet | | | | | | e | + + +-------+---------+------+------+-------+ | metFORMIN 500 mg | Take by mouth. | | | / | / | Activ | | oral tablet | | | | 01/20 | 01/20 | e | | | | | | 18 | 19 | | + + +-------+---------+------+------+-------+ | magnesium | Take by mouth. | | | | | Activ | | hydroxide (MILK OF | | | | | | e | | MAGNESIA) 400 mg/5 | | | | | | | | mL oral suspension | | | | | | | + + +-------+---------+------+------+-------+ | nitroglycerin 0.4 | Place under tongue. | | | | | Activ | | mg sublingual | | | | | | e | | tablet, sublingual | | | | | | | + + +-------+---------+------+------+-------+ | ondansetron 4 mg | Take by mouth. | | | 02/2 | | Activ | | oral tablet | | | | 3/20 | | e | | | | | | 18 | | | + + +-------+---------+------+------+-------+ | polyethylene | Take daily as needed | | | 03/0 | | Activ | | glycol 17 gram/dose | to treat | | | 5/20 | | e | | oral powder | constipation for up | | | 18 | | | | | to 7d. | | | | | | + + +-------+---------+------+------+-------+ | propranolol 60 mg | Take by mouth. | | | | | Activ | | oral tablet | | | | | | e | + + +-------+---------+------+------+-------+ | ranitidine 150 mg | Take 1 tablet twice | | | | | Activ | | oral tablet | a day by oral route. | | | | | e | + + +-------+---------+------+------+-------+ | SUMAtriptan 50 mg | Take by mouth. | | | 12/0 | | Activ | | oral tablet | | | | 9/20 | | e | | | | | | 17 | | | + + +-------+---------+------+------+-------+ | polyvinyl alcohol | | | | 01/2 | | Activ | | (ARTIFICIAL TEARS | | | | 5/20 | | e | | (POLYVIN ALC)) 1.4 % | | | | 18 | | | | ophthalmic (eye) | | | | | | | | drops | | | | | | | + + +-------+---------+------+------+-------+ | topiramate 200 mg | Take by mouth. | | | | | Activ | | oral tablet | | | | | | e | + + +-------+---------+------+------+-------+ | traMADol ER 100 mg | Take 1 tablet every | | | | | Activ | | oral tablet | day by oral route. | | | | | e | | extended release 24 | | | | | | | | hr | | | | | | | + + +-------+---------+------+------+-------+ | ASCORBIC ACID | Take 500 mg by | | | | | Activ | | (VITAMIN C ORAL) | mouth. | | | | | e | + + +-------+---------+------+------+-------+ Active Problems + + + | Problem | Noted Date | + + + | Tobacco dependence syndrome | 02/15/2007 | + + + | Morbid obesity (HCC) | 02/15/2007 | + + + | Abnormality of gait | 02/15/2007 | + + + + + | Overview: [facility] disorder clinic at [facility]: no neurological | | gait disorder | [...] elevated | 02/15/2007 | | Creatinine(1.2) in 2006; No neuropathy | | + + + | Tremor, essential | 02/19/2006 | + + + + + | Overview: Not responded to antiparkinsons medications | + + Encounters +--------+ + + + + | Date | Type | Specialty | Care Team | Description | +--------+ + + + + | 12/19/ | Document-Sc | | Unknown | | | 2017 | anned | | | | +--------+ + + + + | 12/10/ | Office | | Sid Marcelino, | Tremor, essential | | 2017 | Visit | | MD | (Primary Dx) | +--------+ + + + + | 11/20/ | Abstract | | Clinic, Neurology | | | 2018 | | | | | +--------+ + + + + | 10/24/ | Telephone | | Sid Marcelino, | Tremor (Worsening | 2017 | | | MD | tremors) | +--------+ + + + + from Last 3 Months Family History + + +------+ + | [...] + + + + Plan of Treatment +--------+---------+ + + + | Date | Type | Specialty | Care Team | Description | +--------+---------+ + + + | 01/09/ | Office | | Xuan Hayden MD | | | 2017 | Visit | | [address] | | | | | | [place] | | | | | | [address] | | | | | | [phone] | | | | | | | | +--------+---------+ + + + + + + + + | Health Maintenance | Due Date | Last Done | Comments | + + + + + | INFLUENZA VACCINE | | | | | (FLU SHOT) | 8 | | | + + + + + Results Not on filefrom Last 3 Months
--- OUTSIDE RECORDS SUMMARY | 2018-01-06 10:11 | XMS | Clinical Summary ---
Demographics + + + | Address | [address] | | | [place] [address] | + + + | Home Phone | | + + + | Preferred Language | Unknown | + + + | Marital Status | Single | + + + | Druze Affiliation | Unknown | + + + [...] Team Providers + +------+ + | Care Washateria Attendant Name | Role | Phone | + +------+ + | Patti Dillon | PP | | + +------+ + Source Comments SABINO is fully live [facility] and [facility] Allergies + + + + + + [...] + | Overview: Movement disorder clinic at [facility]: no neurological | | gait disorder [...] [place] | | | | | | [address] | | | | | | [phone] | | | | | | | [...]
== END 2018-01-06 10:45 ==
LOC: ED 09:05
DX: G43.909 Migraine, unspecified, not intractable, without status migrainosus (principal); F43.9 Reaction to severe stress, unspecified; I10 Essential (primary) hypertension; E11.9 Type 2 diabetes mellitus without complications; E66.01 Morbid (severe) obesity due to excess calories; K21.9 Gastro-esophageal reflux disease without esophagitis; F32.9 Major depressive disorder, single episode, unspecified; Z88.8 Allergy status to other drugs, medicaments and biological substances; Z88.6 Allergy status to analgesic agent; Z79.899 Other long term (current) drug therapy
CPT/HCPCS: 96372; 99285; J3030

== ENCOUNTER 2018-03-25 11:20 | Emergency (ER) | payer MEDICARE, OTHER ==
[~2018-03-25] VITALS: Ht 147.3 cm; Wt 104.8 kg
[~2018-03-25 11:20] MED LIST changes: +BUTRANS1 EAC1 TD; +IMITREX25 MG PO
[2018-03-25] MEDS ORDERED: MACROBID 100 M100 MG PO (13:54)
--- NOTE | 2018-03-26 15:26 | EKG ---
[facility] [address] [facility] [place] [address] Signed Sinus rhythm with 1st degree AV block ST \T\ T wave abnormality, consider lateral ischemia Abnormal ECG When compared with ECG of 17-AUG-2017 03:33, No significant change was found Confirmed by ALEXANDRA WERNER MD ([id number]) on 03/26/2018 3:26:19 PM Electronically Signed By: ALEXANDRA WERNER MD 03/26/18 1526 PATIENT NAME: GROVESMAJOR RAMIRES JEAN Electrocardiogram DATE OF : 55 PHYSICIAN: ALEXANDRA WERNER MD REPORT #: [id number] REPORT IS CONFIDENTIAL AND NOT TO BE RELEASED WITHOUT AUTHORIZATION
== END 2018-03-25 14:25 | disposition home or self-care (01) ==
LOC: ED 11:20
DX: T40.4X1A Poisoning by other synthetic narcotics, accidental (unintentional), initial encounter (principal); T44.3X1A Poisoning by other parasympatholytics [anticholinergics and antimuscarinics] and spasmolytics, accidental (unintentional), initial encounter; E66.01 Morbid (severe) obesity due to excess calories; I10 Essential (primary) hypertension; E11.9 Type 2 diabetes mellitus without complications; Z88.8 Allergy status to other drugs, medicaments and biological substances; Z88.6 Allergy status to analgesic agent
CPT/HCPCS: 70450; 71045; 80053; 80176; 84484; 85025; 93005; 93010; 96361; 96374; 96376; 99285; G0480; J2310; J7030

== ENCOUNTER 2018-03-27 18:06 | Emergency (ER) | payer MEDICARE, OTHER ==
[~2018-03-27] VITALS: Ht 147.3 cm; Wt 104.8 kg
[~2018-03-27 18:06] MED LIST changes: +MACROBID 100 M100 MG PO
--- NOTE | 2018-03-28 13:08 | EKG ---
[facility] [address] [facility] [place] [address] Signed Poor data quality, interpretation may be adversely affected Sinus rhythm with occasional premature ventricular complexes ST \T\ T wave abnormality, consider lateral ischemia Abnormal ECG When compared with ECG of 25-MAR-2018 11:33, premature ventricular complexes are now present MT interval has decreased Confirmed by ALEXANDRA WERNER MD ([id number]) on 03/28/2018 1:08:34 PM Electronically Signed By: ALEXANDRA WERNER MD 03/28/18 1308 PATIENT NAME: MAJOR GROVES JEAN Electrocardiogram DATE OF : 55 PHYSICIAN: ALEXANDRA WERNER MD REPORT #: [id number] REPORT IS CONFIDENTIAL AND NOT TO BE RELEASED WITHOUT AUTHORIZATION
== END 2018-03-27 21:18 | disposition home or self-care (01) ==
LOC: ED 18:06
DX: R25.1 Tremor, unspecified (principal); G89.29 Other chronic pain; N39.0 Urinary tract infection, site not specified; F64.9 Gender identity disorder, unspecified
CPT/HCPCS: 81001; 93005; 93010; 99285

== ENCOUNTER 2018-04-10 16:32 | Emergency (ER) | payer MEDICARE, OTHER ==
[~2018-04-10] VITALS: Ht 147.3 cm; Wt 104.8 kg
[2018-04-10] MEDS ORDERED: KEFLEX500 MG PO (19:17)
== END 2018-04-10 19:27 | disposition home or self-care (01) ==
LOC: ED 16:32
DX: F91.9 Conduct disorder, unspecified (principal); N39.0 Urinary tract infection, site not specified; I10 Essential (primary) hypertension; E11.9 Type 2 diabetes mellitus without complications; F32.9 Major depressive disorder, single episode, unspecified; K21.9 Gastro-esophageal reflux disease without esophagitis; Z86.73 Personal history of transient ischemic attack (TIA), and cerebral infarction without residual deficits; Z88.8 Allergy status to other drugs, medicaments and biological substances; Z79.899 Other long term (current) drug therapy
CPT/HCPCS: 36415; 80053; 81001; 85025; 99285

== ENCOUNTER → 2018-07-11 | Emergency (ER) | payer MEDICARE, OTHER ==
[~2018-07-11] VITALS: Ht 147.3 cm; Wt 104.8 kg
[~2018-07-11] MED LIST changes: +KEFLEX500 MG PO
--- OUTSIDE RECORDS SUMMARY | ~2018-07-11 | XMS | Encounter Summary ---
Demographics + + + | Address | [address] | | | [place] [address] | + + + | Home Phone | | + + + | Preferred Language | Unknown | + + + | Marital Status | | + + + | Pentecostal Affiliation | 1025 | + + + | Race | Unknown | + + + | Ethnic Group | Unknown | + + + Author + + + | Author | [facility] [place] [facility] | + + + | Organization | [facility] | + + + [...] | ECON | Unknown | | | [place] | | | | + + +---------+ + Care Team Providers + +------+ + | Care Milk House Worker Name | Role | Phone | + +------+ + | Dayan Villareal MD | PCP | | + +------+ + Reason for Visit + + + | Reason | Comments | + + + | Referral | bilat knee | + + + Encounter Details +--------+ + + + + | Date | Type | Department | Care Team | Description | +--------+ + + + + | 04/18/ | Documentati | [facility] | [facility] | Referral (bilat knee | | 2018 | on Only | [facility] | Referral Department | ) | | | | MEDICINE FELICIANO | [address] | | | | | [address] | [place] [address] | | | | | [place], [place] | [phone] | | | | | [address] | | | | | | [phone] | | | +--------+ + + + [...] as of this encounter Plan of Treatment Not on fileas of this encounter Visit Diagnoses Not on filein this encounter"
--- OUTSIDE RECORDS SUMMARY | ~2018-07-11 | XMS | Clinical Summary ---
Demographics + + + | Address | [address] | | | [place] [address] | + + + | Home Phone | | + + + | Preferred Language | Unknown | + + + | Marital Status | | + + + | Church Affiliation | Unknown | + + + | Race | Unknown | + + + | Ethnic Group | Unknown | + + + Author + + + | Author | [facility] | | | and [place] | + + + | Organization | [facility] | | | [...] Team Providers + +------+ + | Care Household Refrigerator Mechanic Name | Role | Phone | + [...] Eye Exam | | | | | | 3 | | | + + + + + | Diabetic Foot Exam | | | | | | 3 | | | + + + + + | Hemoglobin A1c Q3 | | | | | Months | 3 | | | + + + + + | Cervical Cancer | | | | | Screening (Pap) | 5 | | | + + + + + | BREAST CANCER | | | | | SCREENING (MAMM Q2 | 5 | | | | YEARS 50-74) | | | | + + + + + | Colorectal Cancer | | | | | Screening | 5 | | | | (Colonoscopy) | | | | + + + + + | Vaccine: Zoster (1 | | | | | of 2) | 5 | | | + + + + + | Adult Annual | | | | | Wellness Visit | 6 | | | + + + + + | Vaccine: Influenza | | 05/25/2017, 06/05/2016, | | | (#1) | 8 | 06/05/2013 | | + + + [...] +--------+ +---------+ | MEDICARE | MEDICA | [id number] | Medica | +1--- | | | | RE | | re | 555 | | | | PART A | | | | | | | AND B | | | | | + +--------+ +--------+ +---------+ | MODA HEALTH PLAN | MODA | [id number] | Medica | +156- | | | MEDICAID HMO | HEALTH [...] Self | [birth year] | Home: | [address] | | | al/Fam | | [phone] | [phone] | [place] | | | mack | | | [phone] | [phone] | + +--------+ +--------+ + +
--- OUTSIDE RECORDS SUMMARY | ~2018-07-11 | XMS | Clinical Summary ---
Demographics + + + | Address | [address] | | | [place] [address] | + + + | Home Phone [...] Team Providers + +------+ + | Care Shop Foreman Name | Role | Phone | + +------+ + | Patti Dillon | PP | | + +------+ + Source Comments SABINO is fully live [facility] and [facility] Allergies + + + + + [...] | | | | e | | release(/EC) | | | | | | | + + +-------+---------+------+------+-------+ | furosemide 20 mg | Take 1 tablet every | | | | | Activ | | oral tablet | day by oral route. | | | | | e | + + +-------+---------+------+------+-------+ | gabapentin 300 mg | Take by mouth. | | | /2 | 10/05 | Activ | | oral [...] | Take by mouth. | | | 09/04 | 09/04 | Activ | | oral tablet | [...] gram/dose | to treat | | | 20 | | e | | oral powder [...] | oral tablet | | | | 20 | | e | | | | | | 17 | | | + + +-------+---------+------+------+-------+ | polyvinyl alcohol | | | | 01/2 | | Activ | | (ARTIFICIAL TEARS | | | | /20 | | e | | (POLYVIN ALC)) [...] + | Overview: Movement disorder clinic at [facility]: no neurological | | gait disorder [...] + + + | Blood Pressure | 135/90 | 01/09/2018 2:25 PM PDT | + + + + | Pulse | 74 | 01/09/2018 2:25 PM PDT | + + + + [...] Weight | 105.2 kg (232 lb) | 01/09/2018 2:25 PM PDT | + + + + | Height | 144.8 cm (4' 9") | 01/09/2018 2:25 PM PDT | + + + + | Body Mass Index | 50.2 | 01/09/2018 2:25 PM PDT | + + + + Plan of Treatment + + + + + | Health Maintenance | Due Date | Last Done | Comments | + + + + + | Influenza (Flu) | | 05/04/2017, 06/05/2016, | | | vaccination (#1) | 8 | 06/05/2013 | | + + + + + | Pneumococcal (Adult) | Completed | 05/08/2017 | | + + + + + Results Not on filefrom Last 3 Months Insurance + +--------+ +--------+ + + | Payer | Benefi | Subscriber | Type | Phone | Address | | | t Plan | ID | | | | | | / | | | | | | | Group | | | | | + +--------+ +--------+ + + | MEDICARE | MEDICA | xxxxxxxxxx | Medica | +- | [address] | | | RE A & | | re | [phone] | [place] [address] | | | B | | | | | + +--------+ +--------+ + + | MEDICARE | MEDICA | xxxxxxxxxx | Medica | +- | [address] | | | RE A & | | re | [phone] | [place] [address] | | | B | | | | | + +--------+ +--------+ + + | BARREL INSPECTOR MEDICAID | BARREL INSPECTOR | xxxxxxxx | Medica | | | | | [place] | | id | | | | | [place] | | | | | + +--------+ +--------+ + + | BARREL INSPECTOR MEDICAID | BARREL INSPECTOR | xxxxxxxx | Medica | | | | | [place] | | id | | | | | [place] | | | | | + +--------+ +--------+ + + + +--------+ +--------+ + + | Guarantor Name | Accoun | Relation to | Date | Phone | Billing Address | | | t Type | Patient | of | | | | | | | | | | + +--------+ +--------+ + + | MAJOR GROVES | Person | Self [birth year] | Home: | [address] | | | al/Fam | | 5 | [phone] | [place] | | | m[place] | | | [phone] | [phone] | + +--------+ +--------+ + + | MAJOR GROVES | Person | Self | [birth year] | Home: | [address] | | | al/Fam | | 1955 | [phone] | [place] | | | mack | | | [phone] | [phone] | + +--------+ +--------+ + +
--- OUTSIDE RECORDS SUMMARY | ~2018-07-11 | XMS | Encounter Summary ---
Demographics + + + | Address | [address] | | | [place] [address] | + + + | Home Phone | | + + + | Preferred Language | Unknown | + + + | Marital Status | | + + + | Religion Affiliation | 1025 | + + + | Race | Unknown | + + + | Ethnic Group | Unknown | + + + Author + + + | Author | [facility] | + + + | Organization | [facility] | + + + [...] | ECON | Unknown | | | [place] | | | | + + +---------+ + Care Team Providers + +------+ + | Care Sap Security Architect Name | Role | Phone | [...] + + | 04/18/ | Documentati | [facility] | [facility] | Referral (bilat knee | | 2018 | on Only | [facility] | Referral Department | ) | | | | MEDICINE FELIC[facility]O | [address] | | | | | [address] | [place] [address] | | | | | [place], [place] | [phone] | | | | | [address] | | | | | | [phone] | | | +--------+ + + + [...]
--- OUTSIDE RECORDS SUMMARY | ~2018-07-11 | XMS | Clinical Summary ---
Demographics + + + | Address | [address] | | | [place] [address] | + + + | Home Phone | | + + + | Preferred Language | Unknown | + + + | Marital Status | | + + + | Taoism Affiliation | Unknown | + + + | Race | Unknown | + + + | Ethnic Group | Unknown | + + + Author + + + | Author | [facility] | | | and [place] | + + + | Organization | [facility] | | | and [...] Team Providers + +------+ + | Care Lithographer Apprentice Name | Role | Phone | + [...] +--------+ +---------+ | MEDICARE | MEDICA | [id number] | Medica | +1--- | | | | RE | | re | 555 | | | | PART A | | | | | | | AND B | | | | | + +--------+ +--------+ +---------+ | MODA HEALTH PLAN | MODA | [id number] | Medica | +107- | | | MEDICAID HMO | HEALTH [...] | mack | | | [phone] | [phone] | + +--------+ +--------+ + +
--- OUTSIDE RECORDS SUMMARY | ~2018-07-11 | XMS | Clinical Summary ---
Demographics + + + | Address | [address] | | | [place] [address] | + + + | Home Phone | | + + + | Preferred Language | Unknown | + + + | Marital Status | | + + + | Moravian Affiliation | 1025 | + + + | Race | Unknown | + + + | Ethnic Group | Unknown | + + + Author + + + | Author | [facility] | + + + | Organization | [facility] | + + + | [...] | ECON | Unknown | | | [place] | | | | + + +---------+ + Care Team Providers + +------+ + | Care Laboratory Veterinarian Name | Role | Phone | + +------+ + | Dayan Villareal MD | PP | | + +------+ + Allergies + + + + + + | Active Allergy | Reactions | Severity | Noted | Comments | | | | | Date | | + + + + + + | Oxybutynin | Other (See Comments) | Medium | 02/06/20 | Per doctor reacts | | | | | 18 | with kidneys and | | | | | | liver | + + + + + + | Droperidol | Other (See Comments) | Medium | 02/06/20 | Per doctor reacts | | | | | 18 | with kidneys and | | | | | | liver | + + + + + + | Phenobarbital | Other (See Comments) | Medium | 02/06/20 | Causes | | | | | 18 | hyperactivity | + + + + + + | Simvastatin | Other (See Comments) | Medium | 02/06/20 | Doctor put as an | | | | | 18 | allergy because it | | | | | | reacts with her | | | | | | liver and kidneys | + + + + + + Current Medications + + +-------+---------+------+------+-------+ | Prescription | Sig. | Disp. | Refills | Star | End | Statu | | | | | | t | Date | s | | | | | | Date | | | + + +-------+---------+------+------+-------+ | albuterol | Inhale 2 puffs into | | | | | Activ | | (PROVENTIL | the lungs every 4 | | | | | e | | HFA;VENTOLIN HFA) | (four) hours as | | | | | | | 108 (90 Base) | needed for Wheezing. | | | | | | | MCG/ACT inhaler | | | | | | | + + +-------+---------+------+------+-------+ | allopurinol | Take 300 mg by mouth | | | | | Activ | | (ZYLOPRIM) 300 MG | daily. | | | | | e | | tablet | | | | | | | + + +-------+---------+------+------+-------+ | amLODIPine | Take 2.5 mg by mouth | | | | | Activ | | (NORVASC) 2.5 MG | daily. | | | | | e | | tablet | | | | | | | + + +-------+---------+------+------+-------+ | Buprenorphine 5 | Place onto the | | | | | Activ | | MCG/HR PTWK | skin. | | | | | e | + + +-------+---------+------+------+-------+ | busPIRone (BUSPAR) | Take 15 mg by mouth | | | | | Activ | | 15 MG tablet | 3 (three) times | | | | | e | | | daily. | | | | | | + + +-------+---------+------+------+-------+ | Misc. Devices | by Does not apply | | | | | Activ | | (MEDICINE | route. | | | | | e | | DROPPER/CALIBRATED) | | | | | | | | MISC | | | | | | | + + +-------+---------+------+------+-------+ | diclofenac | 1 drop 4 (four) | | | | | Activ | | (VOLTAREN) 0.1 % | times daily. | | | | | e | | ophthalmic solution | | | | | | | + + +-------+---------+------+------+-------+ | docusate sodium | Take 100 mg by mouth | | | | | Activ | | (COLACE) 100 MG | daily. | | | | | e | | capsule | | | | | | | + + +-------+---------+------+------+-------+ | DULoxetine | Take 30 mg by mouth | | | | | Activ | | (CYMBALTA) 30 MG | daily. | | | | | e | | capsule | | | | | | | + + +-------+---------+------+------+-------+ | furosemide (LASIX) | Take 20 mg by mouth | | | | | Activ | | 20 MG tablet | daily. | | | | | e | + + +-------+---------+------+------+-------+ | gabapentin | Take 300 mg by mouth | | | | | Activ | | (NEURONTIN) 300 MG | 3 (three) times | | | | | e | | capsule | daily. | | | | | | + + +-------+---------+------+------+-------+ | ziprasidone | Take 20 mg by mouth | | | | | Activ | | (GEODON) 20 MG | 2 (two) times daily | | | | | e | | capsule | with meals. | | | | | | + + +-------+---------+------+------+-------+ | isosorbide | Take 30 mg by mouth | | | | | Activ | | mononitrate (IMDUR) | daily. | | | | | e | | 30 MG 24 hr tablet | | | | | | | + + +-------+---------+------+------+-------+ | losartan (COZAAR) | Take 100 mg by mouth | | | | | Activ | | 100 MG tablet | daily. | | | | | e | + + +-------+---------+------+------+-------+ | metFORMIN | Take 500 mg by mouth | | | | | Activ | | (GLUCOPHAGE) 500 MG | 2 (two) times daily | | | | | e | | tablet | with meals. | | | | | | + + +-------+---------+------+------+-------+ | magnesium | Take 5 mLs by mouth | | | | | Activ | | hydroxide (MILK OF | daily as needed for | | | | | e | | MAGNESIA) 400 MG/5ML | Constipation. | | | | | | | suspension | | | | | | | + + +-------+---------+------+------+-------+ | nitroGLYCERIN | Place 0.4 mg under | | | | | Activ | | (NITROSTAT) 0.4 MG | the tongue every 5 | | | | | e | | SL tablet | (five) minutes as | | | | | | | | needed for Chest | | | | | | | | pain. | | | | | | + + +-------+---------+------+------+-------+ | ondansetron | Take 4 mg by mouth 3 | | | | | Activ | | (ZOFRAN) 4 MG tablet | (three) times daily | | | | | e | | | as needed for | | | | | | | | Nausea. | | | | | | + + +-------+---------+------+------+-------+ | polyethylene | Take 17 g by mouth | | | | | Activ | | glycol (GLYCOLAX) | daily. | | | | | e | | packet | | | | | | | + + +-------+---------+------+------+-------+ | propranolol | Take 60 mg by mouth | | | | | Activ | | (INDERAL) 60 MG | 3 (three) times | | | | | e | | tablet | daily. | | | | | | + + +-------+---------+------+------+-------+ | ranitidine | Take 150 mg by mouth | | | | | Activ | | (ZANTAC) 150 MG | 2 (two) times | | | | | e | | tablet | daily. | | | | | | + + +-------+---------+------+------+-------+ | SUMAtriptan | Take 50 mg by mouth | | | | | Activ | | (IMITREX) 25 MG | as needed for | | | | | e | | tablet | Migraine. | | | | | | + + +-------+---------+------+------+-------+ | Polyethyl | Apply to eye. | | | | | Activ | | Glyc-Propyl Glyc PF | | | | | | e | | (SYSTANE ULTRA PF) | | | | | | | | 0.4-0.3 % SOLN | | | | | | | + + +-------+---------+------+------+-------+ | topiramate | Take 200 mg by mouth | | | | | Activ | | (TOPAMAX) 200 MG | 2 (two) times | | | | | e | | tablet | daily. | | | | | | + + +-------+---------+------+------+-------+ | TraMADol HCl 100 | Take by mouth. | | | | | Activ | | MG CP24 | | | | | | e | + + +-------+---------+------+------+-------+ | ascorbic acid | Take 500 mg by mouth | | | | | Activ | | (VITAMIN C) 500 MG | daily. | | | | | e | | tablet | | | | | | | + + +-------+---------+------+------+-------+ Active Problems Not on file Encounters +--------+ + + + + | Date | Type | Specialty | Care Team | Description | +--------+ + + + + | 04/18/ | Documentati | | [facility] | Referral (bilat knee | | 2018 | on Only | | Referral Department | ) | +--------+ + + + + from Last 3 Months Social History + +-------+ +--------+------+ | Tobacco [...] + + + | Blood Pressure | 114/70 | 02/05/2018 10:00 AM PDT | + + + + | Pulse | 63 | 02/05/2018 10:00 AM PDT | + + + + | Temperature | - | - | + + + + | Respiratory Rate | - | - | + + + + | Oxygen Saturation | 95% | 02/05/2018 10:00 AM PDT | + + + + | Inhaled Oxygen | - | - | | Concentration | | | + + + + | Weight | - | - | + + + + | Height | 144.8 cm (4' 9") | 02/05/2018 10:00 AM PDT | + + + + | Body Mass Index | - | - | + + + + Plan of Treatment + + + + + | Health Maintenance | Due Date | Last Done | Comments | + + + + + | Cervical Cancer | | | | | Screening (Pap) | 5 | | | + + + + + | Breast Cancer | | | | | Screening | 5 | | | | (Mammogram) | | | | + + + + + | Colon Cancer | | | | | Screening | 5 | | | | (Colonoscopy) | | | | + + + + + | Vaccine: Zoster (1 | | | | | of 2) | 5 | | | + + + + + | Vaccine: Influenza | | 05/25/2017, 05/04/2017 | | | (#1) | 8 | | | + + [...] +------+-------+ + | MEDICARE | MEDICA | [id number] | | | [address] | | | RE | | | | [place] [address] | | | IP-OP | | | | | + +--------+ +------+-------+ + | MEDICAID | ELIAZAR | [id number] | | | [address] | | | N | | | | [place] | | | [place] | | | | [address] | | | VIOLIN RESTORER | | | | | + +--------+ +------+-------+ + + +--------+ +--------+ + + | Guarantor Name | Accoun | Relation to | Date | Phone | Billing Address | | | t Type | Patient | of | | | | | | | | | | + +--------+ +--------+ + + | MAJOR GROVES | Person | Self [birth year] | Work: | [address] | | | al/[place] | | 1954 | [phone] [place] | | | [place] | | | [phone] Home: | [address] | | | | | | | | | | | | [phone] | | | | | | | [phone] | | + +--------+ +--------+ + +
--- OUTSIDE RECORDS SUMMARY | ~2018-07-11 | XMS | Clinical Summary ---
Demographics + + + | Address | [address] | | | [place] [address] | + + + | Home Phone | | + + + | Preferred Language | Unknown | + + + | Marital Status | | + + + | Congregation Affiliation | 1025 | + + + | Race | Unknown | + + + | Ethnic Group | Unknown | + + + Author + + + | Author | [facility] | + + + | Organization | [facility] | + + [...] Team Providers + +------+ + | Care Pourer Crane Ladle Name | Role | Phone | + [...] +------+-------+ + | MEDICARE | MEDICA | [id number] | | | [address] | | | RE | | | | [place] [phone] | | | IP-OP | | | | | + +--------+ +------+-------+ + | MEDICAID | ELIAZAR | [id number] | | | [address] | | | N | | | | [place] | | | [place] | | | | [phone] | | | WASTE WATER OR WATER PLANT OPERATOR | | | | | + +--------+ [...] | | al/Brock | | 1954 | [phone] | [place] | | | mack | | | [phone]: | [address] | | | | | | | | | | | | | [phone] | | | | | | | [phone] | | + +--------+ +--------+ + +
--- OUTSIDE RECORDS SUMMARY | ~2018-07-11 | XMS | Clinical Summary ---
Demographics + + + | Address | [address] | | | [place] [address] | + + + | Home Phone | | + + + | Preferred Language | Unknown | + + + | Marital Status | Single | + + + | Jehovah'S Witness Affiliation | Unknown | + + + [...] Team Providers + +------+ + | Care Mangle Operator Garments Name | Role | Phone | + +------+ + | Patti Dillon | PP | | + +------+ + Source Comments SABINO is fully live on both [facility] and [facility] Allergies + + [...] + | Overview: Movement disorder clinic at [facility]: no neurological | | gait disorder | [...] | re | [address] | [place] [address] | | | B | | | | | + +--------+ +--------+ + + | MEDICARE | MEDICA | xxxxxxxxxx | Medica | +- | [address] | | | RE A & | | re | [address] | [place] [address] | | | B | | | | | + +--------+ +--------+ + + | CAREER DEVELOPER MEDICAID | CAREER DEVELOPER | xxxxxxxx | Medica | | | | | EASTER | | id | | | | | N [place] | | | | | + +--------+ +--------+ + + | CAREER DEVELOPER MEDICAID | CAREER DEVELOPER | xxxxxxxx | Medica | | | [...] | mack | | | [phone] | [phone] | + +--------+ +--------+ + + | MAJOR GROVES | Person | Self | [birth year] | Home: | [address] | | | al/Fam | | 1955 | [phone] | [place] | | | mack | | | [phone] | [phone] | + +--------+ +--------+ + +
--- OUTSIDE RECORDS SUMMARY | 2018-07-11 11:02 | XMS ---
PreManage Notification: MAJOR GROVES Security Smt Technician Events No recent Security Events currently on file CRITERIA MET - Group Notification - MARCIO - MEY CARE PROVIDERS STEPHANIE DAY Nurse Practitioner Current PHONE: [phone] ALFRED OBRIEN [facility] 04/04/2018-Current [phone]Arsh MENDEZ PHONE: Unknown DR MENDEZ Primary Care 07/03/2017-Arsh GARZON PHONE: [phone] [facility] Mental [facility] Provider Current PHONE: [phone] Robb Marcano - Case or Land Leasing Information Clerk Current [facility] PHONE: [phone] Jeannette has no Care Guidelines for this patient. Care History Behavioral 05/15/2018 [facility] - Gisele Currently receiving mental health services through [facility] in [place]; Please contact [facility] for mental health concerns. [phone] Medical/Surgical 01/07/2018 [facility] - Patient is currently living at [facility]. - CHW spoke with PCP who stated patient was referred to [facility] in [place] in October. - MRI was ordered in November by [facility], and showed back problems (chronic ongoing condition). 11/28/2017 [facility] Care Recommendation: This patient has had 5 or more Emergency Department visits in the last 12 months. Patient requires education on the scope and purpose of the ED as an acute care provider not a Primary Care Provider and should not be utilized for chronic conditions. If patient returns to ED please contact Community Health WorkerJoanna at [phone]. These are guidelines and the provider should exercise clinical judgment when providing care. E.D. VISIT COUNT (12 MO.) [address] [place], [place] [address] TIFFANY Saleh TOTAL 11 NOTE: Visits indicate total known visits. ED/UCC VISIT TRACKING (12 MO.) 07/11/2018 10:59 [place] TYPE: Emergency COMPLAINT: - PSYCH EVALUATION,MEDICAL CLEARANCE 04/10/2018 16:33 [place] TYPE: Emergency COMPLAINT: - HALLUCINATIONS DIAGNOSES: - Personal history of transient ischemic attack (TIA), and cerebral infarction without residual deficits - Gastro-esophageal reflux disease without esophagitis - Major depressive disorder, single episode, unspecified - Other half-way (current) drug therapy - Urinary tract infection, site not specified - Allergy status to other drugs, medicaments and biological substances status - Type 2 diabetes mellitus without complications - Conduct disorder, unspecified - Essential (primary) hypertension 03/27/2018 18:07 [place] TYPE: Emergency COMPLAINT: - CHEST PAIN DIAGNOSES: - Other chronic pain - Urinary tract infection, site not specified - Gender identity disorder, unspecified - Chest pain, unspecified - Tremor, unspecified 03/25/2018 11:20 [place] [place] TYPE: Emergency COMPLAINT: - ALTERED MENTAL DIAGNOSES: - Allergy status to other drugs, medicaments and biological substances status - Altered mental status, unspecified - Essential (primary) hypertension - Type 2 diabetes mellitus without complications - Allergy status to analgesic agent status - Poisoning by other parasympatholytics [anticholinergics and antimuscarinics] and spasmolytics, accidental (unintentional), initial encounter - Poisoning by other synthetic narcotics, accidental (unintentional), initial encounter - Morbid (severe) obesity due to excess calories 01/06/2018 09:06 [place] TYPE: Emergency COMPLAINT: - HIGH BP DIAGNOSES: - Essential (primary) hypertension - Allergy status to other drugs, medicaments and biological substances status - Migraine, unspecified, not intractable, without status migrainosus - Nausea - Allergy status to analgesic agent status - Other half-way (current) drug therapy - Reaction to severe stress, unspecified - Major depressive disorder, single episode, unspecified - Morbid (severe) obesity due to excess calories - Type 2 diabetes mellitus without complications - Gastro-esophageal reflux disease without esophagitis 12/26/2017 10:35 [facility] [place] TYPE: Emergency COMPLAINT: - ALTERED MENTAL STATUS DIAGNOSES: - Adverse effect of other antipsychotics and neuroleptics, initial encounter - Personal history of nicotine dependence - Altered mental status, unspecified 12/25/2017 22:50 [facility] [employer] TYPE: Emergency COMPLAINT: - NOT FEELING WELL DIAGNOSES: - Hallucinations, unspecified - Personal history of transient ischemic attack (TIA), and cerebral infarction without residual deficits - Personal history of nicotine dependence 11/17/2017 16:54 [facility] TYPE: Emergency COMPLAINT: - BACK PAIN DIAGNOSES: - Other chronic pain - Low back pain - Personal history of nicotine dependence 11/10/2017 21:55 [facility] TYPE: Emergency DIAGNOSES: 0. SOB, CP AND PRESSURE 09/25/2017 20:32 TIFFANY Barrera TYPE: Emergency COMPLAINT: - DIABETIC ISSUES DIAGNOSES: - Major depressive disorder, single episode, unspecified - Essential (primary) hypertension - Migraine, unspecified, not intractable, without status migrainosus - Gastro-esophageal reflux disease without esophagitis - Other half-way (current) drug therapy - Type 2 diabetes mellitus with hyperglycemia - Morbid (severe) obesity due to excess calories - Allergy status to other drugs, medicaments and biological substances status 08/17/2017 03:18 [facility] [place] TYPE: Emergency COMPLAINT: - HEADACHE DIAGNOSES: - Other intermodal owner operator truck driver (current) drug therapy - Allergy status to narcotic agent status - Morbid (severe) obesity due to excess calories - Essential (primary) hypertension - Allergy status to analgesic agent status - terminal computer operator (current) use of aspirin - Type 2 diabetes mellitus without complications - Acquired absence of unspecified great toe - Tubal ligation status - Acquired absence of both cervix and uterus - OTHER SPECIFIED POSTPROCEDURAL STATES - Migraine, unspecified, not intractable, without status migrainosus - Allergy status to other drugs, medicaments and biological substances status INPATIENT VISIT TRACKING (12 MO.) No inpatient visits to display in this time frame [email or web address]
== END ==
LOC: ED 10:57
DX: F29 Unspecified psychosis not due to a substance or known physiological condition (principal); F60.9 Personality disorder, unspecified; I10 Essential (primary) hypertension; E11.9 Type 2 diabetes mellitus without complications; E66.01 Morbid (severe) obesity due to excess calories; F32.9 Major depressive disorder, single episode, unspecified; K21.9 Gastro-esophageal reflux disease without esophagitis; Z88.8 Allergy status to other drugs, medicaments and biological substances; Z79.899 Other long term (current) drug therapy
CPT/HCPCS: 36415; 80053; 80176; 81001; 85025; 99283; G0480

== ENCOUNTER 2018-10-05 10:57 | Emergency (ER) | payer MEDICARE, OTHER ==
[~2018-10-05] VITALS: Ht 147.3 cm; Wt 104.8 kg
--- OUTSIDE RECORDS SUMMARY | 2018-10-05 11:00 | XMS ---
PreManage Notification: MAJOR GROVES Security Dowel Maker Events No recent Security Events currently on file CRITERIA MET - Group Notification - [facility] - Has Care [facility] - POL CARE PROVIDERS Sera Hernandez Chair Upholsterer/Heddler 02/17/2017-Current PHONE: [phone] Lauren Kelley Nurse Practitioner Current PHONE: [phone] ALFRED OBRIEN [facility] 04/04/2018-Current A PHONE: [phone] CARLY LAMBERT [facility] 01/08/2018-Arsh So PHONE: Unknown DR MENDEZ Primary Care 07/03/2017-Alma Johns PHONE: [phone] Sera Hernandez Primary Care 02/17/2017-Current PHONE: [phone] Leandro Thurston Mental Health Provider Current PHONE: [phone] ANDREA So Primary Care 01/09/2018-Alma Johns PHONE: Unknown Robb Marcano - Case or Clinical Counselor Current [facility] PHONE: [phone] Jeannette has no Care Guidelines for this patient. Care History Behavioral 05/15/2018 [facility] - Gisele Currently receiving mental health services through [facility] in [place]; Please contact [facility] for mental health concerns. [phone] Medical/Surgical 01/07/2018 [facility] - Patient is currently living at [facility]. - CHW spoke with PCP who stated patient was referred to [facility] in [place] in October. - MRI was ordered in November by [facility], and showed back problems (chronic ongoing condition). 11/28/2017 [facility] Care Recommendation: This patient has had 5 or more Emergency Department visits in the last 12 months. Patient requires education on the scope and purpose of the ED as an acute care provider not a Primary Care Provider and should not be utilized for chronic conditions. If patient returns to ED please contact Community Health WorkerJoanna at [phone]. These are guidelines and the provider should exercise clinical judgment when providing care. E.D. VISIT COUNT (12 MO.) [address] TOTAL 10 NOTE: Visits indicate total known visits. ED/UCC VISIT TRACKING (12 MO.) 10/05/2018 10:57 [facility] [place] TYPE: Emergency COMPLAINT: - ALTERED LOC 07/11/2018 10:59 [facility] [place] TYPE: Emergency COMPLAINT: - PSYCH EVALUATION,MEDICAL CLEARANCE DIAGNOSES: - Gastro-esophageal reflux disease without esophagitis - Morbid (severe) obesity due to excess calories - Allergy status to other drugs, medicaments and biological substances status - Essential (primary) hypertension - Other rat exterminator (current) drug therapy - Major depressive disorder, single episode, unspecified - Unspecified psychosis not due to a substance or known physiological condition - Personality disorder, unspecified - Type 2 diabetes mellitus without complications 04/10/2018 16:33 [facility] [place] TYPE: Emergency COMPLAINT: - HALLUCINATIONS DIAGNOSES: - Personal history of transient ischemic attack (TIA), and cerebral infarction without residual deficits - Gastro-esophageal reflux disease without esophagitis - Major depressive disorder, single episode, unspecified - Other rat exterminator (current) drug therapy - Urinary tract infection, [...] status to analgesic agent status - Other shelter (current) drug therapy - Reaction to severe stress, unspecified - Major depressive disorder, single episode, unspecified - Morbid (severe) obesity due to excess calories - Type 2 diabetes mellitus without complications - Gastro-esophageal reflux disease without esophagitis 12/26/2017 10:35 [facility] [place] TYPE: Emergency COMPLAINT: - ALTERED MENTAL STATUS DIAGNOSES: - Adverse effect of other antipsychotics and neuroleptics, initial encounter - Personal history of nicotine dependence - Altered mental status, unspecified 12/25/2017 22:50 [facility] [place] TYPE: Emergency COMPLAINT: - NOT FEELING WELL DIAGNOSES: - Hallucinations, unspecified - Personal history of transient ischemic attack (TIA), and cerebral infarction without residual deficits - Personal history of nicotine dependence 11/17/2017 16:54 [facility] TYPE: Emergency COMPLAINT: - BACK PAIN DIAGNOSES: - Other chronic pain - Low back pain - Personal history of nicotine dependence 11/10/2017 21:55 [facility] TYPE: Emergency DIAGNOSES: 0. SOB, CP AND PRESSURE INPATIENT VISIT TRACKING (12 MO.) No inpatient visits to display in this time frame [email or web address]
== END 2018-10-05 14:55 | disposition home or self-care (01) ==
LOC: ED 10:57
DX: F03.90 Unspecified dementia, unspecified severity, without behavioral disturbance, psychotic disturbance, mood disturbance, and anxiety (principal); F32.9 Major depressive disorder, single episode, unspecified; I10 Essential (primary) hypertension; E11.9 Type 2 diabetes mellitus without complications; E66.01 Morbid (severe) obesity due to excess calories; K21.9 Gastro-esophageal reflux disease without esophagitis; Z88.8 Allergy status to other drugs, medicaments and biological substances; Z79.899 Other long term (current) drug therapy
CPT/HCPCS: 99284

== ENCOUNTER 2018-10-17 13:16 | Emergency (ER) | payer MEDICARE, OTHER ==
[~2018-10-17] VITALS: Ht 147.3 cm; Wt 104.8 kg
--- OUTSIDE RECORDS SUMMARY | 2018-10-17 13:18 | XMS ---
PreManage Notification: MAJOR GROVES Security Technology Sales Representative Events No recent Security Events currently on file CRITERIA MET - Group Notification - [facility] - Has Care Guidelines - POLST - PDMP - [facility] - 2 Visits in 30 Days CARE PROVIDERS Sera Hernandez Manager Photo/Primary Care Coordinator 02/17/2017-Current PHONE: [phone] STEPHANIE DAY Nurse Practitioner Current PHONE: [phone] ALFRED OBRIEN [facility] 04/04/2018-Current A PHONE: [phone] CARLY LAMBERT, Family Medicine 01/08/2018-Arsh So PHONE: Unknown DR MENDEZ Primary Care 07/03/2017-Current CARLY-PETRA PHONE: [phone] Sera Hernandez Primary Care 02/17/2017-Current PHONE: [phone] Leandro Thurston Mental Health Provider Current PHONE: [phone] ANDREA So Primary Care 01/09/2018-[employer] PHONE: Unknown Robb Marcano - Case or Kitchen Helper [facility] PHONE: [phone] Jeannette has no Care Guidelines for this patient. Care History Medical/Surgical 01/07/2018 [facility] - Patient is currently living at [facility]. - CHW spoke with PCP who stated patient was referred to [facility] in [place] in October. - MRI was ordered in November by [facility], and showed back problems (chronic ongoing condition). 11/28/2017 [facility] Care Recommendation: This patient has had 5 or more Emergency Department visits in the last 12 months. Patient requires education on the scope and purpose of the ED as an acute care provider not a Primary Care Provider and should not be utilized for chronic conditions. If patient returns to ED please contact Community Health WorkerJoanna at [phone]. These are guidelines and the provider should exercise clinical judgment when providing care. Behavioral 05/15/2018 [facility] - Gisele Currently receiving mental health services through [facility] in [place],[facility]; Please contact [facility] for mental health concerns. [phone] E.D. VISIT COUNT (12 MO.) [address] TOTAL 11 NOTE: Visits indicate total known visits. ED/UCC VISIT TRACKING (12 MO.) 10/17/2018 13:16 [facility] [place] TYPE: Emergency COMPLAINT: - BLOOD PRESSURE PROBLEM 10/05/2018 10:57 [facility] [place] TYPE: Emergency COMPLAINT: - ALTERED LOC DIAGNOSES: - Major depressive disorder, single episode, unspecified - Unspecified dementia without behavioral disturbance - Essential (primary) hypertension - Type 2 diabetes mellitus without complications - Other care home (current) drug therapy - Morbid (severe) obesity due to excess calories - Allergy status to other drugs, medicaments and biological substances status - Gastro-esophageal reflux disease without esophagitis 07/11/2018 10:59 [facility] [place] TYPE: Emergency COMPLAINT: - PSYCH EVALUATION,MEDICAL CLEARANCE DIAGNOSES: - Gastro-esophageal reflux disease without esophagitis - Morbid (severe) obesity due to excess calories - Allergy status to other drugs, medicaments and biological substances status - Essential (primary) hypertension - Other termite exterminator helper (current) drug therapy - Major depressive disorder, [...] depressive disorder, single episode, unspecified - Other termite exterminator helper (current) drug therapy - Urinary tract infection, [...] status to analgesic agent status - Other care home (current) drug therapy - Reaction to severe stress, unspecified - Major depressive disorder, single episode, unspecified - Morbid (severe) obesity due to excess calories - Type 2 diabetes mellitus without complications - Gastro-esophageal reflux disease without esophagitis 12/26/2017 10:35 [facility] [place] TYPE: Emergency COMPLAINT: - ALTERED MENTAL STATUS DIAGNOSES: - Adverse effect of other antipsychotics and neuroleptics, initial encounter - Personal history of nicotine dependence - Altered mental status, unspecified 12/25/2017 22:50 [facility] [place] TYPE: Emergency COMPLAINT: - NOT FEELING WELL DIAGNOSES: - Hallucinations, unspecified - Personal history of transient ischemic attack (TIA), and cerebral infarction without residual deficits - Personal history of nicotine dependence 11/17/2017 16:54 [facility] [place] TYPE: Emergency COMPLAINT: - BACK PAIN DIAGNOSES: - Other chronic pain - Low back pain - Personal history of nicotine dependence 11/10/2017 21:55 [facility] TYPE: Emergency DIAGNOSES: 0. SOB, CP AND PRESSURE INPATIENT VISIT TRACKING (12 MO.) No inpatient visits to display in this time frame [id number]
== END 2018-10-17 15:31 | disposition home or self-care (01) ==
LOC: ED 13:16
DX: R41.0 Disorientation, unspecified (principal); E11.9 Type 2 diabetes mellitus without complications; E66.01 Morbid (severe) obesity due to excess calories; I11.9 Hypertensive heart disease without heart failure; I25.10 Atherosclerotic heart disease of native coronary artery without angina pectoris; F32.9 Major depressive disorder, single episode, unspecified; K21.9 Gastro-esophageal reflux disease without esophagitis; F03.90 Unspecified dementia, unspecified severity, without behavioral disturbance, psychotic disturbance, mood disturbance, and anxiety; Z86.73 Personal history of transient ischemic attack (TIA), and cerebral infarction without residual deficits; Z87.891 Personal history of nicotine dependence; Z90.710 Acquired absence of both cervix and uterus; Z88.6 Allergy status to analgesic agent; Z88.8 Allergy status to other drugs, medicaments and biological substances; Z79.899 Other long term (current) drug therapy
CPT/HCPCS: 70450; 71045; 80053; 81001; 85025; 99285-25; G0480

== ENCOUNTER 2018-11-15 16:23 | Emergency (ER) | payer MEDICARE, OTHER ==
[~2018-11-15] VITALS: Ht 147.3 cm; Wt 104.8 kg
--- OUTSIDE RECORDS SUMMARY | 2018-11-15 16:26 | XMS ---
PreManage Notification: MAJOR GROVES Security Community Midwife Events No recent Security Events currently on file CRITERIA MET - Group Notification - [facility] - Has Care Guidelines - POLST - PDMP - [facility] - 2 Visits in 30 Days CARE PROVIDERS Sera Hernandez Clerk Manager/Accident Investigator 02/17/2017-Current PHONE: [phone] STEPHANIE DAY Nurse Practitioner Current PHONE: [phone] ALFRED OBRIEN [facility] 04/04/2018-Current A PHONE: [phone] CARLY LAMBERT, Family Medicine 01/08/2018-Arsh So PHONE: Unknown DR MENDEZ Primary Care 07/03/2017-Current DURAN PHONE: [phone] STEPHANIE DAY Primary Care Current PHONE: Unknown Sera Hernandez Primary Care 02/17/2017-Current PHONE: [phone] [facility] Mental Health Provider Current PHONE: [phone] Robb Marcano - Case or Black Top Machine Operator Current [employer] PHONE: [phone] Jeannette has no Care Guidelines for this patient. Care History Medical/Surgical 01/07/2018 [facility] - Patient is currently living at [facility]. - CHW spoke with PCP who stated patient was referred to [facility] in [place] in October. - MRI was ordered in November by [facility], and showed back problems (chronic ongoing condition). 11/28/2017 [facility] Care Recommendation: This patient has had 5 or more Emergency Department visits in the last 12 months. Patient requires education on the scope and purpose of the ED as an acute care provider not a Primary Care Provider and should not be utilized for chronic conditions. If patient returns to ED please contact Community Health WorkerJoanna at [phone]. These are guidelines and the provider should exercise clinical judgment when providing care. Behavioral 05/15/2018 [facility] - Gisele Currently receiving mental health services through [facility] in [place]; Please contact [facility] for mental health concerns. [phone] E.D. VISIT COUNT (12 MO.) 4 [facility] 8 [facility] TOTAL 12 NOTE: Visits indicate total known visits. ED/UCC VISIT TRACKING (12 MO.) 11/15/2018 16:25 [facility] [place] TYPE: Emergency COMPLAINT: - MEDICAL CLEARANCE 10/25/2018 13:50 [facility] [place] TYPE: Emergency DIAGNOSES: - DECREASED LOC - Disorientation, unspecified 10/17/2018 13:16 [facility] [place] TYPE: Emergency COMPLAINT: - BLOOD PRESSURE PROBLEM DIAGNOSES: - Morbid (severe) obesity due to excess calories - Personal history of nicotine dependence - Type 2 diabetes mellitus without complications - Allergy status to other drugs, medicaments and biological substances status - Unspecified dementia without behavioral disturbance - Other half-way (current) drug therapy - Allergy status to analgesic agent status - Acquired absence of both cervix and uterus - Personal history of transient ischemic attack (TIA), and cerebral infarction without residual deficits - Hypertensive heart disease without heart failure - Disorientation, unspecified - Gastro-esophageal reflux disease without esophagitis - Major depressive disorder, single episode, unspecified - Atherosclerotic heart disease of [place] coronary artery without angina pectoris 10/05/2018 10:57 [facility] [place] TYPE: Emergency COMPLAINT: - ALTERED LOC DIAGNOSES: - Major depressive disorder, single episode, unspecified - Unspecified dementia without behavioral disturbance - Essential (primary) hypertension - Type 2 diabetes mellitus without complications - Other half-way (current) drug therapy - Morbid (severe) obesity [...] status - Essential (primary) hypertension - Other half-way (current) drug therapy - Major depressive disorder, [...] Gastro-esophageal reflux disease without esophagitis 12/26/2017 10:35 [facility] [place] TYPE: Emergency COMPLAINT: - ALTERED MENTAL STATUS DIAGNOSES: - Adverse effect of other antipsychotics and neuroleptics, initial encounter - Personal history of nicotine dependence - Altered mental status, unspecified 12/25/2017 22:50 [facility] [place] TYPE: Emergency COMPLAINT: - NOT FEELING WELL DIAGNOSES: - Hallucinations, unspecified - Personal history of transient ischemic attack (TIA), and cerebral infarction without residual deficits - Personal history of nicotine dependence 11/17/2017 16:54 [facility] [place] TYPE: Emergency COMPLAINT: - BACK PAIN DIAGNOSES: - Other chronic pain - Low back pain - Personal history of nicotine dependence INPATIENT VISIT TRACKING (12 MO.) No inpatient visits to display in this time frame [id number]
[2018-11-15] MEDS ORDERED: XANAX0.5 MG PO (17:15)
== END 2018-11-15 21:46 | disposition home or self-care (01) ==
LOC: ED 16:23
DX: Z00.8 Encounter for other general examination (principal); I10 Essential (primary) hypertension; E11.9 Type 2 diabetes mellitus without complications; E66.01 Morbid (severe) obesity due to excess calories; I25.10 Atherosclerotic heart disease of native coronary artery without angina pectoris; K21.9 Gastro-esophageal reflux disease without esophagitis; F32.9 Major depressive disorder, single episode, unspecified; F03.90 Unspecified dementia, unspecified severity, without behavioral disturbance, psychotic disturbance, mood disturbance, and anxiety; Z86.73 Personal history of transient ischemic attack (TIA), and cerebral infarction without residual deficits; Z87.891 Personal history of nicotine dependence; Z90.710 Acquired absence of both cervix and uterus; Z88.8 Allergy status to other drugs, medicaments and biological substances; Z88.6 Allergy status to analgesic agent; Z79.899 Other long term (current) drug therapy
CPT/HCPCS: 99283